=== PATIENT | male | born 1970 | race Two or more races ===

== ENCOUNTER → 2025-02-20 | Outpatient (CLI) | payer BC, SELFPAY | END | disposition home or self-care (01) | LOC: LABSPEC 12:28 | PROVIDERS: Referring Provider Dermatology; Visit Provider Dermatology | DX: L08.0 Pyoderma (principal) | CPT/HCPCS: 87070; 87077; 87186; 87205 ==

== ENCOUNTER 2025-03-24 10:45 | Emergency (ER) | payer BC, SELFPAY ==
[2025-03-24] VITALS (7 sets, daily range): BP systolic 132–157; BP diastolic 78–114; PULSE 73–96; RESP 11–18; TEMP 36.4–36.6; O2SAT 95–99; BMI 35.8
[2025-03-24 13:28] LABS: Anion Gap 12 (5-15); BUN 13 mg/dL (4-19); BUN/Creat Ratio 12.6 RATIO (10-20); Calcium,Total 8.7 mg/dL (7.6-11.0); Carbon Dioxide 22.0 mmol/L (21.0-32.0); Chloride 105 mmol/L (98-108); Estimated Creatinine Clearance 110.87 ml/min (50-250); Glucose 95 mg/dL (70-99); Potassium 4.3 mmol/L (3.3-5.1)
== END 2025-03-24 14:48 | disposition home or self-care (01) ==
PROVIDERS: Emergency Provider Emergency Medicine; Visit Provider Emergency Medicine
DX: R09.A2 Foreign body sensation, throat (principal); S00.86XA Insect bite (nonvenomous) of other part of head, initial encounter; W57.XXXA Bitten or stung by nonvenomous insect and other nonvenomous arthropods, initial encounter; I10 Essential (primary) hypertension; B95.8 Unspecified staphylococcus as the cause of diseases classified elsewhere; Z79.899 Other long term (current) drug therapy
CPT/HCPCS: 70491; 80048; 99283; Q9967; A4216

== ENCOUNTER → 2025-04-10 | Outpatient (CLI) | payer BC, SELFPAY | END | disposition home or self-care (01) | LOC: LABSPEC 15:14 | PROVIDERS: Referring Provider Nurse Practitioner Family; Visit Provider Nurse Practitioner Family | DX: L73.9 Follicular disorder, unspecified (principal) | CPT/HCPCS: 87070; 87205 ==

== ENCOUNTER 2025-08-23 07:10 | Emergency (ER) | payer BC, SELFPAY ==
[2025-08-23 07:11] VITALS: BP 152/98; PULSE 100; RESP 15; TEMP 36.3; O2SAT 100; BMI 38.2
--- NOTE | 2025-08-23 07:28 | EKG12_ITS ---
Test Reason : CP Blood Pressure : */* mmHG Vent. Rate : 103 BPM Atrial Rate : 103 BPM P-R Int : 136 ms QRS Dur : 78 ms QT Int : 344 ms P-R-T Axes : 19 0 18 degrees QTcB Int : 450 ms Sinus tachycardia Low voltage QRS Inferior infarct , age undetermined Abnormal ECG Confirmed by ADRI PEREIRA, MONI ([id number]), editor farm journal RAYO FOOTE ([id number]) on 08/25/2025 6:09:05 AM Referred By: BB Confirmed By: MONI RUSH MD
--- NOTE | 2025-08-23 07:33 | ED.VIS.CHEST ---
HPI History of Present Illness Chief Complaint: Chest Pain Informant: patient Narrative Narrative: Patient is a 54-year-old male with a history of LAD stent placement presenting with acute dyspnea and chest tightness. - Symptoms began upon waking around 0530 this morning. - Reports inability to catch my breath and really tight chest discomfort, preventing deep inhalation. - Associated symptoms include lightheadedness and nausea. - Denies focal chest pain, cough, or abdominal pain. - Noted tightness in legs and forearms, similar to sensations experienced during previous stent placement. - Denies lower extremity edema. - No prior history of DVT or PE. Denies history of asthma or COPD. - Engages in occasional cigar smoking, no cigarettes. - Yesterday, engaged in hunting activities involving significant physical exertion and sweating; minimal fluid intake reported. - Consumed a couple of glasses of wine last night. - Currently taking Valsartan and 81 mg aspirin; no other antiplatelet or anticoagulant use at this time. [facility] Medical History Coronary artery disease Myocardial infarct HTN (hypertension) Home Medications ?Medication ?Instructions ?Recorded ?Last Taken ?Type amlodipine 5 mg tablet 5 mg PO DAILY 03/24/25 08/23/25 History carvedilol 12.5 mg tablet 12.5 mg PO BID 03/24/25 08/23/25 History ergocalciferol (vitamin D2) 1,250 1,250 mcg PO QWEEK 03/24/25 08/23/25 History mcg (50,000 unit) capsule valsartan 320 mg tablet 320 mg PO DAILY 03/24/25 08/23/25 History testosterone cypionate 200 mg/mL 200 mg IM Q14D 08/23/25 Unknown History intramuscular oil Allergy/AdvReac Type Severity Reaction Status Date / Time No Known Allergies Allergy Verified 08/23/25 07:27 Surgical History Stented coronary artery Social History Smoking Status: Current some day smoker tobacco type: cigars ROS ROS ED Constitutional Constitutional ED: Denies chills or fever(s) Eyes Eyes: Denies change in vision or diplopia ENT ENT ED: Denies rhinorrhea or sore throat Cardiovascular Cardiovascular: Reports as per HPI and chest pain; Denies palpitations Respiratory/Chest Respiratory/Chest: Reports cough and dyspnea; Denies sputum Gastrointestinal Gastrointestinal: Reports nausea; Denies abdominal pain, diarrhea or vomiting Genitourinary Genitourinary ED: Denies dysuria or hematuria Musculoskeletal Musculoskeletal: Denies back pain or neck pain Integumentary Denies abscess or rash Neurologic Neurologic: Denies headache(s), paresthesias or weakness Psychiatric Psychiatric: Denies suicidal thoughts EXAM Physical Exam Const Vital Signs: 08/23/25 07:11 08/23/25 07:15 08/23/25 07:28 Temperature 97.4 F L Temperature Source Oral Pulse Rate 100 Respiratory Rate 15 Respiratory Effort Normal Respiratory Pattern Normal Blood Pressure 152/98 H Blood Pressure Mean 116 Pulse Ox 100 Oxygen Delivery Method Room Air Room Air Positive well nourished and well developed General Appearance ED: well developed and NAD HEENT Reports moist mucous membranes normocephalic and atraumatic Eyes PERRL and EOMs intact bilaterally Neck full ROM and supple Neck Narrative: Trachea midline. No JVD. Resp normal respiratory effort and clear to auscultation bilaterally Resp Narrative: Lungs are clear but possible decreased breath sounds right apex. Exam somewhat limited due to body habitus. Cardio regular rate, regular rhythm and no murmurs Rate: other Other Details: Heart rate around 100 GI non-tender and non-distended Auscultation: normoactive bowel sounds Palpation: soft Back/Spine no CVA tenderness General Back: other FROM Extremity normal to inspection General Extremety ED: Negative for edema, pulses abnormal or tenderness General Extremity: Negative for edema or pulses abnormal Neuro oriented x3, CN's II-XII intact bilaterally and no sensory deficits noted Sensorium / Orientation: awake and alert Motor Exam: strength 5/5 throughout Psych mental status grossly normal Skin no rashes or lesions noted and no wounds Heart Score History: Moderately Suspicious ECG: Normal Age: >45 - <65 years Risk Factors: >/= 3 Risk Factors or History of CAD Troponin: </= Normal Limit Score: 4 MDM MDM MDM Narrative Medical decision making narrative: Assessment: The patient is a 54-year-old male with PMH of prior coronary stent placement presenting for acute dyspnea, chest tightness, and diffuse extremity muscle tightness. Initial EKG is normal appearing with only mild tachycardia, troponin 8 ng/L and repeat 7 ng/L are within normal range and trending downward, D-dimer is normal ruling out pulmonary embolism, and normal proBNP rules out decompensated heart failure. After administration of 1 L IV fluids the dyspnea, chest tightness, and muscle symptoms resolved completely, supporting dehydration with associated muscle spasm?including possible diaphragmatic involvement?as the most likely etiology; acute coronary syndrome is unlikely given normal EKG and serial troponins. Plan: - Administered 1 L IV crystalloid for volume repletion. - Provided ondansetron for intermittent nausea. - Reassured patient; reviewed return precautions and outpatient follow-up instructions. - Discharged home in stable condition once asymptomatic and vitals remained normal. Diagnostics: - EKG interpreted: normal sinus rhythm, mild tachycardia, no ST-T ischemic changes. Independently interpreted by me, Bernardo Mota. - Labs: D-dimer normal; troponin 8 --> 7 ng/L; proBNP normal; BUN 20 mg/dL and creatinine 1.15 mg/dL consistent with mild pre-renal dehydration. Reevaluations: - Symptoms resolved after IV fluids; breathing comfortable, chest tightness and extremity discomfort resolved; vitals stable. Lab Data Attestation: I reviewed the patient's lab results. Labs: Laboratory Results - last 24 hr 08/23/25 08/23/25 08/23/25 07:13 07:56 09:25 WBC 6.9 RBC 4.91 Hgb 15.6 Hct 45.5 MCV 92.7 MCH 31.8 MCHC 34.3 RDW Std Deviation 42.6 RDW Coeff of Negrita 12.4 Plt Count 213 MPV 10.0 Immature Gran % (Auto) 0.400 Neut % (Auto) 47.5 Lymph % (Auto) 36.3 Holt % (Auto) 11.3 H Eos % (Auto) 3.6 Baso % (Auto) 0.9 Absolute Neuts (auto) 3.3 Absolute Lymphs (auto) 2.51 Nucleated RBC % 0 APTT 28.4 D-Dimer Quant (PE/DVT) 0.28 Sodium 138 Potassium 3.5 Chloride 103 Carbon Dioxide 19.5 L Anion Gap 15 BUN 20 H Creatinine 1.15 Estim Creat Clear Calc 99.76 Est GFR (MDRD) Non-Af 76 BUN/Creatinine Ratio 17.0 Glucose 120 H Calcium 8.9 Troponin T High Sens 8 Troponin T Hi Sens 2 Hr Cancelled 7 NT pro BNP II < 36 Radiography Diagnostic Testing: Clinical Impression(s) from Imaging Studies Chest X-Ray 08/23/25 07:40 IMPRESSION: No evidence of acute cardiopulmonary pathology. Reading Location: [facility] Rhythm Strip Rhythm Strip: Sinus Tach Rate: 103 Ectopy: None EKG Initial EKG: Attestation: I personally reviewed and interpreted this EKG as follows: Interpretation: No Acute Injury Pattern and Sinus Tachycardia Comments: Nml axis & intervals; nml EKG Prior EKG tracings: not available for review Prior: No Prior Discharge Plan Triage Chief Complaint: Chest Pain ED Provider: Bernardo Mota Dx/Rx/DC Orders Clinical Impression: Dehydration, Acute dyspnea, History of CAD (coronary artery disease) Instructions: ED Dehydration (Adult) Prescriptions: No Action testosterone cypionate 200 mg/mL oil 200 mg IM Q14D carvedilol 12.5 mg tablet 12.5 mg PO BID amlodipine 5 mg tablet 5 mg PO DAILY valsartan 320 mg tablet 320 mg PO DAILY ergocalciferol (vitamin D2) 1,250 mcg (50,000 unit) capsule 1,250 mcg PO QWEEK Primary Care Provider: DENNY GOMEZ Referrals: DENNY GOMEZ [Other] - 3-5 Days if not improving Print Language: Maltese Disposition Disposition: Home, Self Care
[2025-08-23 07:38] LABS: Hematocrit 45.5 % (40-54); Hemoglobin 15.6 g/dL (13.0-16.5); Immature Granulocytes Count 0.030 X10^3/uL (0.0-0.0); Mean Corp Hgb Conc 34.3 g/dL (32-36); Mean Corpuscular Volume 92.7 fL (80-94); Mean Platelet Vol. 10.0 fl (6.2-12.0); NRBC Flagged by Analyzer 0 % (0-5); Platelet Count 213 K/mm3 (150-450); RBC Distribution Width CV 12.4 % (11.6-14.6); RBC Distribution Width SD 42.6 fl (35.1-43.9); Red Blood Count 4.91 M/mm3 (4.6-6.2); White Blood Count 6.9 K/mm3 (4.4-11.0)
--- NOTE | 2025-08-23 07:40 | RAD_ITS ---
PROCEDURE: CHEST 1 VIEW (PORTABLE) 08/23/2025 REASON FOR EXAM: CHEST PAIN TECHNIQUE: Frontal view of the chest. COMPARISON: None FINDINGS: The lungs are clear. The heart borders mediastinum and pulmonary vascular pattern are normal. The upper abdominal bowel gas pattern is normal. There are no bony abnormalities of the chest. RAD/Chest 1 View (Portable) IMPRESSION: No evidence of acute cardiopulmonary pathology. Reading Location: [id number]
[2025-08-23] MEDS: 0.9% Normal Saline (500mL Bag) 500 ML 999 ML IV (07:44)
[2025-08-23 07:57] LABS: Troponin T High Sensitivity 8 ng/L (<=22)
[2025-08-23 08:00] LABS: Anion Gap 15 (5-15); BUN 20 mg/dL (4-19); BUN/Creat Ratio 17.0 RATIO (10-20); Calcium,Total 8.9 mg/dL (7.6-11.0); Carbon Dioxide 19.5 mmol/L (21.0-32.0); Chloride 103 mmol/L (98-108); Estimated Creatinine Clearance 99.76 ml/min (50-250); Glucose 120 mg/dL (70-99); Potassium 3.5 mmol/L (3.3-5.1); Pro- Brain NATRIURETIC PEPTIDE < 36 pg/mL (<=900)
--- OUTSIDE RECORDS SUMMARY | 2025-08-23 08:07 | XMS RPT_ITS | CCD ---
Author Organization [facility] Inform ion Partnership [facility] Care Team Providers Care Dimethylaniline Sulfator Operator Name Role Phone Unavailable Primary Care Provider UnavailZULY Willis MD Attending Unavailabl marisol GOMEZ MD, ZULY Primary Care Unavailmichael GOMEZ MD, [facility] Primary Care UnavailBart BARTLETT, DEYSI Attending Unavailable JASON PEREIRA, ZULY Primary Care UnavailSHARITA Jimenez CNP Attending Unavailable JASON PEREIRA, ZULY Primary Care UnavailZULY Willis MD Attending Unavailmichael GOMEZ MD, ZULY Primary Care Unavailmichael GOMEZ MD, ZULY Primary Care UnavailSHARITA Jimenez CNP Attending Unavailable ZULY GOMEZ MD Attending Unavailmichael GOMEZ MD, ZULY Primary Care Unavailabl marisol GOMEZ MD, ZULY Primary Care Unavailmichael GOMEZ MD, ZULY Primary Care Unavailmichael GOMEZ MD, ZULY Attending Unavailabl marisol GOMEZ MD, ZULY Attending Unavailabl marisol GOMEZ MD, [facility] Primary Care Unavailabl marisol GOMEZ MD, [facility] Primary Care Unavailabl marisol BARTLETT, DEYSI Attending Unavailable JASON PEREIRA, ZULY Attending Unavailmichael GOMEZ MD, [facility] Primary Care Unavailabl marisol GOMEZ MD, [facility] Primary Care Unavailabl marisol GOMEZ MD, ZULY Attending Unavailabl marisol GOMEZ MD, ZULY Attending Unavailabl marisol GOMEZ MD, [facility] Primary Care Unavailmichael GOMEZ MD, ZULY Attending Unavailmichael GOMEZ MD, [facility] Primary Care Unavailabl e Care Physician, No Primary Primary Care Provider Unavailable Crow PEREIRA, Dr. Broussard Attending Provider Crow PEREIRA, Dr. Broussard Referring Provider Dr. Benigno Berry DO Emergency Provider JASON ZULY Primary Care Provider Dr. Benigno Berry DO Attending Provider Hartong DEVELOPMENTAL WRITING INSTRUCTOR-C, Joy Attending Provider Hartong DEVELOPMENTAL WRITING INSTRUCTOR-C, Joy Referring Provider Care Physician, No Primary Primary Care Unava ilable Bobo Maria Attending Unavailable Bobo Maria Referring Unavailable Joy Reyes Attending Unavailable Joy Reyes Referring Unavailable ARIELLA, MICKY Primary Care Unavailable Benigno Berry Attending Unavailable [facility] [place] Primary Care Unavailable JASON PEREIRA, [facility] Primary Care Physician JASON PEREIRA, [facility] Care Unavailabl marisol GOMEZ MD, [facility] Primary Care Unavailabl marisol GOMEZ MD, [facility] Primary Care Unavailabl e SHARITA LO CNP Attending Unavailable JASON PEREIRA, [facility] Primary Care Unavailabl ALTAGRACIA Benson MD Referring Unavailab renae GOMEZ MD, [facility] Unavailabl marisol GOMEZ MD, [facility] Primary Care Unavailabl marisol GOMEZ MD, [facility] Primary Care Unavailabl e JASON PEREIRA, [facility] Primary Care Unavailabl marisol GOMEZ MD, [facility] Primary Care Unavailabl marisol GOMEZ MD, [facility] Primary Care Unavailabl marisol GOMEZ MD, ZULY Attending Unavailabl marisol GOMEZ MD, [facility] Primary Care Unavailabl marisol GOMEZ MD, [facility] Primary Care Unavailabl marisol GOMEZ MD, [facility] Primary Care Unavailabl marisol GOMEZ MD, ZULY Attending Unavailabl e JASON PEREIRA, [facility] Primary [facility] Unavailabl marisol GOMEZ MD, [facility] Primary Care Unavailabl DEYSI Dawkins Attending Unavailable JASON PEREIRA, [facility] Primary Care Unavailabl GODWIN Alcocer MD Attending Unavailable JASON PEREIRA, [facility] Unavailabl marisol GOMEZ MD, [facility] Primary [facility] Unavailabl marisol GOMEZ MD, [facility] Primary Care Unavailabl e SHARITA LO CNP Attending SHARITA Mcneill CNP Referring ZULY Owens MD Primary Care ZULY Taylor MD Attending David GOMEZ MD, ZULY Primary Care DEYSI Saleem Attending Unavailable JASON PEREIRA, ZULY Primary Care David damon Medications Current Medications Medication Drug Class(es) Dates Sig (Normalized) Sig (Original) amLODIPine 5 mg oral tablet (4 sources) Dihydropyridine Calcium Channel Koffi Start: 04-23-2025 amLODIPine 5 mg oral tablet 5 mg 1 tabs, ORAL, DAILY, 90 tabs, Date: 04/23/25 2:16:00 PM EDT, [id number], Tablet, 1 tabs ORAL DAILY, 180.34, 02/22/2024 12:18:00 EDT, Height/Length Dosing, cm, 119.4, 02/22/2024 12:18:00 EDT, Weight Dosing, kg Start Date: 04/23/25 Status: Ordered Medication Dispense Status: Completed Quantity: 90.0 Unit: tabs Total Allowed Fills: 4 Fills Dispensed: 0 Start: 03-24-2025 take 1 tablet by michelle th once daily Amlodipine 5 mg tablet Active 5 mg PO DAILY March 24, 2025 12:00am aspirin 81 mg delayed release oral tablet (6 sources) Platelet Aggregation Inhibitor, Nonsteroidal Anti-inflammatory Drug Start: 01-09-2015 aspirin 81 mg ora l delayed release tablet 81 mg 1 tabs, ORAL, DAILY WITH BREAKFAST, Date: 01/09/15 1:31:00 PM EDT, Tablet EC Start Date: 01/09/15 Status: Ordered Medication Dispense Status: Completed Total Allowed Fills: 1 Fills Dispensed: 0 Comment on above: Take 1 tablet by michelle th once daily. carvedilol 12.5 mg oral tablet (4 sources) alpha-Adrenergic Koffi, beta-Adrenergic Koffi Start: 04-23-2025 carvedilol 12.5 mg oral tablet 12.5 mg 1 tabs, ORAL, BID, 180 tabs, Date: 04/23/25 2:16:00 PM EDT, [id number], Tablet, 1 tabs ORAL BID, 180.34, 02/22/2024 12:18:00 EDT, Height/Length Dosing, cm, 119.4, 02/22/2024 12:18:00 EDT, Weight Dosing, kg Start Date: 04/23/25 Status: Ordered Medication Dispense Status: Completed Quantity: 180.0 Unit: tabs Total Allowed Fills: 4 Fills Dispensed: 0 Start: 03-24-2025 take 1 tablet by michelle th twice daily Carvedilol 12.5 mg tablet Active 12.5 mg PO TWICE A DAY March 24, 2025 12:00am cyclobenzaprine hydrochloride 10 mg oral tablet (3 sources) Muscle Relaxant Start: 01-02-2006 take 1 tablet by mouth three times daily as needed FLEXERIL 10 MG OR TABS 1 tab po TID prn 90 0 01/02/2006 Active diclofenac sodium 75 mg delayed release oral tablet (3 sources) Nonsteroidal Anti-inflammatory Drug Start: 03-02-2006 take 1 capsule by mouth twice daily VOLTAREN 75 MG OR TBEC Indications: Displacement of lumbar intervertebral disc without myelopathy 1 CAPSULE PO BID 60 0 03/02/2006 Active doxycycline hyclate 100 mg oral capsule (2 sources) Tetracycline-class Drug Start: 03-24-2025 take 1 capsule by mouth twice daily Doxycycline Hyclate 100 mg capsule Active 100 mg PO TWICE A DAY March 24, 2025 12:00am ergocalciferol 1.25 mg oral capsule (4 sources) Provitamin D2 Compound Start: 04-23-2025 ergocalciferol 1.25 mg (50,000 intl units) oral capsule = Vitamin D 50,000 intl_unit 1 caps, ORAL, MONDAY, 13 caps, Date: 04/23/25 2:16:00 PM EDT, [facility]/pharmacy #[id number], Capsule, 1 caps ORAL MONDAY, 180.34, 02/22/2024 12:18:00 EDT, Height/Length Dosing, cm, 119.4, 02/22/2024 12:18:00 EDT, Weight Dosing, kg Start Date: 04/23/25 Status: Ordered Medication Dispense Status: Completed Quantity: 13.0 Unit: caps Total Allowed Fills: 4 Fills Dispensed: 0 Start: 03-24-2025 Ergocalciferol (Vitamin D2) 1,250 mcg (50,000 unit) capsule Active 1250 ug PO EVERY WEEK March 24, 2025 12:00am fluticasone propionate 0.05 mg/actuat metered dose nasal spray (2 sources) Corticosteroid Start: 02-05-2024 Flonase 50 mcg/inh nasal spray 2 sprays, Nasal, DAILY, # 16 g, Refill(s) 0, Date: 02/05/24 1:42:00 PM EDT Start Date: 02/05/24 Status: Ordered Medication Dispense Status: Completed Quantity: 16.0 Unit: g Total Allowed Fills: 1 Fills Dispensed: 0 methocarbamol 750 mg oral tablet (3 sources) Muscle Relaxant Start: 09-22-2006 take 1-2 tablets by mouth every eight hours as needed ROBAXIN-750 750 MG OR TABS Indications: Displacement of lumbar intervertebral disc without myelopathy , Sprain of lumbar region 1-2 TABLET EVERY 8 HOURS NEEDED 50 0 09/22/2006 Active methylPREDNISolone 4 mg oral tablet (3 sources) Corticosteroid Start: 09-22-2006 MEDROL (JONNIE) 4 MG OR TABS Indications: Displacement of lumbar intervertebral disc without myelopathy , Sprain of lumbar region as directed 1 0 09/22/2006 Active valsartan 320 mg oral tablet (4 sources) Angiotensin 2 Receptor Koffi Start: 04-23-2025 valsartan 320 mg oral tablet 1 tabs, ORAL, DAILY, 90 tabs, Date: 04/23/25 2:16:00 PM EDT, [id number], 1 tabs ORAL DAILY, 180.34, 02/22/2024 12:18:00 EDT, Height/Length Dosing, cm, 119.4, 02/22/2024 12:18:00 EDT, Weight Dosing, kg Start Date: 04/23/25 Status: Ordered Medication Dispense Status: Completed Quantity: 90.0 Unit: tabs Total Allowed Fills: 4 Fills Dispensed: 0 Start: 03-24-2025 take 1 tablet by once daily Valsartan 320 mg tablet Active 320 mg PO DAILY March 24, 2025 12:00am Completed/Discontinued Medications Medication Drug Class(es) Dates Sig (Normalized) Sig (Original) acetaminophen 300 mg / codeine phosphate 30 mg oral tablet (1 source) Opioid Agonist Start: 01-12-2023 End: 01-15-2023 take 1-2 tablets by mouth twice daily acetaminophen-cod eine (TYLENOL-CODEINE #3) 300-30 mg per tablet Indications: Ingrowing nail , Pain in toe of right foot , Pain in toe of left foot , H/O ingrown nail Take 1-2 tablets by mouth twice daily for 3 days. 6 tablet 0 01/12/2023 01/15/2023 Comment on above: Take 1-2 tablets by mouth twice daily for 3 days. acetaminophen 325 mg / oxyCODONE hydrochloride 5 mg oral tablet (4 sources) Opioid Agonist Start: 11-07-2022 End: 11-14-2022 take 1 tablet by mouth twice daily oxyCODONE-acetami nophen (PERCOCET) 5-325 mg tablet Indications: Ingrowing nail Take 1 tablet by mouth twice daily for 7 days. 14 tablet 0 11/07/2022 11/14/2022 Start: 09-22-2006 take 1 tablet by michelle th every six hours as needed PERCOCET 5-325 MG OR TABS Indications: Displacement of lumbar intervertebral disc without myelopathy , Sprain of lumbar region 1 TABLET EVERY 6 HOURS NEEDED 28 0 09/22/2006 Active Comment on above: Take 1 tablet by michelle th twice daily for 7 days. 1 ml evolocumab 140 mg/ml prefilled syringe (4 sources) PCSK9 Inhibitor Start: 07-08-2025 Repatha Prefilled Syringe 140 mg/mL subcutaneous solution 140 mg 1 mL, Subcutaneous, [id number], inject 1 mL subcutaneously every 14 days. rotate injection sites, 6 mL, Date: 07/08/25 3:42:00 PM EDT, [facility]/pharmacy #[id number], Solution, 1 mL Subcutaneous [id number],Instr:inject 1 mL subcutaneously every 14 days. rotate injection sites, 180.34, 02/22/2024 12:18:00 EDT, Height/Length Dosing, cm, 119.4, 02/22/2024 12:18:00 EDT, Weight Dosing, kg Start Date: 07/08/25 Status: Ordered Medication Dispense Status: Completed Quantity: 6.0 Unit: mL Total Allowed Fills: 4 Fills Dispensed: 0 Start: 07-08-2025 Repatha Prefil led Syringe 140 mg/mL subcutaneous solution 140 mg, Subcutaneous, [id number], rotate injection sites, 2 EA, Date: 07/08/25 3:29:00 PM EDT, Solution Start Date: 07/08/25 Status: Ordered Medication Dispense Status: Completed Quantity: 2.0 Unit: EA Total Allowed Fills: 1 Fills Dispensed: 0 Start: 03-24-2025 Evolocumab (Ev olocumab 140 Mg/Ml Subcutaneous Syringe) 140 mg/mL syringe Active 140 mg SC March 24, 2025 12:00am multivitamin tablet (4 sources) take 1 tablet by mouth once daily multivitamin tablet Take 1 tablet by mouth once daily. 0 Active Comment on above: Take 1 tablet by michelle th once daily. olmesartan medoxomil 20 mg oral tablet (4 sources) Angiotensin 2 Receptor Koffi Start: 11-04-19 take 1 tablet by mouth once daily olmesartan (BENICAR) 20 mg tablet Take 1 tablet by mouth once daily. 30 tablet 11 11/04/2014 Active Comment on above: Take 1 tablet by michelle th once daily. simvastatin 40 mg oral tablet (4 sources) HMG-CoA Reductase Inhibitor Start: 01-28-20 take 1 tablet by mouth once daily at bedtime simvastatin (ZOCOR) 40 mg tablet Indications: Hyperlipemia Take 1 tablet by mouth daily at bedtime. 0 01/27/2015 Active Comment on above: Take 1 tablet by michelle th daily at bedtime. Testosterone Cypionate 200 mg/mL intramuscular solution (1 source) Start: 04-30-20 End: 10-15-19 Testosterone Cypionate 200 mg/mL intramuscular solution 200 mg 1 mL, IM, [id number], 6 mL, Date: 04/30/25 8:53:00 AM EDT, [facility]/pharmacy #[id number], Solution, 1 mL IM [id number],x12 weeks, Hypogonadism in male, 180.34, 02/22/2024 12:18:00 EDT, Height/Length Dosing, cm, 119.4, 02/22/2024 12:18:00 EDT, Weight Dosing, kg Start Date: 04/30/25 Stop Date: 10/15/25 Status: Ordered Quantity: 6.0 Unit: mL Repeat number: 2 Indications: Testicular hypofunction; Problems Active Problems Problem Classification Problem Date Documented Date Episodic/Chronic Abdominal pain (4 sources) Abdominal pain; Translations: [Right upper quadrant pain] 12-11-2024 Episodic Allergic reactions (4 sources) Allergic condition; Translations: [Eczema] 12-11-2024 Episodic Coronary atherosclerosis and other heart disease (2 sources) Coronary arteriosclerosis 02-01-2016 Chronic Disorders of lipid metabolism (8 sources) Hyperlipidemia; Translations: [Hyperlipidemia, unspecified] Onset: 4 05-29-2014 Chronic E Codes: Natural/environment (2 sources) Insect bite - wound; Translations: [Bitten or stung by nonvenomous insect and other nonvenomous arthropods, initial encounter] 03-24-2025 Episodic Essential hypertension (8 sources) Hypertensive disorder; Translations: [Essential (primary) hypertension] 09-05-2012 Chronic Nutritional deficiencies (2 sources) Vitamin D deficiency 07-19-2017 Chronic Other and unspecified benign neoplasm (2 sources) Pituitary microadenoma 07-05-2023 Episodic Other connective tissue disease (1 source) Pain of toe of right foot; Translations: [Pain in right toe(s)] 01-12-2023 Episodic Other connective tissue disease (1 source) Pain of toe of left foot; Translations: [Pain in left toe(s)] 01-12-2023 Episodic Other connective tissue disease (2 sources) Pain in right arm 04-06-2021 Episodic Other ear and sense organ disorders (4 sources) Impacted cerumen 04-27-2023 Episodic Other endocrine disorders (1 source) Hyperparathyroidism 07-05-2023 Chronic Other infections; including parasitic (2 sources) H/O: infectious disease; Translations: [Personal history of other infectious and parasitic diseases] 03-24-2025 Episodic Other nutritional; endocrine; and metabolic disorders (4 sources) Obese class I; Translations: [Obesity, unspecified] Onset: 6 12-09-2015 Chronic Other nutritional; endocrine; and metabolic disorders (1 source) Hypercalcemia 07-05-2023 Chronic Other nutritional; endocrine; and metabolic disorders (2 sources) Obesity 07-05-2023 Chronic Other screening for suspected conditions (not mental disorders or infectious disease) (6 sources) Decreased testosterone level ; Translations: [Other specified abnormal findings of blood chemistry] Onset: 3 11-15-2012 Episodic Other skin disorders (3 sources) Ingrowing nail; Translations: [Ingrowing nail] Episodic Other skin disorders (1 source) H/O: Disorder; Translations: [Personal history of diseases of the skin and subcutaneous tissue] 01-12-2023 Episodic Other skin disorders (1 source) Follicular disorder, unspecified; Translations: [Follicular disorder, unspecified] Onset: 5 Episodic Other upper respiratory disease (2 sources) Rhinitis 12-25-2023 Chronic Residual codes; unclassified (2 sources) Finding of neck region; Translations: [Other general symptoms and signs] 03-24-2025 Episodic Skin and subcutaneous tissue infections (1 source) Pyoderma; Translations: [Pyoderma] Onset: 5 Episodic Spondylosis; intervertebral disc disorders; other back problems (6 sources) Displacement of lumbar intervertebral disc without myelopathy; Translations: [Other intervertebral disc displacement, lumbar region] Onset: 6 11-29-2005 Chronic Unclassified (1 source) Foreign body sensation, throat; Translations: [Foreign body sensation, throat] Onset: 5 Unclassified (2 sources) Otalgia of right ear 05-29-2025 Unclassified (2 sources) Statin not tolerated (context-dependent category) 11-11-2022 Past or Other Problems Problem Classification Problem Date Documented Da te Episodic/Chronic Other and unspecified benign neoplasm (4 sources) Lipoma of buttock; Translations: [Benign lipomatous neoplasm of skin and subcutaneous tissue of trunk] Onset: 07-08-2014 07-08-2014 Episodic Other upper respiratory disease (4 sources) Deviated nasal septum; Translations: [Deviated nasal septum] Onset: 12-15-2010 12-15-2010 Episodic Other upper respiratory disease (4 sources) Hypertrophy of nasal turbinates; Translations: [Hypertrophy of nasal turbinates] Onset: 12-15-2010 12-15-2010 Episodic Sprains and strains (11 sources) Lumbar sprain; Translations: [Sprain of ligaments of lumbar spine, initial encounter] Onset: 03-02-2006 11-04-2021 Episodic Viral infection (5 sources) Verruca plantaris; Translations: [Plantar wart] Onset: 07-27-2016 07-27-2016 Episodic Results Test Name Value Interpretation Reference Range Facility [facility] ENDOCRN Physician Progre ss Noteon 07-02-2025 [facility] ENDOCRN Physician Progress Note XANDER THURMAN :1970 Registration Date:07/02/2025 Chief Complaint follow up for parathyroid/calcium History of Present Illness Apparently in [address] Pace - was told has pituitary microadenoma He had a MRI repeated 10/11 - Near complete resolution of previously seen 5 mm hypoenhancing lesion in the pituitary gland, now barely perceptible He has statin intolerance - sees Dr Kent - now takes repatha - had been off this and now resumed He underwent parathyroid exploration and removal of right upper parathyroid adenoma by Dr. Jenkins 02/20/24 His insurance declined to cover GLP1 meds for wgt loss He had made changes in his diet and has stopped ETOH - He had lost wgt but then gained some back - states went off course He would like to pursue compounded semaglutide - He has not seen Anamika Montero CNP - states with his sons wedding was busy and forgot He also did not see Dr Hubbard as advised - to get screened for [place] - plans to see now In past he was on testosterone shots - He had stopped when he had CAD and had stents placed 7 yrs ago Of note in March and April he had several episodes of skin rashes and was treated with steroids on at least 3 occasions - around that time he also had a repeat lab for testosterone done at 3pm which was low - Was started on Testosterone by PCP - He only took one dose - states may have felt better for 2 days but no difference - He did not continue that and would like to revisit this Physical Exam Vitals & Measurements Systolic Blood Pressure: 139 mmHg High (07/02/25 09:37:00) Diastolic Blood Pressure: 91 mmHg High (07/02/25 09:37:00) Peripheral Pulse Rate: 78 bpm (07/02/25 09:37:00) Mean Arterial Pressure: 107 mmHg (07/02/25 09:37:00) BP Site2: Left arm (07/02/25 09:37:00) Height/Length Measured: 180 cm (07/02/25 09:37:00) Weight Measured: 117 kg (07/02/25 09:37:00) Body Mass Index Measured: 36.11 kg/m2 (07/02/25 09:37:00) Weight Measured - lbs2: 258 lb (07/02/25 09:37:00) Height/Length Measured - in2: 70.87 in (07/02/25 09:37:00) Body Mass Index Measured English2: 36.11 kg/m2 (07/02/25:37:00) BSA: 2.42 m2 (07/02/25:37:00) Ht/Wt Measurement Refused by Patient?2: No (07/02/25 09:37:00) Depression Screening Scores Initial Depression Screen Score: 0 (07/02/25:37:00) Fall Risk Assessment Is the patient ambulatory (mobile): Yes (07/02/25:37:00) Have you had a fall within the past: No (07/02/25::) Have you had 2 or more falls in the past: No (07/02/25::) Comfortable in no acute distress Normal gait Medication Reconciliation What How Much When Instructions Contact Physician amLODIPine (amLODIPine 5 mg oral tablet) 1 Tabs Oral DAILY Ordering Physician: ZULY GOMEZ MD Contact prescribing physician if questions or concerns Contact Physician aspirin (aspirin 81 mg oral delayed release tablet) 1 Tabs Oral DAILY WITH BREAKFAST Ordering Physician: VAN FARLEY MD Contact prescribing physician if questions or concerns Contact Physician carvedilol (carvedilol 12.5 mg oral tablet) 1 Tabs Oral TWICE A DAY Ordering Physician: ZULY GOMEZ MD Contact prescribing physician if questions or concerns Contact Physician ergocalciferol = Vitamin D (ergocalciferol 1.25 mg (50,000 intl units) oral capsule = Vitamin D) 1 Capsules Oral MONDAY Ordering Physician: ZULY GOMEZ MD Contact prescribing physician if questions or concerns Contact Physician fluticasone nasal (Flonase 50 mcg/ inh nasal spray) 2 Sprays Nasal DAILY Contact prescribing physician if questions or concerns Contact Physician valsartan (valsartan 320 mg oral tablet) 1 Tabs Oral DAILY Ordering Physician: ZULY GOMEZ MD Contact prescribing physician if questions or concerns Assessment/Plan This Visit Diagnosis 1. 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 12/31/2025 +/- 28 days, Order for future visit-Diagnosis required, Dx: Low testosterone / Obesity / Pituitary microadenoma COMPMETA(CMP), ROUTINE, *Est. 12/31/2025 +/- 28 days, Order for future visit-Diagnosis required, Dx: Low testosterone / Obesity / Pituitary microadenoma FSH, ROUTINE, *Est. 12/31/2025 +/- 28 days, Order for future visit-Diagnosis required, Dx: Low testosterone / Obesity / Pituitary microadenoma IRON GROUP, ROUTINE, *Est. 12/31/2025 +/- 28 days, Order for future visit-Diagnosis required, Dx: Low testosterone / Obesity / Pituitary microade (more content not included)... Normal [facility] Medicine Physician P stacey Bui 05-29-2025 [facility] Medicine Physician Progress Note CUCA XANDER PLASCENCIA :1970 Registration Date:05/29/2025 Chief Complaint right ear pain x1 week History of Present Illness Disclaimer: The content of this note was generated by an artificial intelligence (AI) language model version 25.Q3.1.0 The patient is a 54-year-old male with a history of recurrent right earwax buildup, presenting with right ear pain. Right Ear Pain and Earwax Buildup The patient reports right ear pain for about one week, with clicking and popping sensations. Symptoms began a few days after a recent root canal. He has a history of recurrent right earwax buildup, typically requiring cleaning or flushing about once a year, and has previously attempted at-home earwax removal. He expresses concern about a possible ear infection as he is scheduled to travel the next morning. He denies fever or chills in the past couple of days. Sinus Symptoms Approximately7 days ago, the patient experienced severe symptoms on the opposite side of his head, describing it as the worst-smelling and tasting infection he has ever had, with a greenish, unpleasant taste similar to a sinus infection but more intense. He reports some improvement after blowing out the sinus material. Symptoms lasted about 3 days. Review of Systems Ears: Positive for ear pain, clicking and popping, smelling and tasting infection, greenish nasty taste, and ear irritation. Constitutional: Negative for fever or chills. Physical Exam Vitals & Measurements Systolic Blood Pressure: 132 mmHg High (05/29/25::) Diastolic Blood Pressure: 86 mmHg High (05/29/25) SpO2: 95 % (05/29/25) Peripheral Pulse Rate: 101 bpm High (05/29/25) Mean Arterial Pressure: 101 mmHg (05/29/25) BP Site2: Left arm (05/29/25) Height/Length Measured: 180 cm (05/29/25:) Weight Measured: 118 kg (05/29/25) Body Mass Index Measured: 36.42 kg/m2 (05/29/25:) Weight Measured - lbs2: 260 lb (05/29/25:) Height/Length Measured - in2: 71 in (05/29/25) Body Mass Index Measured English2: 36.26 kg/m2 (05/29/25) BSA: 2.43 m2 (05/29/25:) Ht/Wt Measurement Refused by Patient?2: No (05/29/25) Depression Screening Scores Initial Depression Screen Score: 0 (05/29/25) Fall Risk Assessment Is the patient ambulatory (mobile): Yes (05/29/25::) Have you had a fall within the past: No (05/29/25) Have you had 2 or more falls in the past: No (05/29/25) Vital signs: reviewed, stable General: Awake alert oriented x 3, no acute distress. HEENT: normocephalic, atraumatic. Conjunctiva clear without exudate or hemorrhage, EOM intact, PEERLA. Left Ear canal clear without discharge, TM normal in appearance good cone of light. Right ear canal impacted with cerumen. Removed with instrumentation, patient tolerated well. TM normal in appearance good cone of light. Hearing intact with good acuity to whispered voice. Nose/throat/mouth mucosa pink and moist. Integumentary: pink, warm, dry. Psych: Cooperative, pleasant, appropriate mood & affect Medication Reconciliation What How Much When Why Instructions Unchanged amLODIPine (amLODIPine 5 mg oral tablet) 1 Tabs Oral DAILY Unchanged aspirin (aspirin 81 mg oral delayed release tablet) 1 Tabs Oral DAILY WITH BREAKFAST Unchanged carvedilol (carvedilol 12.5 mg oral tablet) 1 Tabs Oral TWICE A DAY Unchanged ergocalciferol = Vitamin D (ergocalciferol 1.25 mg (50,000 intl units) oral capsule = Vitamin D) 1 Capsules Oral MONDAY Unchanged fluticasone nasal (Flonase 50 mcg/ inh nasal spray) 2 Sprays Nasal DAILY Unchanged testosterone (Testosterone Cypionate 200 mg/ mL intramuscular solution) 1 Milliliter IM EVERY FOURTEEN DAYS Hypogonadism in male Duration: 12 Weeks Unchanged valsartan (valsartan 320 mg oral tablet) 1 Tabs Oral DAILY Assessment/Plan Patient is a 54-year-old male with a history of impacted cerumen presenting for evaluation of right ear pain. This Visit Diagnosis 1. Right ear pain H92.01 X 1 week No evidence of infection on exam Cerumen removed with instrumentation, patient tolerated well Follow-up with oral surgeon tomorrow for the root canal follow-up Return to office if no improvement of symptoms in 2 weeks Ordered: AMB Office/Outpt Est Pt Mod MDM / 30 min 05791, 05/29/2025 13:50:00 EDT, Right ear pain / Right ear impacted cerumen 2. Right ear impacted cerumen H61.21 See #1 Ordered: AMB Office/Outpt Est Pt Mod MDM / 30 min 33313, 05/29/2025 13:50:00 EDT, Right ear pain / Right ear impacted cerumen AMB Remove impctd cerumen w/[place] [id number], 05/29/2025 13:50:00 EDT, Right ear impacted cerumen, 1 Problem List/Past Medical History Ongoing Abdominal pain Abnormal thyroid blood test Allergy Arm pain, right CAD (coronary artery disease) Eczema High cholesterol HTN (hypertension) (more content not included)... Normal [facility] Patient Letteron 04-28-2025 Patient Letter (Inserted Image. Ruthie ble to display) April 28, 2025 XANDER CUCA [id number] [phone] To Whom It May Concern: The above-named patient has been under our care since April 26, 2025 and may return to work on April 29, 2025 with the following restrictions: none If you have further questions regarding this patient?s health status, please call our office. Thank you, Zuly Gomez MD. [facility] [address] [place] [address], [address] [place] [id number] , Normal [facility] Medicine Physician Kalia ibarra Noteon 04-23-2025 [facility] Medicine Physician Progress Note XANDER THURMAN :1970 Registration Date:04/23/2025 Chief Complaint Follow up HTN and CAD History of Present Illness Disclaimer: The content of this note was generated by an artificial intelligence (AI) language model version 25.Q3.0.0 The patient is a 54-year-old male with a history of coronary artery disease, hyperlipidemia, and hypertension, presenting for a 4-month follow-up. Recurrent Hand Swelling and Skin Lesions The patient reports recurrent swelling and blistering of the hands following insect bites. After completing a five-day course of antibiotics, he was bitten again and developed swelling at the site. He has completed three rounds of doxycycline, with additional medication available for flare-ups. Despite treatment, the condition persists. A knockdown worker evaluated him and suggested a possible autoimmune etiology, described as 'pyodermic angioglossum.' The patient notes that symptoms may be related to a recent back surgery or an allergic reaction to the insect bites. He has had multiple lesions and blisters, and a culture was performed. He is considering having an EpiPen available for future reactions. Gastrointestinal Symptoms and Diverticulitis The patient has a history of diverticulitis, previously identified on a CT scan. He is scheduled for an MRI as the next diagnostic step and has requested a referral to a equipment engineering technician. He is aware that a colonoscopy may be indicated to further evaluate his condition. Coronary Artery Disease and Hypertension The patient has a history of coronary artery disease and hypertension. He reports that his blood pressure is currently well controlled, with a recent reading of 120/80 mmHg. He has lost 30 pounds but notes some recent weight regain. He sees his associate chemist annually and has stopped taking a medication over the past month. Laboratory Monitoring and Metabolic Health The patient has a history of hyperlipidemia, statin intolerance, and vitamin D deficiency. His last LDL was 49 mg/dL. He requests that his triglycerides and calcium be checked with upcoming blood work. No new symptoms or interventions related to vitamin D deficiency were discussed. Review of Systems Musculoskeletal: Positive for swelling in hands. Cardiovascular: Negative for heart issues. Positive for good blood pressure and cholesterol. Gastrointestinal: Positive for diverticulitis. Physical Exam Vitals & Measurements Systolic Blood Pressure: 122 mmHg High (04/23/25 14:07:00) Diastolic Blood Pressure: 80 mmHg (04/23/25 14:07:00) Respiratory Rate: 14 br/min (04/23/25 14:07:00) SpO2: 97 % (04/23/25 14:07:00) Peripheral Pulse Rate: 96 bpm (04/23/25 14:07:00) Mean Arterial Pressure: 94 mmHg (04/23/25 14:07:00) BP Site2: Left arm (04/23/25 14:07:00) Height/Length Measured: 180 cm (04/23/25 14:07:00) Weight Measured: 116 kg (04/23/25 14:07:00) Body Mass Index Measured: 35.8 kg/m2 (04/23/25 14:07:00) Weight Measured - lbs2: 256 lb (04/23/25 14:07:00) Height/Length Measured - in2: 71 in (04/23/25 14:07:00) Body Mass Index Measured English2: 35.7 kg/m2 (04/23/25 14:07:00) BSA: 2.41 m2 (04/23/25 14:07:00) Ht/Wt Measurement Refused by Patient?2: No (04/23/25 14:07:00) Depression Screening Scores Initial Depression Screen Score: 0 (04/23/25 14:07:00) Fall Risk Assessment Is the patient ambulatory (mobile): Yes (04/23/25 14:07:00) Have you had a fall within the past: No (04/23/25 14:07:00) Have you had 2 or more falls in the past: No (04/23/25 14:07:00) Integumentary: Localized swelling at the site of a recent insect bite Medication Reconciliation What How Much When Instructions New amLODIPine (amLODIPine 5 mg oral tablet) 1 Tabs Oral DAILY Refills: 3 Pickup at [facility]/pharmacy #[id number] New carvedilol (carvedilol 12.5 mg oral tablet) 1 Tabs Oral TWICE A DAY Refills: 3 Pickup at [facility]/pharmacy #[id number] New ergocalciferol = Vitamin D (ergocalciferol 1.25 mg (50,000 intl units) oral capsule = Vitamin D) 1 Capsules Oral MONDAY Refills: 3 Pickup at [facility]/pharmacy #[id number] New valsartan (valsartan 320 mg oral tablet) 1 Tabs Oral DAILY Refills: 3 Pickup at [facility]/pharmacy #[id number] Unchanged aspirin (aspirin 81 mg oral delayed release tablet) 1 Tabs Oral DAILY WITH BREAKFAST Unchanged fluticasone nasal (Flonase 50 mcg/ inh nasal spray) 2 Sprays Nasal DAILY Pharmacy Information [facility]/pharmacy #[id number]: [address], [place] [id number] [phone] What How Much When Comments Stop Taking azithromycin (Azithromycin 5 Day Dose Pack 250 mg oral tablet) See instructions as directed on package labeling Stop Taking methylPREDNISolone (Medrol Dosepak 4 mg oral tablet) 1 Packets Oral DAILY Duration: 6 Days as directed on package labeling Assessment/Plan Patient is a 54-year-old male with coronary artery disease, hypertension, hyperlipidemia, statin intolerance, and history of autoimmune skin condition presenting for follow-up of chronic (more content not included)... Normal [facility] COMPMETAon 04-23-2025 Albumin [Mass/Vol] 4.2 g/dL Normal 3.4-5.0 [facility] Comment on above: Order Comment: Order ed on Fin# [id number] Performed By: #### 1 062478, 576270, 1483331, 656276, 565595, 967329, 0073304, 2359818 #### [facility] [address] [place] [address] Job Trainer: Wily Geronimo MD Albumin/Globulin [Mass ratio] 1.1 {ratio} Normal [facility] Comment on above: Order Comment: Order ed on Fin# [id number] Performed By: #### 1 971877, 287562, 1307502, 773120, 243080, 336990, 9955178, 0282097 #### [facility] [address] [place], [place] [address] Job Trainer: Wily Geronimo MD Alk Phos 63 unit/L Normal 45-117 [facility] Comment on above: Order Comment: Order ed on Fin# [id number] Performed By: #### 1 118239, 551907, 4006517, 054833, 776828, 909696, 8949385, 2923844 #### [facility] [address] [place], [place] [address] Job Trainer: Wily Geronimo MD Bilirubin [Mass/Vol] 0.60 mg/dL Normal 0.30-1.20 [facility] Comment on above: Order Comment: Order ed on Fin# [id number] Result Comment: Use of this assay is not recommended for patients undergoing treatment with eltrombopag due to the potential for falsely elevated results. Performed By: #### 1 532529, 715986, 8107698, 737390, 832609, 513549, 1739982, 1349348 #### [facility] [address] [place] [address] Job Trainer: Wily Geronimo MD Calcium [Mass/Vol] 9.5 mg/dL Normal 8.7-10.4 [facility] Comment on above: Order Comment: Order ed on Fin# [id number] Performed By: #### 1 177830, 872391, 6572085, 340693, 535619, 334646, 8634488, 0365451 #### [facility] [address] [place] [address] Job Trainer: Wily Geronimo MD Chloride [Moles/Vol] 107 mmol/L Normal 98-107 [facility] Comment on above: Order Comment: Order ed on Fin# [id number] Performed By: #### 1 497842, 414596, 1308343, 356338, 582655, 801377, 1015450, 9396175 #### [facility] [address] [place] [address] Job Trainer: Wily Geronimo MD CO2 [Moles/Vol] 23.0 mmol/L Normal 20.0-31.0 [facility] Comment on above: Order Comment: Order ed on Fin# [id number] Performed By: #### 1 930333, 178845, 6090191, 415208, 644359, 675290, 4776170, 6458765 #### [facility] [address] [place] [address] Job Trainer: Wily Geronimo MD Creatinine [Mass/Vol] 1.0 mg/dL Normal 0.6-1.1 [facility] Comment on above: Order Comment: Order ed on Fin# [id number] Performed By: #### 1 390655, 469536, 7119836, 846685, 153045, 146229, 4015026, 3971061 #### [facility] [address] [place] [address] Job Trainer: Wily Geronimo MD GFR AA >60 Normal [facility] Comment on above: Order Comment: Order ed on Fin# [id number] Result Comment: Afri can Moroccan GFR Calc Medical judgement is necessary to interpret GFR. The calculated GFR may not accurately reflect renal status in patients >70 years, women, acutely ill hospitalized patients and patients with acute renal failure or known renal disease. The MDRD GFR formula is valid only for adults greater than 18 years of age. Note: Creatinine clearance (not GFR) should be used for drug dosing. Calculated result performed using the MDRD GFR equation Performed By: #### 1 543292, 067998, 9777524, 386039, 839429, 659241, 8471134, 8735083 #### [facility] [address] [place] [address] Job Trainer: Wily Geronimo MD Globulin (S) [Mass/Vol] 3.8 g/dL Normal [facility] Comment on above: Order Comment: Order ed on Fin# [id number] Performed By: #### 1 319798, 104102, 6202578, 064468, 601958, 212780, 3507543, 4435625 #### [facility] [address] [place] [address] Job Trainer: Wily Geronimo MD Glomerular Filtration Rate >60 Normal [facility] Comment on above: Order Comment: Order ed on Fin# [id number] Result Comment: Non- GFR Calc Medical judgement is necessary to interpret GFR. The calculated GFR may not accurately reflect renal status in patients >70 years, women, acutely ill hospitalized patients and patients with acute renal failure or known renal disease. The MDRD GFR formula is valid only for adults greater than 18 years of age. Note: Creatinine clearance (not GFR) should be used for drug dosing. Calculated result performed using the MDRD GFR equation Performed By: #### 1 710917, 961849, 6540201, 633878, 459001, 014024, 3358811, 3698404 #### [facility] [address] [place] [address] Job Trainer: Wily Geronimo MD Glucose [Mass/Vol] 105 mg/dL Normal 74-106 [facility] Comment on above: Order Comment: Order ed on Fin# [id number] Performed By: #### 1 378119, 088547, 1179807, 911802, 919709, 400764, 5794735, 7313804 #### [facility] [address] [place], [place] [address] Job Trainer: Wily Geronimo MD GOT 28 unit/L Normal 15-37 [facility] Comment on above: Order Comment: Order ed on Fin# [id number] Performed By: #### 1 391426, 507992, 7525276, 509583, 980263, 655679, 7836095, 9595623 #### [facility] [address] [place] [address] Job Trainer: Wily Geronimo MD GPT 37 unit/L Normal 10-49 [facility] Comment on above: Order Comment: Order ed on Fin# [id number] Performed By: #### 1 705806, 135006, 7723544, 806771, 118153, 232090, 2923982, 7843876 #### [facility] [address] [place] [address] Job Trainer: Wily Geronimo MD Osmolality [Osmolality] 282 mosm/kg Normal 275-295 [facility] Comment on above: Order Comment: Order ed on Fin# [id number] Performed By: #### 1 584930, 434978, 3977414, 036884, 895267, 734361, 6695130, 3091911 #### [facility] [address] [place] [address] Job Trainer: Wily Geronimo MD Potassium [Moles/Vol] 3.7 mmol/L Normal 3.5-5.1 [facility] Comment on above: Order Comment: Order ed on Fin# [id number] Result Comment: Spec imen slightly hemolyzed. Results may be affected. Performed By: #### 1 123444, 483958, 3708426, 303590, 519858, 744323, 0033931, 6843591 #### [facility] [address] [place] [address] Job Trainer: Wily Geronimo MD Protein [Mass/Vol] 8.0 g/dL Normal 5.7-8.2 [facility] Comment on above: Order Comment: Order ed on Fin# [id number] Result Comment: Tota l Protein results may be increased in patients receiving dextran as a blood volume business intelligence architect Performed By: #### 1 695407, 180720, 0698128, 972412, 935704, 972667, 3697888, 5642656 #### [facility] [address] [place] [address] Job Trainer: Wily Geronimo MD Sodium [Moles/Vol] 140 mmol/L Normal 135-145 [facility] Comment on above: Order Comment: Order ed on Fin# [id number] Performed By: #### 1 976242, 418095, 4311214, 294841, 905115, 425483, 1584406, 2616969 #### [facility] [address] [place] [address] Job Trainer: Wily Geronimo MD Urea nitrogen [Mass/Vol] 18 mg/dL Normal 9-23 [facility] Comment on above: Order Comment: Order ed on Fin# [id number] Result Comment: - Ve nipuncture should occur prior to N-Acetyl Cysteine (NAC) or Metamizole (Sulpyrine) administration due to the potential for falsely depressed results. - Blood samples from some patients with monoclonal gammopathies may produce falsely elevated results Performed By: #### 1 310862, 816741, 8695700, 477056, 351000, 862177, 4463925, 8222185 #### [facility] [address] [place] [address] Job Trainer: Wily Geronimo MD Urea nitrogen/Creatinine [Mass ratio] 18.0 mg/mg Normal [facility] Comment on above: Order Comment: Order ed on Fin# [id number] Performed By: #### 1 883219, 584021, 5411447, 122797, 546510, 390874, 0555338, 8085541 #### [facility] [address] [place] [address] Job Trainer: Wily Geronimo MD HGB A1Con 04-23-2025 HbA1c (Bld) [Mass fraction] 5.4 % Normal [facility] Comment on above: Order Comment: Order ed on Fin# [id number] Result Comment: Refe rence Range: Diabetic Greater than or equal to 6.5 % Prediabetic 5.7?6.4 % Normal Less than 5.7 % Performed By: #### 1 04789 ####[facility] [address] [place] [address] Medical Director: Wily Geronimo MD I PTHon 04-23-2025 I-PTH 39.0 pg/mL Normal 18.4-80.1 [facility] Comment on above: Order Comment: Order ed on Fin# [id number] Result Comment: - In terpretation of intact PTH values should take into account serum calcium results and the interrelationship between these two elements in various disorders involving PTH and calcium - Measurement of intact PTH is useful in differentiating between hypercalcemia due to hyperparathyroidism and hypercalcemia of malignancy - The assay is not intended as, and should not be relied upon as, a diagnostic indicator of malignancy - In patients with abnormal renal function, interpret the PTH result with caution, and do not make patient management decisions on the PTH result alone Performed By: #### 5 229872 #### [facility] [address] [place] [address] Job Trainer: Wily Geronimo MD LIPID PNLon 04-23-2025 Calculated LDL Cholesterol 121 mg/dL Normal 60-130 [facility] Comment on above: Order Comment: Order ed on Fin# [id number] Result Comment: <100 mg/dl Optimal 100-129 mg/dl Near Optimal 130-159 mg/dl Borderline High 160-189 mg/dl High >=190 mg/dl Very High Calculated result using the Friedewald Equation Performed By: #### 1 567813, 735798, 3483897, 185047, 107521, 220479, 9989533, 6507488 #### [facility] [address] [place] [address] Job Trainer: Wily Geronimo MD Cholesterol [Mass/Vol] 239 mg/dL High 100-200 [facility] Comment on above: Order Comment: Order ed on Fin# [id number] Result Comment: Mari puncture should occur prior to N-Acetyl Cysteine (NAC) or Metamizole (Sulpyrine) administration due to the potential for falsely depressed results. Performed By: #### 1 569221, 346602, 8812779, 085020, 209153, 252028, 8764979, 6849909 #### [facility] [address] [place] [address] Job Trainer: Wily Geronimo MD Cholesterol in HDL [Mass/Vol] 44 mg/dL Normal 40-60 [facility] Comment on above: Order Comment: Order ed on Fin# [id number] Result Comment: Dire ct HDL Venipuncture should occur prior to metamizole (sulpyrine) administration due to the potential for falsely depressed results Performed By: #### 1 031707, 446602, 8056966, 350249, 289569, 339461, 4199835, 2652594 #### [facility] [address] [place] [address] Job Trainer: Wily Geronimo MD Total Chol/HDL Chol Ratio 5.4 Normal [facility] Comment on above: Order Comment: Order ed on Fin# [id number] Performed By: #### 1 501787, 178427, 6854355, 051400, 182445, 057465, 5693753, 1174478 #### [facility] [address] [place] [address] Job Trainer: Wily Geronimo MD Triglyceride [Mass/Vol] 368 mg/dL High 30-150 [facility] Comment on above: Order Comment: Order ed on Fin# [id number] Result Comment: - Ve nipuncture should occur prior to N-Acetyl Cysteine (NAC) or Metamizole (Sulpyrine) administration due to the potential for falsely depressed results - Use of this assay is not recommended for patients being treated with etamsylate because it causes falsely decreased results Performed By: #### 1 373941, 540767, 5457989, 703375, 381827, 329739, 3534608, 3779677 #### [facility] [address] [place] [address] Job Trainer: Wily Geronimo MD MG LEVELon 04-23-2025 Magnesium [Mass/Vol] 2.2 mg/dL Normal 1.6-2.6 [facility] Comment on above: Order Comment: Order ed on Fin# [id number] Performed By: #### 1 368437, 420294, 5039630, 415528, 070982, 214582, 7002207, 6769744 #### [facility] [address] [place] [address] Job Trainer: Wily Geronimo MD PSA SCRon 04-23-2025 Prostatic Specific Ag Screen .4 ng/mL Normal .0-4.0 [facility] Comment on above: Order Comment: Order ed on Fin# [id number] Performed By: #### 1 751293, 696209, 6134967, 680048, 717956, 456679, 3479371, 3988786 #### [facility] [address] [place] [address] Job Trainer: Wily Geronimo MD SED RATEon 04-23-2025 Sed Rate Westergren 9 mm/hr Normal 0-20 [facility] Comment on above: Order Comment: Order ed on Fin# [id number] Performed By: #### 1 934881, 516133, 7256623, 594589, 980836, 572858, 6480434, 7026072 ####[facility] [address] [place] [address] Medical Director: Wily Geronimo MD TESTOS TOTon 04-23-2025 TESTOS TOT 122 ng/dL Low 240-1000 [facility] Comment on above: Order Comment: Order ed on Fin# [id number] Result Comment: -Max ples with biotin concentrations greater than 30 ng/ml will cause erroneus results -Samples with conjugated bilirubin concentrations > 15 mg/dL will cause erroneous results -Samples with unconjugated bilirubin concentrations > 20 mg/dL will cause erroneous results -Falsely elevated results may be seen in patients taking Nandrolone decanoate, 11?-hydroxytestosterone, and 11-ketotestosterone Performed By: #### 1 868370, 346523, 2706966, 488128, 634549, 894169, 9599682, 7036912 #### [facility] [address] [place] [address] Job Trainer: Wily Geronimo MD TSHon 04-23-2025 TSH Qn 1.34 m[IU]/L Normal 0.55-4.78 [facility] Comment on above: Order Comment: Order ed on [facility]# [id number] Result Comment: - Do not use samples that contain fluorescein. Fluorescein levels > 0.24 ?g/mL may decrease results in this assay - Patients undergoing retinal fluorescein angiography can retain amounts of fluorescein in the body for up to 48?72 hours post-treatment. Such samples can produce falsely depressed values when tested with this assay, and should not be tested Reference Intervals (if applicable): First trimester: 0.6-3.4 uIU/mL Second trimester: 0.37-3.6 uIU/mL Third trimester: 0.38-4.04 uIU/mL Reference: [email or web address] (06/2023) Performed By: #### 1 550299, 525284, 6065623, 981880, 499844, 009232, 3597700, 0679695 #### [facility] [address] [place] [address] Job Trainer: Wily Geronimo MD U MALB RANDOMon 04-23-2025 Creatinine, Urine mg/dl 113.6 mg/dL Normal [facility] Comment on above: Order Comment: Order ed on [facility]# [id number] Performed By: #### 1 [id number] ####[facility] [address] [place] [address] Medical Director: Wily Geronimo MD Microalbumin, Urine mg/L <3.0 Normal [facility] Comment on above: Order Comment: Order ed on Fin# [id number] Performed By: #### 1 5707096 ####[facility] [address] [place] [phone] Director: Wily Geronimo MD Microalbumin/Creatini ne Ratio <3 Normal 0-30 [facility] Comment on above: Order Comment: Order ed on Fin# [id number] Performed By: #### 1 [id number] ####[facility] [id number] [place] [address] Medical Director: Wily Geronimo MD UAon 04-23-2025 U MICRO Not Indicated Normal [facility] Comment on above: Performed By: #### 5 [id number] #### [facility] [address] [place] [address] Job Trainer: Wily Geronimo MD Appearance, U Clear Normal Clear [facility] Comment on above: Performed By: #### 5 [id number] #### [facility] [address] [place] [address] Job Trainer: Wily Geronimo MD Bilirubin, U Negative Normal Negative [facility] Comment on above: Result Comment: Bili camarena, U: Initial positive urine bilirubin results are not confirmed. Interfering substances may include elevated urobilinogen. Trace = 0.5-1.0 mg/dL Small = 2.0-4.0 mg/dL Moderate = 6.0-8.0 mg/dL Large = 10 mg/dl and greater Performed By: #### 5 [id number] #### [facility] [address] [place] [address] Job Trainer: Wily Geronimo MD Blood, U Negative Normal Negative [facility] Comment on above: Result Comment: Bloo d, U: Trace = 0.03-0.05 mg/dL Small = 0.06-0.1 mg/dL Moderate = 0.2-0.5 mg/dL Large = 1.0 mg/dL and greater Performed By: #### 5 [id number] #### [facility] [address] [place], [place] [id number] Job Trainer: Wily Geronimo MD Color, U Light-Yellow Normal Yellow [facility] Comment on above: Performed By: #### 5 [id number] #### [facility] [address] [place] [address] Job Trainer: Wily Geronimo MD Glucose Qual, U Negative Normal Negative [facility] Comment on above: Performed By: #### 5 [id number] #### [facility] [address] [place] [address] Job Trainer: Wily Geronimo MD Ketones, U 10 mg/dl Abnormal Negative [facility] Comment on above: Performed By: #### 5 [id number] #### [facility] [address] [place] [address] Job Trainer: Wily Geronimo MD Leukocyte Esterase, U Negative Normal Negative [facility] Comment on above: Result Comment: Leuk ocyte Esterase, U: Trace = 25 Wyatt/uL Small = 75 Wyatt/uL Moderate = 250 Wyatt/uL Large = 500 Wyatt/uL and greater Performed By: #### 5 [id number] #### [facility] [address] [place], [place] [id number] Job Trainer: Wily Geronimo MD Nitrite, U Negative Normal Negative [facility] Comment on above: Performed By: #### 5 [id number] #### [facility] [address] [place], [place] [id number] Job Trainer: Wily Geronimo MD pH, U 5.5 Normal 4.5-8.0 [facility] Comment on above: Performed By: #### 5 [id number] #### [facility] [address] [place] [address] Job Trainer: Wily Geronimo MD Protein, U Negative Normal Negative [facility] Comment on above: Performed By: #### 5 [id number] #### [facility] [address] [place], [place] [id number] Job Trainer: Wily Geronimo MD Specific [place], U 1.023 Normal 1.001-1.035 [facility] Comment on above: Performed By: #### 5 [id number] #### [facility] [address] [place] [address] Job Trainer: Wily Geronimo MD Urobilinogen Qual, U < 2 mg/dl Normal < 2 mg/dl [facility] Comment on above: Result Comment: Urob ilinogen, U: EU/dl and mg/dl are equivalent units. Performed By: #### 5 [id number] #### [facility] [address] [place] [address] Job Trainer: Wily Geronimo MD VIT D 25 LEVELon 04-23-2025 Vit D 25 39 ng/mL Normal [facility] Comment on above: Order Comment: Order ed on Fin# [id number] Result Comment: Less than 20 ng/mL Deficient 20 ? 30 ng/mL Insufficient 30 ? 100 ng/mL Sufficiency Greater than 100 ng/mL Potential Toxicity Performed By: #### 1 [id number], [id number], [id number] #### [facility] [address] [place] [address] Job Trainer: Wily Geronimo MD Patient Letteron 04-16-2025 Patient Letter (Inserted Image. Ruthie ble to display) April 16, 2025 XANDER THURMAN [address] [place] [id number] To Whom It May Concern: The above-named patient has been under our care since 04/08/2025 and may return to work/school on 04/09/2025 with the following restrictions: none/_ If you have further questions regarding this patient?s health status, please call our office. Zuly Gomez MD , Normal [facility] Wound Cultureon 04-12-2025 WC LEFT POSTERIOR SHOUL LOBO AND LEFT ANTERIOR PROXIMAL THIGH #1 Possible skin contamination, further Identification and sensitivity will be performed only by physician's request. Wound Culture Coag Negative Staph Amount Growth Very Rare Normal [facility] Comment on above: Performed By: #### M 100.3000, M100.2000 #### [facility] [address] [place], [place], [address] Gram Stainon 04-11-2025 GS LEFT POSTERIOR SHOUL LOBO AND LEFT ANTERIOR PROXIMAL THIGH Gram Stain No organisms seen No cells seen Normal [facility] Comment on above: Performed By: #### M 100.3000, M100.1999 #### [facility] [address] [place], [address] Gram stainOrdered By: Joy Arellano on 04-10-2025 Microscopic observation Gram stain Nom (Unsp spec) [facility] CT ABD PELVIS W IV CONTRASTo n 04-06-2025 CT ABD PELVIS W IV CONTRAST CT ABDOMEN PELVIS WITH IV CONTRAST CLINICAL STATEMENT: RUQ pain, liver lesion;OTHER REASON. TECHNOLOGIST NOTES: WHAT SYMPTOMS ARE YOU EXPERIENCING?; left quadrant pain, RUQ pain, liver lesion, 100 ml isovue 300 TECHNIQUE: Multiple-row detector helical CT examination of the thorax with IV contrast. Axial, sagittal, and coronal reconstructed images. This exam was performed according to the departmental dose-optimization program which includes automated exposure control, adjustment of the mA and/or kV according to patient size and/or use of iterative reconstruction technique. COMPARISON: December 30, 2020, October 23, 2020 RADIATION DOSE: The total DLP for this examination is estimated at 8-0.63 mGy-cm. FINDINGS: Lung bases: Unremarkable. Hepatobiliary: There is a hypodense 2.7 x 2.4 cm incompletely characterized right hepatic low-density lesion (3:49), increased in size compared with October 23, 2020. There is nonspecific focal hypodensity within hepatic segment IV, adjacent to the ligamentum teres, a characteristic location for focal fat. Findings are not significantly changed when compared with 2020. Subcentimeter left hepatic low density lesion (3:25), not significantly changed. The gallbladder is unremarkable. There is no intrahepatic or extrahepatic biliary ductal dilatation. Spleen: The spleen is unremarkable. Pancreas: The pancreas is unremarkable. Adrenal Glands: The adrenal glands are unremarkable. Genitourinary: There is no evidence of urinary tract calculus or hydronephrosis. Bladder is unremarkable. Reproductive organs are unremarkable. Peritoneum / Retroperitoneum: The peritoneum and retroperitoneum are unremarkable. There is no ascites. Gastrointestinal Tract: There is no bowel wall thickening or obstruction. There are scattered colonic diverticula, most of the descending and sigmoid colon. There is minimal sigmoid colonic wall thickening, with minimal surrounding inflammatory fat stranding, possibly reflecting mild acute diverticulitis.. Appendix is identified and is unremarkable. Lymph Nodes: Lymph nodes are unremarkable. Vasculature: Vasculature. Aorta and iliac vessels are normal in caliber. Bones: No aggressive osseous lesion. There are mild degenerative changes visualized spine. Other Soft Tissues:. Partially imaged left lateral chest wall intramuscular lipoma, unchanged. There is a small fat-containing umbilical hernia. The other soft tissues including abdominopelvic wall are unremarkable. IMPRESSION: 1. Colonic diverticulosis. Minimal sigmoid colonic wall thickening with minimal surrounding inflammatory fat stranding, may reflect mild acute diverticulitis. Correlate clinically. 2. Incompletely characterized 2.7 cm right hepatic low-density lesion, increased in size compared with October 23, 2020. Further evaluation with MR of the abdomen, with and without intravenous contrast material, Electronically signed by: Marii Berg MD 04/06/2025 01:03 AM EDT RP Normal [facility] Comment on above: Order Comment: Order ed on Fin# [id number] Result Comment: Tech nologist: SK Dictated By: MARII BERG MD Signed By: MARII BERG MD Signed Out: 04/06/25 01:03:31 Anion gap in Serum or Plasma Ordered By: Benigno Berry on 03-24-2025 Anion gap [Moles/Vol] 12 mmol/L 5-15 [facility] BUN/creatinine ratioOrdered By: Benigno Berry on 03-24-2025 Urea nitrogen/Creatinine [Mass ratio] 12.6 mg/mg 10- [facility] Basic Metabolic Profile (BMP )on 03-24-2025 BUN/CRE 12.6 RATIO Normal - [facility] Comment on above: Performed By: #### L 500.2500 #### [facility] [address] [place], [address] Calcium [Mass/Vol] 8.7 mg/dL Normal 7.6-11.0 [facility] Comment on above: Performed By: #### L 500.2500 #### [facility] [address] [place], [address] Chloride [Moles/Vol] 105 mmol/L Normal 98-108 [facility] Comment on above: Performed By: #### L 500.2500 #### [facility] [address] [place], [address] CO2 [Moles/Vol] 22.0 mmol/L Normal 21.0-32.0 [facility] Comment on above: Performed By: #### L 500.2500 #### [facility] [address] [place], [address] Creatinine [Mass/Vol] 1.00 mg/dL Normal 0.70-1.20 [facility] Comment on above: Performed By: #### L 500.2500 #### [facility] [address] [place], [address] ECRCL 110.87 ml/min Normal 50-250 [facility] Comment on above: Performed By: #### L 500.2500 #### [facility] [address] [place], [address] GAP 12 Normal 5-15 [facility] Comment on above: Performed By: #### L 500.2500 #### [facility] [address] [place], [address] GFR/1.73 sq M.predicted among non-blacks MDRD (S/P/Bld) [Vol rate/Area] 90 mL/min/{1.73_m2} Normal >60 [facility] Comment on above: Result Comment: mL/m in/1.73m2 CKD-EPI Creatinine Equation (2020) Performed By: #### L 500.2500 #### [facility] [address] [place], [address] Glucose [Mass/Vol] 95 mg/dL Normal 70-99 [facility] Comment on above: Performed By: #### L 500.2500 #### [facility] [address] [place], [address] Potassium [Moles/Vol] 4.3 mmol/L Normal 3.3-5.1 [facility] Comment on above: Performed By: #### L 500.2500 #### [facility] [address] [place], [address] Sodium [Moles/Vol] 139 mmol/L Normal 133-145 [facility] Comment on above: Performed By: #### L 500.2500 #### [facility] [address] [place], [address] Urea nitrogen [Mass/Vol] 13 mg/dL Normal 4-19 [facility] Comment on above: Performed By: #### L 500.2500 #### [facility] [address] [place], [address] Carbon dioxide, total [Moles /volume] in Central venous bloodOrdered By: Benigno Berry on 03-24-2025 CO2 [Moles/Vol] 22.0 mmol/L 21.0-32.0 [facility] Chloride assayOrdered By: Aunp Berry on 03-24-2025 Chloride [Moles/Vol] 105 mmol/L 98-108 [facility] Emergency Department Summary on 03-24-2025 Emergency Department Summary [facility] Medical Records Department [address] [place] [address] Emergency Department Summary 03/24/25 MR#: [id number] Acct: [id number] Name: XANDER THURMAN Rep #: [id number] : 1970 54 From: Benigno Berry DO PCP: ZULY GOMEZ Status:REG ER Location: ED HPI History of Present Illness Chief Complaint: Allergic Reaction Narrative Narrative: Patient is a 54-year-old male with past medical history hypertension who presents to the emergency department with concern for throat swelling. Patient states that he had been stung by horse flies recently states that the first time this happened he called his doctor who gave him oral steroids and azithromycin he states that that went away states that a few days later he got stung in the left elbow was given another dose of steroids. Patient states that just recently got stung on the left cheek and felt like he had swelling of his throat concerning him to have him brought here for further evaluation management. Patient denies any history of this happening. Patient states that he did take a Benadryl prior to arrival. He states that he is feeling better and has no other complaints at this point in time he states that the knot in his throat feels like it is going down. He did note that he is on doxycycline currently for a staph infection on his left leg that is healing well he states [facility] Medical History HTN (hypertension) Home Medications ???Medication ???Instructions ???Recorded ???Last Taken ???Type amlodipine 5 mg tablet 5 mg PO DAILY 03/24/25 Unknown His tory carvedilol 12.5 mg tablet 12.5 mg PO BID 03/24/25 Unknown Hi story doxycycline hyclate 100 mg capsule 100 mg PO BID 03/24/25 Unknown H istory ergocalciferol (vitamin D2) 1,250 1,250 mcg PO QWEEK 03/24/25 Unkno wn History mcg (50,000 unit) capsule evolocumab 140 mg/mL subcutaneous 140 mg subcut 03/24/25 Unknown Hi story syringe (Repatha Syringe) valsartan 320 mg tablet 320 mg PO DAILY 03/24/25 Unknown H istory Allergy/AdvReac Type Severity Reaction Status Date / Time No Known Allergies Allergy Verified 03/24/25 10:50 Social History Smoking Status: Never smoker ROS ROS ED ROS Narrative Constitutional: Denies any fevers, chills, headaches Eyes, ears, nose, throat: Complains of lump in the back of his throat as noted above denies difficulty swallowing denies change in vision double vision blurry vision Cardiovascular: Denies chest pain Respiratory: Denies coughing wheezing shortness of breath Abdomen: Denies abdominal pain nausea vomiting diarrhea : Denies urinary symptoms Neurological: Denies numbness, wheeze, tingling Musculoskeletal: Denies back pain Skin: Denies any rashes or lesions EXAM Physical Exam Narrative Exam Narrative: General: Patient was lying in bed rest comfortably did not appear to be in acute distress Head: Atraumatic, normocephalic Eyes, ears, nose, throat: No intraoral lesions noted. PERRL bilaterally, EOMI by, no conjunctival injection noted, no sublingual swelling noted Neck: Soft, supple, trachea midline, no concern for Arnulfo's angina Cardiovascular: Regular rate and rhythm Respiratory: Clear to auscultation bilaterally Abdomen: Soft, nondistended, no tenderness palpation Extremities: +5/5 strength noted in the bilateral upper and lower extremities, radial pulses +2/4 in the bilateral extremities Neurological: Patient following commands knew that he was at [facility] years 2024 Skin: Warm, dry, intact no rashes no lesions no hives noted Const Vital Signs: 03/24/25 10:46 03/24/25 11:46 03/24/25 12:08 Temperature 97.6 F L Temperature Source Oral Pulse Rate 96 87 89 Respiratory Rate 16 13 18 Blood Pressure 157/114 H 142/91 H 138/90 H Blood Pressure Mean 128 108 106 Pulse Ox 98 97 95 Oxygen Delivery Method Room Air Room Air 03/24/25 13:00 03/24/25 13:30 Temperature Temperature Source Pulse Rate 87 86 Respiratory Rate 11 L 17 Blood Pressure 148/90 H 148/90 H Blood Pressure Mean 109 105 Pulse Ox 99 95 Oxygen Delivery Method MDM MDM MDM Narrative Medical decision making narrative: Patient is a 54-year-old male who presented to the emergency department with a chief complaint of concern for swelling of his throat. On the differential diagnose includes but not limited to devante rgic reaction, anaphylaxis although have low suspicion for this as he was stung yesterday and not today, anxiety. Once workup is obtained reviewed he will be reevaluated. Patient BMP reviewed shows sodium 139, potassium was 4.3, creatinine normal 1. Patient glucose normal at 95. Patient's CT soft tissue neck (more content not included)... Normal [facility] Glomerular filtration rate ( GFR) estimation/1.73 sq m using serum, plasma, or whole bOrdered By: Benigno Berry on 03-24-2025 GFR/1.73 sq M.predicted among non-blacks MDRD (S/P/Bld) [Vol rate/Area] 90 mL/min/{1.73_m2} >60 [facility] Comment on above: mL/min/1.73m2 CKD-EP I Creatinine Equation (2020) Potassium measurement (mass/ volume)Ordered By: Benigno Berry on 03-24-2025 Potassium (Unsp spec) [Mass/Vol] 4.3 mmol/L 3.3-5.1 [facility] Serum creatinine measurement (mass/volume)Ordered By: Benigno Berry on 03-24-2025 Creatinine [Mass/Vol] 1.00 mg/dL 0.70-1.20 [facility] Serum glucose measurement (m ass/volume)Ordered By: Benigno Berry on 03-24-2025 Glucose [Mass/Vol] 95 mg/dL 70-99 [facility] Serum or plasma calcium teofilo urement (mass/volume)Ordered By: Benigno Berry on 03-24-2025 Calcium [Mass/Vol] 8.7 mg/dL 7.6-11.0 [facility] Serum or plasma urea nitroge n measurement (mass/volume)Ordered By: Benigno Berry on 03-24-2025 Urea nitrogen [Mass/Vol] 13 mg/dL 4-19 [facility] Sodium levelOrdered By: Lubna Berry on 03-24-2025 Sodium [Moles/Vol] 139 mmol/L 133-145 [facility] Soft Tissue Neck WITH Contra ston 03-24-2025 Soft Tissue Neck WITH Contrast [facility] Imaging Services [address] [place] [id number] Soft Tissue Neck WITH Contrast MR#: [id number] Acct: [id number] Name: XANDER THURMAN Rep #: [id number] : 1970 M 54 From: Jace morales MD PCP: ZULY GOMEZ Status: REG ER Study: Soft Tissue Neck WITH Contrast Date of Exam: 0 03/24/25 Exam# [id number] Ordering Dr: Benigno Berry DO PROCEDURE: SOFT TISSUE NECK WITH CONTRAST 03/24/2025 REASON FOR EXAM: SWELLING ANTERIOR NECK TECHNIQUE: SOFT TISSUE NECK WITH CONTRAST CONTRAST: Isovue 370 VOLUME: 75 mL One or more dose reduction techniques were used (e.g., Automated exposure control, adjustment of the mA and/or kV according to patient size, use of iterative reconstruction technique). RADIATION DOSE SUMMARY: CTDlvol: 19.68 mGy DLP: 693.43 mGycm COMPARISON: None FINDINGS: Airway: Midline and patent. Salivary glands: Unremarkable. Lymph nodes: No cervical lymphadenopathy. Thyroid: Unremarkable. Vasculature: Carotid arteries and internal jugular veins are unremarkable. Orbits: Unremarkable at visualized levels. Paranasal sinuses and mastoids: Grossly clear at visualized levels. Lung apices: Clear. Upper mediastinum: Visualized mediastinum is unremarkable. Bones: Multilevel degenerative changes of the spine. Other: CT/Soft Tissue Neck WITH Contrast IMPRESSION: No acute abnormality is seen. Reading Location: [place] [address] CC: Dr. Benigno Berry DO; ZULY GOMEZ Escort Service Attendant: Signed Normal [facility] AMB GI Physician Progress No rin 03-05-2025 AMB GI Physician Progress Note XANDER THURMAN :1970 Registration Date:03/05/2025 Chief Complaint New pt upper right quad pain History of Present Illness 54-year-old male who is new to my practice. 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 He has been experiencing right upper quadrant pain. Ultrasound imaging shows enlarged liver lesion. He also has a history of colon polyps and family history of colon cancer. He previously followed with Dr. Godwin Avila. At least for 3 months he has had daily right upper quadrant pain, right under the right rib. It feels like a stitch or muscle cramp. Occasionally with twisting like something is rubbing over something else in the right upper quadrant. There are no associated GI symptoms. He does not experience nausea, vomiting, heartburn. He has lost 10 pounds with diet and increased activity. Eating does not affect the pain. He feels it has improved somewhat since being on Z-Jonnie and Medrol Dosepak after having a deer fly bite. In October of this year he had an ultrasound that showed a liver lesion in the right lobe that had been seen on MRI in 2020. However the liver lesion seems larger compared to previous imaging . There was suggestion of follow-up MRI back in Lab work from September through the [facility] system showed normal LFTs. I reviewed external records including ultrasound imaging from October, MR imaging from 2020, lab work from September of this year and primary doctor office notes. There is a prior history of personal colon polyps. He reports his mid 40s having colonoscopy with Dr. Avila with a few polyps removed. He had repeat examination a few years ago that was a normal exam. He believes he is due for follow-up in 2 years. Denies change in bowel pattern, constipation, diarrhea or blood in the stool. Family history of paternal grandfather, paternal great uncles, paternal aunt with colon cancer. His father had stomach cancer. Physical Exam Vitals & Measurements Systolic Blood Pressure: 130 mmHg High (03/05/25 09:26:00) Diastolic Blood Pressure: 93 mmHg High (03/05/25::00) Peripheral Pulse Rate: 79 bpm (03/05/25::00) Mean Arterial Pressure: 105 mmHg (03/05/25::00) Height/Length Measured: 180 cm (03/05/25::00) Weight Measured: 115 kg (03/05/25::00) Body Mass Index Measured: 35.49 kg/m2 (03/05/25::) Weight Measured - lbs2: 254 lb (03/05/25::00) Height/Length Measured - in2: 71 in (03/05/25::00) Body Mass Index Measured English2: 35.42 kg/m2 (03/05/25::) BSA: 2.4 m2 (03/05/25::) Ht/Wt Measurement Refused by Patient?2: No (03/05/25::) Depression Screening Scores Initial Depression Screen Score: 0 (03/05/25::) Fall Risk Assessment Is the patient ambulatory (mobile): Yes (03/05/25::) Have you had a fall within the past: No (03/05/25:) Have you had 2 or more falls in the past: No (03/05/25::) VS reviewed as documented above General: No apparent distress, alert and conversant Skin: No rash or jaundice HEENT: No oral lesions, tongue midline LUNGS: CTA B CV: RRR ABD: Soft, tender to deep palpation in right upper quadrant on lower rib area, negative Skinner's, nondistended, normoactive bowel sounds Neuro: AAO x 3, no focal weakness or numbness Medication Reconciliation What How Much When Instructions Unchanged amLODIPine (amLODIPine 5 mg oral tablet) 1 Tabs Oral DAILY Unchanged aspirin (aspirin 81 mg oral delayed release tablet) 1 Tabs Oral DAILY WITH BREAKFAST Unchanged carvedilol (carvedilol 12.5 mg oral tablet) 1 Tabs Oral TWICE A DAY Unchanged ergocalciferol = Vitamin D (ergocalciferol 1.25 mg (50,000 intl units) oral capsule = Vitamine D) 1 Capsules Oral MONDAY Unchanged evolocumab (Repatha Prefilled Syringe 140 mg/ mL subcutaneous solution) 140 Milligram Subcutaneous EVERY FOURTEEN DAYS rotate injection sites Unchanged fluticasone nasal (Flonase 50 mcg/ inh nasal spray) 2 Sprays Nasal DAILY Unchanged sildenafil = Revatio (sildenafil 50 mg oral tablet) 1 Tabs Oral DAILY as needed for as needed for erectile dysfunction Unchanged valsartan (valsartan 320 mg oral tablet) 1 Tabs Oral DAILY Assessment/Plan This Visit Diagnosis 1. Right upper quadrant pain R10.11 Has had persistent right upper quadrant pain for a number of months with features suggestive of musculoskeletal etiology. Ultrasound showed unremarkable gallbladder, however he does have a liver lesion that has grown slightly in size from prior imaging. Recommend CT scan with oral and IV contrast to further evaluate liver lesion and also look for any alternative etiology. Ordered: AMB Office/Outpt New Pt Mod MDM / 45 min [id number], 03/05/2025 09:43:00 EDT, Right upper quadrant pain / Liver lesion / Family history of colon cancer BUN, ROUTINE, 03/05/2025, Order for future visit-Diagnosis required, Dx: Right upper quadrant pain / Liver lesion / Family history (more content not included)... Normal [facility] BUNon 03-05-2025 Urea nitrogen [Mass/Vol] 15 mg/dL Normal 9-23 [facility] Comment on above: Order Comment: Order ed on Fin# [id number] Result Comment: - Ve nipuncture should occur prior to N-Acetyl Cysteine (NAC) or Metamizole (Sulpyrine) administration due to the potential for falsely depressed results. - Blood samples from some patients with monoclonal gammopathies may produce falsely elevated results Performed By: #### 1 [id number], 101156, [id number], [id number], 491492, 248141, [id number], [id number] #### [facility] [address] [place] [address] Job Trainer: Wily Geronimo MD CREATomitchell 03-05-2025 Creatinine [Mass/Vol] 1.0 mg/dL Normal 0.6-1.1 [facility] Comment on above: Order Comment: Order ed on Fin# [id number] Performed By: #### 1 [id number], 076522, [id number], 929173, 745405, 532361, [id number], [id number] #### [facility] [address] [place] [address] Job Trainer: Wily Geronimo MD GFR AA >60 Normal [facility] Comment on above: Order Comment: Order ed on Fin# [id number] Result Comment: Afri can Moroccan GFR Calc Medical judgement is necessary to interpret GFR. The calculated GFR may not accurately reflect renal status in patients >70 years, women, acutely ill hospitalized patients and patients with acute renal failure or known renal disease. The MDRD GFR formula is valid only for adults greater than 18 years of age. Note: Creatinine clearance (not GFR) should be used for drug dosing. Calculated result performed using the MDRD GFR equation Performed By: #### 1 [id number], 547334, 5395309, 005327, 565475, 449422, 7337539, [id number] #### [facility] [address] [place] [address] Job Trainer: Wily Geronimo MD Glomerular Filtration Rate >60 Normal [facility] Comment on above: Order Comment: Order ed on Fin# [id number] Result Comment: Non- GFR Calc Medical judgement is necessary to interpret GFR. The calculated GFR may not accurately reflect renal status in patients >70 years, women, acutely ill hospitalized patients and patients with acute renal failure or known renal disease. The MDRD GFR formula is valid only for adults greater than 18 years of age. Note: Creatinine clearance (not GFR) should be used for drug dosing. Calculated result performed using the MDRD GFR equation Performed By: #### 1 [id number], 640238, 4004061, 965075, 761590, 778040, [id number], [id number] #### [facility] [address] [place] [address] Job Trainer: Wily Geronimo MD Wound Cultureon 02-28-2025 WC UPPER RIGHT CUTANEOU S LIP #1, 2 Clinical correlation necessary, Possible skin contamination. Wound Culture #4 Susceptibility not normally performed on this organism. Wound Culture Wound Culture Wound Culture Wound Culture Staphylococcus pseudintermediu Amount Growth 2+ Staphylococcus epidermidis Staphylococcus epidermidis ECOL Amount Growth Very Rare Escherichia coli Amount Growth Very Rare Cutibacterium acnes Enterococcus faecalis Staphylococcus pseudintermediu: REACTION Doxycycline Islt АННА <=0.5 S Cutibacterium acnes Clindamycin.induced Susc Islt Erythromycin Islt АННА <=0.25 S Gentamicin Islt АННА <=0.5 Linezolid Islt АННА 1 S Oxacillin Susc Islt <=0.25 S Tetracycline Islt АННА <=1 S TMP SMX Islt АННА <=10 S Vancomycin Islt АННА <=0.5 S Staphylococcus epidermidis: REACTION cefOXitin Susc Islt POS Doxycycline Islt АННА 1 S Clindamycin Islt АННА >=4 R Clindamycin.induced Susc Islt NEG Erythromycin Islt АННА >=8 Gentamicin Islt АННА <=0.5 S Linezolid Islt АННА 2 S Oxacillin Susc Islt >=4 R Tetracycline Islt АННА 2 S TMP SMX Islt АННА 160 R Vancomycin Islt АННА 1 S Escherichia coli: REACTION Ampicillin Islt АННА <=2 S Ampicillin+Sulbac Islt АННА <=2 S Cefepime Islt АННА <=0.12 S cefTRIAXone Islt АННА <=0.25 S Ciprofloxacin Islt АННА <=0.06 B-Lactamase Extended Susc Islt NEG Gentamicin Islt АННА <=1 S levoFLOXacin Islt АННА <=0.12 S Meropenem Islt АННА <=0.25 S Pip+Tazo Islt АННА <=4 S TMP SMX Islt АННА <=20 S Enterococcus faecalis: REACTION Ampicillin Islt АННА <=2 S Gentamicin Synergy Susc Islt SYN-S S Linezolid Islt АННА 2 S Streptomycin High Pot Susc Islt SYN-S S Vancomycin Islt АННА 2 Normal [facility] Comment on above: Performed By: #### M 100.2000, M100.3000 #### [facility] [address] [place], [place], [address] Gram Stainon 02-21-2025 GS UPPER RIGHT CUTANEOU S LIP Gram Stain 2+ Gram positive cocci Normal [facility] Comment on above: Performed By: #### M 100.2000, M100.3000 #### [facility] [address] [place], [address] Gram stainOrdered By: Bobo Maria on 02-20-2025 Microscopic observation Gram stain Nom (Unsp spec) [facility] Routine wound cultureOrdered By: Bobo Maria on 02-20-2025 Microbial culture, routine Staphylococcus pseudintermediu Abnormal [facility] Microbial culture, routine Staphylococcus epidermidis Abnormal [facility] AMB ENDOCRN Physician Progre ss Noteon 12-31-2024 AMB ENDOCRN Physician Progress Note CUCAXANDER :1970 [facility]:[id number] Registration Date:12/31/2024 Chief Complaint: follow up for parathyroid/calcium History of Present Illness: Initial Diagnosis 2021 Polyuria Neg Polydipsia Neg Renal Insufficiency Denies Nephrolithiasis neg Nausea/Vomiting Neg Anorexia neg Constipation neg Pancreatitis history Neg Peptic Ulcer disease history Neg Muscle weakness Neg Bone pain Neg Fracture history Neg [place] use Neg Thiazide diuretic use Yes Apparently in [address] Pace - was told has pituitary microadenoma He had a MRI repeated 10/11 - Near complete resolution of previously seen 5 mm hypoenhancing lesion in the pituitary gland, now barely perceptible In past he also was on testosterone shots - He stopped when he had CAD and had stents placed 5-6 yrs ago He has statin intolerance - sees Dr Kent - now takes repatha He underwent parathyroid exploration and removal of right upper parathyroid adenoma by Dr. Jenkins 02/20/24 His insurance declined to cover GLP1 meds for wgt loss He has made changes in his diet and has stopped ETOH - He has lost weight and is pleased with that He would like to pursue compounded semaglutide - have referred him to wgt loss clinic - Anamika Montero [employer] He also is provided info for Dr Hubbard - to get screened for [place] He generally feels well and offers no acute complaints today His testosterone level was low but he would like to continue to work on wgt loss efforts and see if he can increase that Physical Exam: Vitals & Measurements Systolic Blood Pressure: 138 mmHg High (12/31/24 10:14:00) Diastolic Blood Pressure: 90 mmHg High (12/31/24 10:14:00) Peripheral Pulse Rate: 80 bpm (12/31/24 10:14:00) Mean Arterial Pressure: 106 mmHg (12/31/24 10:14:00) BP Site2: Left arm (12/31/24 10:14:00) Height/Length Measured: 180 cm (12/31/24 10:14:00) Weight Measured: 120 kg (12/31/24 10:14:00) Body Mass Index Measured: 37.04 kg/m2 (12/31/24 10:14:00) Weight Measured - lbs2: 264 lb (12/31/24 10:14:00) Height/Length Measured - in2: 70.87 in (12/31/24 10:14:00) Body Mass Index Measured English2: 36.95 kg/m2 (12/31/24 10:14:00) BSA: 2.44 m2 (12/31/24 10:14:00) Ht/Wt Measurement Refused by Patient?2: No (12/31/24 10:14:00) Depression Screening Scores: Initial Depression Screen Score: 0 (12/31/24 10:14:00) Fall Risk Assessment: Is the patient ambulatory (mobile): Yes (12/31/24 10:14:00) Have you had a fall within the past: No (12/31/24 10:14:00) Have you had 2 or more falls in the past: No (12/31/24 10:14:00) Comfortable in no acute distress Eyes normal conjunctiva visual babcock normal Neck no nodule or lymph node palpable Heart regular Normal gait Diagnostic Results: Labs done by PCP reviewed in [facility] Glucose and hemoglobin A1c mildly elevated Lipids are elevated Total testosterone was low ( not LCMS assay) Medication Reconciliation: What How Much When Instructions Unchanged amLODIPine (amLODIPine 5 mg oral tablet) 1 Tabs Oral DAILY Contact prescribing physician if questions or concerns Unchanged aspirin (aspirin 81 mg oral delayed release tablet) 1 Tabs Oral DAILY WITH BREAKFAST Contact prescribing physician if questions or concerns Unchanged carvedilol (carvedilol 12.5 mg oral tablet) 1 Tabs Oral TWICE A DAY Contact prescribing physician if questions or concerns Unchanged ergocalciferol = Vitamin D (ergocalciferol 1.25 mg (50,000 intl units) oral capsule = Vitamine D) 1 Capsules Oral MONDAY Contact prescribing physician if questions or concerns Unchanged evolocumab (Repatha Prefilled Syringe 140 mg/ mL subcutaneous solution) 140 Milligram Subcutaneous EVERY FOURTEEN DAYS rotate injection sites Contact prescribing physician if questions or concerns Unchanged fluticasone nasal (Flonase 50 mcg/ inh nasal spray) 2 Sprays Nasal DAILY Contact prescribing physician if questions or concerns Unchanged sildenafil = Revatio (sildenafil 50 mg oral tablet) 1 Tabs Oral DAILY as needed for as needed for erectile dysfunction Contact prescribing physician if questions or concerns Unchanged valsartan (valsartan 320 mg oral tablet) 1 Tabs Oral DAILY Contact prescribing physician if questions or concerns Assessment/Plan: This Visit Diagnosis 1. 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 07/02/2025 +/- 28 days, Order for future visit-Diagnosis required, Dx: Low testosterone / Hyperglycemia / Obesity IRON GROUP, ROUTINE, *Est. 07/02/2025 +/- 28 days, Order for future visit-Diagnosis required, Dx: Low testosterone / Hyperglycemia / Obesity LH, ROUTINE, *Est. 07/02/2025 +/- 28 days, Order for future visit-Diagnosis required, Dx: Lo (more content not included)... Normal [facility] Medicine Physician Kalia Bui 12-11-2024 [facility] Medicine Physician Progress Note CUCA XANDER LEIVAMOND :1970 Registration Date:12/11/2024 Chief Complaint: Follow up HTN and CHOL History of Present Illness: Disclaimer: The content of this note was generated by an artificial intelligence (AI) language model version 25.01.0.0 The patient is a 54-year-old male with a history of hypertension, CAD, pituitary microadenoma, and vitamin D deficiency, presenting for a 4-month follow-up visit. Hypertension The patient reports that his blood pressure has been elevated recently. He acknowledges that he consumed bourbon and wine last night, which he believes contributed to the increase. Additionally, he experiences white coat syndrome, which causes his blood pressure to rise during medical visits. Despite these fluctuations, his cholesterol levels have improved since the last blood work in September. He continues to monitor his diet and exercise regularly. Abdominal Pain The patient continues to experience persistent abdominal pain. He previously underwent an ultrasound, which did not reveal any abnormalities. Despite this, the pain has not subsided, leading him to believe it is not related to his liver. He recalls having an MRI in the past that showed some kind of growth in his urine. The patient is scheduled for a CAT scan to further investigate the cause of his abdominal pain. He is currently unsure of his GI specialist but will follow up with the recommended specialist. Vitamin D Deficiency The patient has been managing his vitamin D deficiency with supplementation. His parathyroid levels were checked previously and appeared normal. He will continue with his current vitamin D regimen and will have his levels rechecked during his next blood work. PTSD The patient is exploring alternative therapies for his PTSD, including Ibogaine therapy, which he learned about through a podcast. He is considering traveling to [place] for this treatment, which is known to have a significant cost. He has reached out to the organization '[employer]' for more information and support. Review of Systems: Cardiovascular: Positive for blood pressure up. Gastrointestinal: Positive for belly pain. Physical Exam: Vitals & Measurements Systolic Blood Pressure: 140 mmHg High (12/11/24:) Diastolic Blood Pressure: 100 mmHg High (12/11/24::) Respiratory Rate: 14 br/min (12/11/24) SpO2: 99 % (12/11/24) Peripheral Pulse Rate: 73 bpm (12/11/24) Mean Arterial Pressure: 113 mmHg (12/11/24) BP Site2: Left arm (12/11/24) Height/Length Measured: 180.34 cm (12/11/24:) Weight Measured: 124 kg (12/11/24:) Body Mass Index Measured: 38.13 kg/m2 (12/11/24) Weight Measured - lbs2: 274 lb (12/11/24) Height/Length Measured - in2: 71 in (12/11/24:) Body Mass Index Measured English2: 38.21 kg/m2 (12/11/24:) BSA: 2.49 m2 (12/11/24:) Ht/Wt Measurement Refused by Patient?2: No (12/11/24:) Depression Screening Scores: Initial Depression Screen Score: 0 (12/11/24::) Fall Risk Assessment: Is the patient ambulatory (mobile): Yes (12/11/24::) Have you had a fall within the past: No (12/11/24::) Have you had 2 or more falls in the past: No (12/11/24::00) Medication Reconciliation: What How Much When Instructions Unchanged amLODIPine (amLODIPine 5 mg oral tablet) 1 Tabs Oral DAILY Unchanged aspirin (aspirin 81 mg oral delayed release tablet) 1 Tabs Oral DAILY WITH BREAKFAST Unchanged carvedilol (carvedilol 12.5 mg oral tablet) 1 Tabs Oral TWICE A DAY Unchanged ergocalciferol = Vitamin D (ergocalciferol 1.25 mg (50,000 intl units) oral capsule = Vitamine D) 1 Capsules Oral MONDAY Unchanged evolocumab (Repatha Prefilled Syringe 140 mg/ mL subcutaneous solution) 140 Milligram Subcutaneous EVERY FOURTEEN DAYS rotate injection sites Unchanged fluticasone nasal (Flonase 50 mcg/ inh nasal spray) 2 Sprays Nasal DAILY Unchanged pantoprazole (Protonix 40 mg oral delayed release tablet) 1 Tabs Oral DAILY Unchanged sildenafil = Revatio (sildenafil 50 mg oral tablet) 1 Tabs Oral DAILY as needed for as needed for erectile dysfunction Unchanged valsartan (valsartan 320 mg oral tablet) 1 Tabs Oral DAILY Assessment/Plan: Patient is a 54-year-old male with a history of mild HTN, vitamin D deficiency, and right upper quadrant pain presenting today for follow-up and management of these conditions. This Visit Diagnosis 1. Pituitary microadenoma D35.2 Ordered: AMB Office/Outpt Est Pt Mod MDM / 30 min [id number], 12/11/2024 11:26:00 EDT, Pituitary microadenoma / Vitamin D deficiency / Statin intolerance / Mild HTN / CAD (coronary artery disease) AMB Visit complexity: ongoing, serious, complex cond [id number], 12/11/2024 11:26:00 EDT, Pituitary microadenoma / Vitamin D deficiency / Statin intolerance / Mild HTN / CAD (coronary artery disease) CT ABD PEL (more content not included)... Normal [facility] Phone Msgon 11-13-2024 Phone Msg - From: Jacki Robin To: JASON PEREIRA, ZULY YARBROUGH; Sent: 11/13/2024 12:00:22 EST Subject: Med Management Caller Name: XANDER THURMAN; Caller Number: , B [phone] On hold pending signature Order:amLODIPine (amLODIPine 5 mg oral tablet) 1 tabs ORAL DAILY Qty: 90 tabs Refills: 1 Substitutions Allowed Route To Pharmacy - [facility]/pharmacy #[id number] FAX REQUEST From: ZULY GOMEZ MD Sent: 11/13/2024 12:55:12 EST Subject: RE:Med Management Caller Name: XANDER THURMAN; Caller Number: H , B [phone] Approved Order:amLODIPine (amLODIPine 5 mg oral tablet) 1 tabs ORAL DAILY Qty: 90 tabs Refills: 1 Substitutions Allowed Route To Pharmacy - [facility]/pharmacy #[id number] Signed by ZULY GOMEZ MD 11/13/2024 12:55:00 EST Normal [facility] Patient Letteron 11-07-2024 Patient Letter (Inserted Image. Ruthie ble to display) November 07, 2024 XANDER THURMAN [address] [id number] To Whom It May Concern: The above-named patient has been under our care since 10/31/24 and may return to work on 11/02/24 with the following restrictions: none. If you have further questions regarding this patient?s health status, please call our office. Sincerely, Zuly Gomez M.D. , [facility] Phone Msgon 11-07-2024 Phone Msg - From: Dilcia Nunes To: ZULY GOMEZ MD; Sent: 11/04/2024 10:57:36 EST Caller Name: CUCA XANDER THAIS; Caller Number: H , B [phone] Patient needs work excuse for 10/31/24 and returned on 11/02/24. 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 From: SHARITA LO CNP To: Jacki Robin; Sent: 11/06/2024 10:21:22 EST Subject: RE: Caller Name: XANDER THURMAN; Caller Number: H , B [phone] That's fine. From: Jacki Robin To: SHARITA LO CNP; Cc: Dilcia Nunes; Sent: 11/06/2024 15:39:14 EST Subject: FW: Caller Name: XANDER THURMAN; Caller Number: H , B [phone] pt had to r/s due to tf not being back, so he did not have the appt today. Am I still okay to write? From: SHARITA LO CNP To: Princess Su MA; Sent: 11/06/2024 16:10:27 EST Subject: RE: Caller Name: XANDER THURMAN; Caller Number: H , B [phone] yes, that's fine letter up front for picker and sorter load and unload Normal [facility] Phone Msgon 11-05-2024 Phone Msg Entered by Princess Su MA on November 05, 2024 17:17:26 EST Patient aware to start the Protonix and keep follow up From: XANDER THURMAN To: Princess Su MA Sent: 10/24/2024 04:15 p.m. EST Subject: RE: FW: Thank you for your message. It has been successfully sent to the appropriate care team. ok so now what? Addendum by Princess Su MA on October 24, 2024 13:18:01 EST From: Princess Su MA To: CUCA XANDER THAIS Sent: 10/24/2024 13:18:01 EST Subject: FW: From: SHARITA LO CNP To: Princess Su MA; Sent: 10/24/2024 10:23:34 EST Caller Name: XANDER THURMAN; Caller Number: H , B [phone] Please let Xander know that his biliary U/S was normal. Results: Date Result Type Result Name 10/24/2024 10:10 Radiology BILIARY ECHO Normal [facility] Phone Msgon 11-04-2024 Phone Msg - From: Dilcia Nunes To: ZULY GOMEZ MD; Sent: 11/04/2024 10:57:36 EST Caller Name: XANDER THURMAN; Caller Number: H , B [phone] Patient needs work excuse for 10/31/24 and returned on 11/02/24. 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 Normal [facility] AMYon 10-24-2024 Amylase [Catalytic activity/Vol] 98 U/L Normal 30-118 [facility] Comment on above: Order Comment: Order ed on Fin# [id number] Performed By: #### 1 [id number], [id number] ####[facility] [id number] [place] [address] Medical Director: Wily Geronimo MD LIPon 10-24-2024 Lipase [Catalytic activity/Vol] 47 U/L Normal 12-53 [facility] Comment on above: Order Comment: Order ed on Fin# [id number] Performed By: #### 1 [id number], [id number] ####[facility] [id number] [place] [id number] Medical Director: Wily Geronimo MD Phone Msgon 10-24-2024 Phone Msg - From: SHARITA LO CNP To: Princess Su MA; Sent: 10/24/2024 10:23:34 EST Caller Name: XANDER THURMAN; Caller Number: H , B [phone] Please let Xander know that his biliary U/S was normal. Results: Date Result Type Result Name 10/24/2024 10:10 Radiology BILIARY ECHO From: Princess Su MA To: XANDER THURMAN THAIS Sent: 10/24/2024 13:18:01 EST Subject: FW: Sent message and recommendations to patients portal. Normal [facility] Phone Msg - From: SHARITA LO CNP To: Princess Su MA; XANDER THURMAN Sent: 10/24/2024 11:57:53 EST labs were normal Results: Date Result Name Value Ref Range 10/24/2024 8:43 Amylase 98 unit/L (30 - 118) 10/24/2024 8:43 Lipase 47 unit/L (12 - 53) Normal [facility] US BILIARY ECHOon 10-24-2024 US BILIARY ECHO Ultrasound of the [facility] upper quadrant CLINICAL HISTORY:RIGHT UPPER QUADRANT PAIN, COMPARISON: CT 10/23/2020 and MRI 12/30/2020 FINDINGS: This report is based on interpretation of permanently stored ultrasound images. The gallbladder is moderately distended and sonographically normal with no calculus, wall thickening or pericholecystic edema. Negative sonographic Skinner sign.. There is no intra or extrahepatic bile duct dilatation. The common duct is 4 mm at the ny hepatis. The visualized liver is 19 cm in vertical dimension. There is coarsening and diffusely increased echogenicity with decreased depth penetration. There are areas of focal fatty sparing adjacent to the gallbladder. In the right lobe there is a solid hypoechoic lesion without significant blood flow. This is 2.7 x 2.4 x 2.1 cm which is larger than measurement of 1.5 cm on the comparison MRI. No other liver lesion is seen. The pancreas as visualized shows no focal lesion or mass. Some portions are obscured by bowel gas. No ascites is seen in the RIGHT upper quadrant. Limited survey images of the right kidney show normal cortical thickness and echogenicity with no pelvocaliectasis. IMPRESSION: No acute abnormality. Steatosis or other diffuse hepatocellular disease. There is a solid right lobe liver lesion that is also seen on the previous MRI which characterize this as a benign lesion/hemangioma. Its size however is significantly larger than the measurement of 1.5 cm on the MRI. Some of this can be artifactual differences in size/measurement between different modalities. Evaluate further as clinically warranted. Electronically signed by: Eileen Austin MD 10/24/2024 10:07 AM EST [employer] Normal [facility] Comment on above: Order Comment: Order ed on Fin# [id number] Result Comment: Tech nologist: Dictated By: EILEEN AUSTIN MD Signed By: EILEEN AUSTIN MD Signed Out: 10/24/24 10:07:58 [facility] Medicine Physician Kalia Bui 10-22-2024 [facility] Medicine Physician Progress Note ZOEXANDER Marti :1970 Registration Date:10/22/2024 Chief Complaint Patient presents with RQP x 4 weeks. History of Present Illness Xander is here today with complaints of RUQ pain Onset 4 weeks Reports a dull ache that is constant Not associated with any other GI symptoms Physical Exam Vitals & Measurements Height/Length Measured: 180 cm (10/22/24 14:03:00) Weight Measured: 126 kg (10/22/24 14:03:00) Body Mass Index Measured: 38.89 kg/m2 (10/22/24 14:03:00) Weight Measured - lbs2: 277.2 lb (10/22/24 14:03:00) Height/Length Measured - in2: 71 in (10/22/24 14:03:00) Body Mass Index Measured English2: 38.66 kg/m2 (10/22/24 14:03:00) BSA: 2.51 m2 (10/22/24 14:03:00) Ht/Wt Measurement Refused by Patient?2: No (10/22/24 14:03:00) Depression Screening Scores Initial Depression Screen Score: 0 (10/22/24 14:03:00) Fall Risk Assessment Is the patient ambulatory (mobile): Yes (10/22/24 14:03:00) Have you had a fall within the past: No (10/22/24 14:03:00) Have you had 2 or more falls in the past: No (10/22/24 14:03:00) GENERAL: Vital signs reviewed. Well-nourished, well developed, no apparent distress. Heart: Regular rate and rhythm. Lungs: Clear to auscultation. Respirations are even and non-labored. ABD: Soft, round. BS active all 4 quadrants. No pain or tenderness with palpation to any quadrant, no rebound tenderness, no guarding or rigidity. Medication Reconciliation What How Much When Instructions New pantoprazole (Protonix 40 mg oral delayed release tablet) 1 Tabs Oral DAILY Pickup at [facility]/pharmacy #[id number] Unchanged amLODIPine (amLODIPine 5 mg oral tablet) 1 Tabs Oral DAILY Contact prescribing physician if questions or concerns Unchanged aspirin (aspirin 81 mg oral delayed release tablet) 1 Tabs Oral DAILY WITH BREAKFAST Contact prescribing physician if questions or concerns Unchanged carvedilol (carvedilol 12.5 mg oral tablet) 1 Tabs Oral TWICE A DAY Contact prescribing physician if questions or concerns Unchanged ergocalciferol = Vitamin D (ergocalciferol 1.25 mg (50,000 intl units) oral capsule = Vitamine D) 1 Capsules Oral MONDAY Contact prescribing physician if questions or concerns Unchanged evolocumab (Repatha Prefilled Syringe 140 mg/ mL subcutaneous solution) 140 Milligram Subcutaneous EVERY FOURTEEN DAYS rotate injection sites Contact prescribing physician if questions or concerns Unchanged fluticasone nasal (Flonase 50 mcg/ inh nasal spray) 2 Sprays Nasal DAILY Contact prescribing physician if questions or concerns Unchanged sildenafil = Revatio (sildenafil 50 mg oral tablet) 1 Tabs Oral DAILY as needed for as needed for erectile dysfunction Contact prescribing physician if questions or concerns Unchanged valsartan (valsartan 320 mg oral tablet) 1 Tabs Oral DAILY Contact prescribing physician if questions or concerns Pharmacy Information [id number]: [address], [place] [id number] [phone] Assessment/Plan This Visit Diagnosis 1. Right upper quadrant pain R10.11 Suspicious for gallbladder involvement Will also rule out the possibility of pancreas involvement Labs ordered, will call with results Biliary ultrasound ordered, patient will call to schedule Slight possibility if there is a gastritis, will trial pantoprazole for the next month Ordered: AMB Follow - Up Appt Amb, 10/22/2024 14:35:00 EST, 4 weeks AMB Office/Outpt Est Pt Mod MDM / 30 min [id number], 10/22/2024 14:35:00 EST, Right upper quadrant pain KALYN, ROUTINE, 10/22/2024, Order for future visit-Diagnosis required, Dx: Right upper quadrant pain LIP, ROUTINE, 10/22/2024, Order for future visit-Diagnosis required, Dx: Right upper quadrant pain US BILIARY ECHO, 10/22/2024, HUMBERTO, RIGHT UPPER QUADRANT PAIN, Cart, Isolation Precautions: NONE, Right upper quadrant pain Orders: pantoprazole(Protonix 40 mg oral delayed release tablet), 40 mg= 1 tabs, ORAL, DAILY Problem List/Past Medical History Ongoing Abnormal thyroid blood test Arm pain, right CAD (coronary artery disease) Eczema H/O hyperparathyroidism High cholesterol HTN (hypertension) Hypercalcemia Hyperlipidemia Hyperparathyroidism Impacted cerumen of both ears Mild HTN Obesity Pituitary microadenoma Rhinitis Right upper quadrant pain Statin intolerance Vitamin D deficiency Historical OM (otitis media) Pain, abdominal Procedure/Surgical History Right Upper Parathyroid Adenoma Removal: 02/20/24 LAMINECTOMY L5-S1: 01/02/06 Left inguinal hernia repair: 1981 Colonoscopy Excision benign lesion buttock Septoplasty LYPOMA ON LEG Medications amLODIPine(amLODIPine 5 mg oral tablet), 5 mg= 1 tabs, ORAL, DAILY, 3 refills aspirin(aspirin 81 mg oral delayed release tablet), 81 mg= 1 tabs, ORAL, DAILY WITH BREAKFAST carvedilol(carvedilol 12.5 mg oral tablet), 12.5 mg= 1 tabs, ORAL, BID, 3 refills ergocalciferol = Vitamin D(ergocalciferol 1. (more content not included)... Normal [facility] Comprehensive Intake - Texto n 10-22-2024 Comprehensive Intake - Text Comprehensive Intake Entered On: 10/22/2024 14:04 EST Performed On: 10/22/2024 14:03 EST by Zee Hackett MA Summary Chief Complaint : Patient presents with RQP x 4 weeks. Advance Directive : No Bladder Control Issues? : No Urine Leakage? : No Presence or absence of urinary incontinence assessed : Yes CPT-II Medication list doc'd in medical record : Yes Influenza immunization administered or previously received : Yes Pneumococcal vaccine administered or previously received : No Zee Hackett MA - 10/22/2024 14:03 EST Measurements Ht/Wt Measurement Refused by Patient? : No Weight Measured : 126 kg(Converted to: 277 lb 13 oz, 277.782 lb) Height/Length Measured : 180 cm(Converted to: 5 ft 11 in, 70.87 in) Body Mass Index Measured : 38.89 kg/m2 Body Mass Index documented : Yes Weight Measured - lbs : 277.2 lb(Converted to: 277 lb 3 oz, 126 kg) Height/Length Measured - in : 71 in(Converted to: 5 ft 11 in, 180 cm) Body Mass Index Measured Cuban : 38.66 kg/m2 BSA Cuban : 2.51 m2 Zee Hackett MA 10/22/2024 14:03 EST Vitals Require BP : No Pain Present : No actual or suspected pain Pain : 0 Pain severity quantified : No pain present Primary Pain Comments : pain is intermittent; dull ache. Zee Hackett MA 10/22/2024 14:03 EST Infection Screening Travel outside [place] within past 21 days : No Positive COVID test in the last 10 days? : No Exposure to and/or close contact with a person who has a laboratory-confirmed COVID test within the last 48 hours. : No Coronavirus New Symptoms w/o Cause : No Zee Hackett MA 10/22/2024 14:03 EST Depression Screening Is patient currently : None of the Below Feeling Down, Depressed, Hopeless : Not at all Little Interest - Pleasure in Activities : Not at all Initial Depression Screen Score : 0 Depression Screening Score 0 : No Zee Hackett MA 10/22/2024 14:03 EST Falls Risk Assessment Is the patient ambulatory (mobile) : Yes Have you had 2 or more falls in the past year : No Have you had a fall within the past year that has caused an injury : No Patient screen for fall risk : no falls in last year OR 1 fall with no injury in last year Zee Hackett MA - 10/22/2024 14:03 EST Normal [facility] AUTO DIFFon 10-14-2024 Baso Count 0.06 x1000 Normal 0.00-0.20 [facility] Comment on above: Performed By: #### 1 057635, 711638, 9946771, 832829, 796837, 871108, 7831608, 7898614 #### [facility] [address] [place] [address] Job Trainer: Wily Geronimo MD Basos % 0.8 % Normal [facility] Comment on above: Performed By: #### 1 086990, 872065, 9531579, 128282, 429288, 340653, 7257741, 5251344 #### [facility] [address] [place] [address] Job Trainer: Wily Geronimo MD Eos Count 0.33 x1000 Normal 0.00-0.50 [facility] Comment on above: Performed By: #### 1 335682, 286261, 6634783, 445443, 806228, 984948, 2537200, 8973167 #### [facility] [address] [place], [place] [address] Job Trainer: Wily Geronimo MD Eosinophils/100 WBC (Bld) 4.0 % Normal [facility] Comment on above: Performed By: #### 1 882425, 633927, 0528344, 050201, 150321, 374527, 1556037, 3645970 #### [facility] [address] [place] [address]231 Job Trainer: Wily Geronimo MD Lymph Count 2.94 x1000 Normal 1.20-4.80 [facility] Comment on above: Performed By: #### 1 319588, 277839, 9759681, 488082, 291565, 738445, 9219681, 5444102 #### [facility] [address] [place] [address]1968 Job Trainer: Wily Geronimo MD Lymphocytes/100 WBC (Bld) 36.3 % Normal [facility] Comment on above: Performed By: #### 1 328036, 318056, 0180046, 505374, 063332, 588298, 7867816, 0465971 #### [facility] [address] [place] [address] Job Trainer: Wily Geronimo MD Pine Count 0.81 x1000 Normal 0.10-1.00 [facility] Comment on above: Performed By: #### 1 040009, 309446, 7425073, 312764, 344386, 354764, 4461504, 3321129 #### [facility] [address] [place] [address] 19716 Job Trainer: Wily Geronimo MD Monocytes/100 WBC (Bld) 10.0 % Normal [facility] Comment on above: Performed By: #### 1 876506, 814910, 8991369, 264687, 148281, 437438, 5776350, 8865301 #### [facility] [address] [place] [address] Job Trainer: Wily Geronimo MD Neutrophil Count (ANC) 3.96 x1000 Normal 1.40-8.80 [facility] Comment on above: Performed By: #### 1 580657, 856329, 2017827, 294593, 830419, 084511, 0120271, 3159301 #### [facility] [address] [place] [address] Job Trainer: iWly Geronimo MD Neutrophils/100 WBC (Bld) 48.9 % Normal [facility] Comment on above: Performed By: #### 1 631294, 029429, 6966666, 598346, 778020, 358209, 3487070, 6444957 #### [facility] [address] [place] [address] 07999 Job Trainer: Wily Geornimo MD COMPMETAon 10-14-2024 Albumin [Mass/Vol] 4.0 g/dL Normal 3.4-5.0 [facility] Comment on above: Order Comment: Order ed on Fin# [id number] Performed By: #### 1 848014, 008060, 8293947, 133486, 565059, 096522, 4038312, 0361133 #### [facility] [address] [place] [address] Job Trainer: Wily Geronimo MD Albumin/Globulin [Mass ratio] 1.1 {ratio} Normal [facility] Comment on above: Order Comment: Order ed on Fin# [id number] Performed By: #### 1 524104, 501328, 8051277, 391269, 797117, 044609, 9817516, 3052821 #### [facility] [address] [place] [address] Job Trainer: Wily Geronimo MD Alk Phos 49 unit/L Normal 45-117 [facility] Comment on above: Order Comment: Order ed on Fin# [id number] Performed By: #### 1 869664, 606770, 5562909, 376013, 928361, 512142, 9780759, 9851774 #### [facility] [address] [place] [address] Job Trainer: Wily Geronimo MD Bilirubin [Mass/Vol] 0.90 mg/dL Normal 0.30-1.20 [facility] Comment on above: Order Comment: Order ed on Fin# [id number] Result Comment: Use of this assay is not recommended for patients undergoing treatment with eltrombopag due to the potential for falsely elevated results. Performed By: #### 1 562552, 911211, 8904925, 232165, 546647, 940455, 5346327, 9847490 #### [facility] [address] [place] [address] Job Trainer: Wily Geronimo MD Calcium [Mass/Vol] 9.5 mg/dL Normal 8.7-10.4 [facility] Comment on above: Order Comment: Order ed on Fin# [id number] Performed By: #### 1 539774, 302815, 2581225, 292386, 198616, 757178, 0180136, 5091923 #### [facility] [address] [place] [address] Job Trainer: Wily Geronimo MD Chloride [Moles/Vol] 107 mmol/L Normal 98-107 [facility] Comment on above: Order Comment: Order ed on Fin# [id number] Performed By: #### 1 509294, 022764, 1709708, 826894, 097270, 333479, 7864492, 0970651 #### [facility] [address] [place] [address] Job Trainer: Wily Geronimo MD CO2 [Moles/Vol] 28.0 mmol/L Normal 20.0-31.0 [facility] Comment on above: Order Comment: Order ed on Fin# [id number] Performed By: #### 1 748679, 696515, 4500554, 999134, 539012, 392892, 4085241, 7394613 #### [facility] [address] [place] [address] Job Trainer: Wily Geronimo MD Creatinine [Mass/Vol] 1.2 mg/dL High 0.6-1.1 [facility] Comment on above: Order Comment: Order ed on Fin# [id number] Performed By: #### 1 122127, 446300, 7861826, 713466, 853629, 615768, 9202020, 4519405 #### [facility] [address] [place] [address] Job Trainer: Wily Geronimo MD GFR AA >60 Normal [facility] Comment on above: Order Comment: Order ed on Fin# [id number] Result Comment: Afri can Moroccan GFR Calc Medical judgement is necessary to interpret GFR. The calculated GFR may not accurately reflect renal status in patients >70 years, women, acutely ill hospitalized patients and patients with acute renal failure or known renal disease. The MDRD GFR formula is valid only for adults greater than 18 years of age. Note: Creatinine clearance (not GFR) should be used for drug dosing. Performed By: #### 1 289353, 255949, 3014185, 186028, 801146, 985843, 2217826, 9271603 #### [facility] [address] [place] [address] Job Trainer: Wily Geronimo MD Globulin (S) [Mass/Vol] 3.7 g/dL Normal [facility] Comment on above: Order Comment: Order ed on Fin# [id number] Performed By: #### 1 293279, 794760, 2284855, 379741, 758052, 937047, 3759447, 7176503 #### [facility] [address] [place] [address] Job Trainer: Wily Geronimo MD Glomerular Filtration Rate >60 Normal [facility] Comment on above: Order Comment: Order ed on Fin# [id number] Result Comment: Non- GFR Calc Medical judgement is necessary to interpret GFR. The calculated GFR may not accurately reflect renal status in patients >70 years, women, acutely ill hospitalized patients and patients with acute renal failure or known renal disease. The MDRD GFR formula is valid only for adults greater than 18 years of age. Note: Creatinine clearance (not GFR) should be used for drug dosing. Performed By: #### 1 670455, 452357, 8761619, 016950, 200576, 772125, 2804663, 6968196 #### [facility] [address] [place] [address]6713 Job Trainer: Wily Geronimo MD Glucose [Mass/Vol] 112 mg/dL High 74-106 [facility] Comment on above: Order Comment: Order ed on Fin# [id number] Performed By: #### 1 059785, 677003, 0128353, 218322, 597107, 855516, 4246304, 8865102 #### [facility] [address] [place] [address] Job Trainer: Wily Geronimo MD GOT 27 unit/L Normal 15-37 [facility] Comment on above: Order Comment: Order ed on Fin# [id number] Performed By: #### 1 265977, 311694, 0714416, 171034, 148916, 100357, 7847385, 1293944 #### [facility] [address] [place] [address] 897[address] Job Trainer: Wily Geronimo MD GPT 46 unit/L Normal 10-49 [facility] Comment on above: Order Comment: Order ed on Fin# [id number] Performed By: #### 1 707658, 270022, 1091099, 882179, 550569, 576023, 5644283, 7361656 #### [facility] [address] [place] [address]269 Job Trainer: Wily Geronimo MD Osmolality [Osmolality] 286 mosm/kg Normal 275-295 [facility] Comment on above: Order Comment: Order ed on Fin# [id number] Performed By: #### 1 544207, 206592, 5863533, 975616, 588140, 004377, 8548098, 2938899 #### [facility] [address] [place] [address] 07596 Job Trainer: Wily Geronimo MD Potassium [Moles/Vol] 4.5 mmol/L Normal 3.5-5.1 [facility] Comment on above: Order Comment: Order ed on Fin# [id number] Performed By: #### 1 275351, 273792, 0309653, 018606, 776712, 057798, 6153077, 4878342 #### [facility] [address] [place] [address] 41692 Job Trainer: Wily Geronimo MD Protein [Mass/Vol] 7.7 g/dL Normal 5.7-8.2 [facility] Comment on above: Order Comment: Order ed on Fin# [id number] Result Comment: Tota l Protein results may be increased in patients receiving dextran as a blood volume business intelligence architect Performed By: #### 1 841309, 976837, 9176440, 675455, 542946, 923093, 3826651, 6373633 #### [facility] [address] [place] [address]405430 Job Trainer: Wily Geronimo MD Sodium [Moles/Vol] 142 mmol/L Normal 135-145 [facility] Comment on above: Order Comment: Order ed on Fin# [id number] Performed By: #### 1 617125, 731949, 5928402, 807525, 671370, 242758, 0400180, 9698828 #### [facility] [address] [place] [address] Job Trainer: Wily Geronimo MD Urea nitrogen [Mass/Vol] 17 mg/dL Normal 9-23 [facility] Comment on above: Order Comment: Order ed on Fin# [id number] Result Comment: - Ve nipuncture should occur prior to N-Acetyl Cysteine (NAC) or Metamizole (Sulpyrine) administration due to the potential for falsely depressed results. - Blood samples from some patients with monoclonal gammopathies may produce falsely elevated results Performed By: #### 1 545198, 572029, 8950603, 479863, 878400, 916950, 3330826, 9680585 #### [facility] [address] [place] [address] Job Trainer: Wily Geronimo MD Urea nitrogen/Creatinine [Mass ratio] 14.2 mg/mg Normal [facility] Comment on above: Order Comment: Order ed on Fin# [id number] Performed By: #### 1 596662, 484860, 1563209, 249963, 538452, 489882, 5575114, 6549671 #### [facility] [address] [place] [address] 17883 Job Trainer: Wily Geronimo MD HEMOon 10-14-2024 DIFF? No Normal [facility] Comment on above: Performed By: #### 1 364071, 563314, 7226453, 169845, 047879, 948720, 4905250, 3497410 #### [facility] [address] [place] [address] 18293 Job Trainer: Wily Geronimo MD Erythrocyte distribution width (RBC) [Ratio] 12.5 % Normal 11.5-14.5 [facility] Comment on above: Performed By: #### 1 614856, 620864, 2622483, 260172, 980107, 316703, 4362150, 2312989 #### [facility] [address] [place] [address] 72422 Job Trainer: Wily Geronimo MD Hematocrit (Bld) [Volume fraction] 46.6 % Normal 41.0-52.0 [facility] Comment on above: Performed By: #### 1 180113, 601605, 2984668, 900567, 303405, 367306, 8581827, 2278041 #### [facility] [address] [place] [address] 69135 Job Trainer: Wily Geronimo MD Hemoglobin (Bld) [Mass/Vol] 15.7 g/dL Normal 13.5-17.5 [facility] Comment on above: Performed By: #### 1 859152, 262537, 5457846, 543154, 406420, 668941, 9909369, 6210956 #### [facility] [address] [place] [address] 85239 Job Trainer: Wily Geronimo MD Instr WBC 8.1 Normal [facility] Comment on above: Performed By: #### 1 442930, 352841, 5810124, 678180, 628319, 478479, 1795322, 1805370 #### [facility] [address] [place], [place] [address] Job Trainer: Wily Geronimo MD MCH (RBC) [Entitic mass] 31.3 pg Normal 27.0-34.0 [facility] Comment on above: Performed By: #### 1 746638, 779126, 3801446, 027831, 131874, 777690, 5376988, 0998838 #### [facility] [address] [place] [address] 00840 Job Trainer: Wily Geronimo MD MCHC (RBC) [Mass/Vol] 33.7 g/dL Normal 32.0-37.0 [facility] Comment on above: Performed By: #### 1 750313, 482047, 7861688, 779199, 209030, 146602, 9499603, 4366273 #### [facility] [address] [place] [address] Job Trainer: Wily Geronimo MD MCV (RBC) [Entitic vol] 92.7 fL Normal 80.0-100.0 [facility] Comment on above: Performed By: #### 1 959576, 137389, 5950652, 930721, 639145, 413018, 3619257, 8379004 #### [facility] [address] [place] [address] Job Trainer: Wily Geronimo MD Nucleated RBC 0 /100WBC Normal [facility] Comment on above: Performed By: #### 1 318779, 034388, 4307723, 480274, 676200, 378455, 3620482, 8085408 #### [facility] [address] [place] [address] Job Trainer: Wily Geronimo MD Platelet 243 x10 Normal 150-450 [facility] Comment on above: Performed By: #### 1 543320, 870496, 2428280, 661860, 763878, 822780, 7999063, 2485258 #### [facility] [address] [place] [address] 9362030 Job Trainer: Wily Geronimo MD Platelet mean volume (Bld) [Entitic vol] 8.3 fL Normal 7.4-10.4 [facility] Comment on above: Performed By: #### 1 190770, 074741, 5388104, 568322, 908227, 643074, 8897579, 9385570 #### [facility] [address] [place] [address] 32950 Job Trainer: Wily Geronimo MD RBC 5.03 x10 Normal 4.70-6.10 [facility] Comment on above: Result Comment: Note : RBC morphology is normal unless otherwise stated. Evaluation performed only if differential is requested. Performed By: #### 1 675273, 407496, 0527056, 436605, 975586, 337268, 0273966, 1312652 #### [facility] [address] [place] [address] Job Trainer: Wily Geronimo MD WBC 8.1 x10 Normal 4.5-11.0 [facility] Comment on above: Performed By: #### 1 060679, 849577, 8480650, 012615, 221697, 961788, 2916309, 4761915 #### [facility] [address] [place] [address] Job Trainer: Wily Geronimo MD HGB A1Con 10-14-2024 HbA1c (Bld) [Mass fraction] 6.0 % Normal [facility] Comment on above: Order Comment: Order ed on Fin# [id number] Result Comment: Refe rence Range: Diabetic Greater than or equal to 6.5 % Prediabetic 5.7?6.4 % Normal Less than 5.7 % Performed By: #### 1 439309, 089651, 4968638, 743087, 155342, 691372, 4933318, 4171080 #### [facility] [address] [place] [address] Job Trainer: Wily Geronimo MD I PTHon 10-14-2024 I-PTH 71.0 pg/mL Normal 18.4-80.1 [facility] Comment on above: Order Comment: Order ed on Fin# [id number] Result Comment: - In terpretation of intact PTH values should take into account serum calcium results and the interrelationship between these two elements in various disorders involving PTH and calcium - Measurement of intact PTH is useful in differentiating between hypercalcemia due to hyperparathyroidism and hypercalcemia of malignancy - The assay is not intended as, and should not be relied upon as, a diagnostic indicator of malignancy - In patients with abnormal renal function, interpret the PTH result with caution, and do not make patient management decisions on the PTH result alone Performed By: #### 5 [id number] #### [facility] [address] [place] [address] Job Trainer: Wily Geronimo MD LIPID PNLon 10-14-2024 Calculated LDL Cholesterol 49 mg/dL Low 60-130 [facility] Comment on above: Order Comment: Order ed on Fin# [id number] Result Comment: <100 mg/dl Optimal 100-129 mg/dl Near Optimal 130-159 mg/dl Borderline High 160-189 mg/dl High >=190 mg/dl Very High Performed By: #### 1 061629, 631298, 5057647, 325912, 197394, 106561, 5935179, 3204851 #### [facility] [address] [place] [address] Job Trainer: Wily Geronimo MD Cholesterol [Mass/Vol] 127 mg/dL Normal 100-200 [facility] Comment on above: Order Comment: Order ed on Fin# [id number] Result Comment: Mari puncture should occur prior to N-Acetyl Cysteine (NAC) or Metamizole (Sulpyrine) administration due to the potential for falsely depressed results. Performed By: #### 1 570943, 250611, 8922787, 382948, 188393, 723713, 4158194, 9571005 #### [facility] [address] [place] [address] 75849 Job Trainer: Wily Geronimo MD Cholesterol in HDL [Mass/Vol] 32 mg/dL Low 40-60 [facility] Comment on above: Order Comment: Order ed on Fin# [id number] Result Comment: Dire ct HDL Venipuncture should occur prior to metamizole (sulpyrine) administration due to the potential for falsely depressed results Performed By: #### 1 338488, 177205, 5277367, 824238, 800115, 813811, 8497217, 0301153 #### [facility] [address] [place] [address] Job Trainer: Wily Geronimo MD Total Chol/HDL Chol Ratio 4.0 Normal [facility] Comment on above: Order Comment: Order ed on Fin# [id number] Performed By: #### 1 098655, 144031, 3053369, 590493, 862482, 103374, 5504900, 8558671 #### [facility] [address] [place] [address] Job Trainer: Wily Geronimo MD Triglyceride [Mass/Vol] 231 mg/dL High 30-150 [facility] Comment on above: Order Comment: Order ed on Fin# [id number] Result Comment: - Ve nipuncture should occur prior to N-Acetyl Cysteine (NAC) or Metamizole (Sulpyrine) administration due to the potential for falsely depressed results - Use of this assay is not recommended for patients being treated with etamsylate because it causes falsely decreased results Performed By: #### 1 982340, 890453, 5256924, 707876, 517282, 300408, 1281100, 6537963 #### [facility] [address] [place] [address] Job Trainer: Wily Geronimo MD MG LEVELon 10-14-2024 Magnesium [Mass/Vol] 2.0 mg/dL Normal 1.6-2.6 [facility] Comment on above: Order Comment: Order ed on Fin# [id number] Performed By: #### 1 25008, 3302730, 8716794, CD:[id number] ####[facility] [address] [place] [address] Medical Director: Wily Geronimo MD PSA SCRon 10-14-2024 Prostatic Specific Ag Screen .8 ng/mL Normal .0-4.0 [facility] Comment on above: Order Comment: Order ed on Fin# [id number] Performed By: #### 1 425300, 673230, 9081283, 417394, 651303, 742075, 0657567, 8773701 #### [facility] [address] [place] [address] Job Trainer: Wily Geronimo MD RENAL PNLon 10-14-2024 GFR Estimated 63 Normal [facility] Comment on above: Order Comment: Order ed on Fin# [id number] Result Comment: The GFR is calculated and is Age, Sex, and Race adjusted. Performed By: #### 1 56546, 1452513, 4495703, CD:[id number] ####[facility] [address] [place] [address] Medical Director: Wily Geronimo MD Albumin [Mass/Vol] 4.0 g/dL Normal 3.4-5.0 [facility] Comment on above: Order Comment: Order ed on Fin# [id number] Performed By: #### 1 49614, 5196225, 7078045, CD:[id number] ####[facility] [address] [place] [address] Medical Director: Wily Geronimo MD Calcium [Mass/Vol] 9.5 mg/dL Normal 8.7-10.4 [facility] Comment on above: Order Comment: Order ed on Fin# [id number] Performed By: #### 1 71559, 1231253, 2399506, CD:[id number] ####[facility] [address] [place] [address] Medical Director: Wily Geronimo MD Chloride [Moles/Vol] 107 mmol/L Normal 98-107 [facility] Comment on above: Order Comment: Order ed on Fin# [id number] Performed By: #### 1 32395, 4890562, 7339994, CD:[id number] ####[facility] [address] [place], [place] [address]) [phone] Director: Wily Geronimo MD CO2 [Moles/Vol] 28.0 mmol/L Normal 20.0-31.0 [facility] Comment on above: Order Comment: Order ed on Fin# [id number] Performed By: #### 1 20762, 4615613, 4243620, CD:[id number] ####[facility] [address] [place] [address] Medical Director: Wily Geronimo MD Corrected Calcium NCAL Normal 8.5-10.5 [facility] Comment on above: Order Comment: Order ed on Fin# [id number] Result Comment: Not applicable due to albumin being > or = 4g/dl. Performed By: #### 1 03471, 9735864, 9309571, CD:[id number] ####[facility] [address] [place] [address] Medical Director: Wily Geronimo MD Creatinine [Mass/Vol] 1.2 mg/dL High 0.6-1.1 [facility] Comment on above: Order Comment: Order ed on Fin# [id number] Performed By: #### 1 39069, 2467827, 8822059, CD:[id number] ####[facility] [address] [place] [address] Medical Director: Wily Geronimo MD GFR AA >60 Normal [facility] Comment on above: Order Comment: Order ed on [facility]# [id number] Result Comment: Afri can Moroccan GFR Calc Medical judgement is necessary to interpret GFR. The calculated GFR may not accurately reflect renal status in patients >70 years, women, acutely ill hospitalized patients and patients with acute renal failure or known renal disease. The MDRD GFR formula is valid only for adults greater than 18 years of age. Note: Creatinine clearance (not GFR) should be used for drug dosing. Performed By: #### 1 03182, 3106312, 7891164, CD:[id number] ####[facility] [address] [place] [address] Medical Director: Wily Geronimo MD Glomerular Filtration Rate >60 Normal [facility] Comment on above: Order Comment: Order ed on [facility]# [id number] Result Comment: Non- GFR Calc Medical judgement is necessary to interpret GFR. The calculated GFR may not accurately reflect renal status in patients >70 years, women, acutely ill hospitalized patients and patients with acute renal failure or known renal disease. The MDRD GFR formula is valid only for adults greater than 18 years of age. Note: Creatinine clearance (not GFR) should be used for drug dosing. Performed By: #### 1 45092, 4779054, 1690082, CD:[id number] ####[facility] [address] [place] [address] Medical Director: Wily Geronimo MD Glucose [Mass/Vol] 112 mg/dL High 74-106 [facility] Comment on above: Order Comment: Order ed on [facility]# [id number] Performed By: #### 1 06117, 1711378, 8192752, CD:[id number] ####[facility] [address] [place] [address] Medical Director: Wily Geronimo MD Osmolality [Osmolality] 284 mosm/kg Normal 275-295 [facility] Comment on above: Order Comment: Order ed on [facility]# [id number] Performed By: #### 1 73234, 8976146, 8478925, CD:[id number] ####[facility] [address] [place] [address] Medical Director: Wily Geronimo MD Phosphate [Mass/Vol] 3.9 mg/dL Normal 2.0-5.1 [facility] Comment on above: Order Comment: Order ed on Fin# [id number] Result Comment: Bloo d samples from some patients with monoclonal gammopathies may produce falsely elevated results Performed By: #### 1 37737, 1376430, 2283385, CD:[id number] ####[facility] [address] [place], [place] 0043730 Medical Director: Wily Geronimo MD Potassium [Moles/Vol] 4.7 mmol/L Normal 3.5-5.1 [facility] Comment on above: Order Comment: Order ed on Fin# [id number] Performed By: #### 1 24778, 9299907, 2550463, CD:[id number] ####[facility] [address] [place] [address] Medical Director: Wily Geronimo MD Sodium [Moles/Vol] 141 mmol/L Normal 135-145 [facility] Comment on above: Order Comment: Order ed on Fin# [id number] Performed By: #### 1 48041, 8634260, 9073234, CD:[id number] ####[facility] [address] [place] [address] Medical Director: Wily Geronimo MD Urea nitrogen [Mass/Vol] 18 mg/dL Normal 9-23 [facility] Comment on above: Order Comment: Order ed on Fin# [id number] Result Comment: - Ve nipuncture should occur prior to N-Acetyl Cysteine (NAC) or Metamizole (Sulpyrine) administration due to the potential for falsely depressed results. - Blood samples from some patients with monoclonal gammopathies may produce falsely elevated results Performed By: #### 1 17703, 9787828, 4402792, CD:[id number] ####[facility] [address] [place], [place] 8[address]1330 Medical Director: Wily Geronimo MD Urea nitrogen/Creatinine [Mass ratio] 15.0 mg/mg Normal [facility] Comment on above: Order Comment: Order ed on Fin# [id number] Performed By: #### 1 20967, 8182138, 2587228, CD:[id number] ####[facility] [address] [place] [address] Medical Director: Wily Geronimo MD TESTOS TOTon 10-14-2024 TESTOS TOT 161 ng/dL Low 240-1000 [facility] Comment on above: Order Comment: Order ed on Fin# [id number] Result Comment: -Max ples with biotin concentrations greater than 30 ng/ml will cause erroneus results -Samples with conjugated bilirubin concentrations > 15 mg/dL will cause erroneous results -Samples with unconjugated bilirubin concentrations > 20 mg/dL will cause erroneous results -Falsely elevated results may be seen in patients taking Nandrolone decanoate, 11?-hydroxytestosterone, and 11-ketotestosterone Performed By: #### 1 221144, 251048, 9625561, 017781, 076227, 974458, 7990817, 3249372 #### [facility] [address] [place] [address] Job Trainer: Wily Geronimo MD TSH with FT4 Reflexon 2024 TSH Qn 2.12 m[IU]/L Normal 0.55-4.78 [facility] Comment on above: Order Comment: Order ed on Fin# [id number] Result Comment: - Do not use samples that contain fluorescein. Fluorescein levels > 0.24 ?g/mL may decrease results in this assay - Patients undergoing retinal fluorescein angiography can retain amounts of fluorescein in the body for up to 48?72 hours post-treatment. Such samples can produce falsely depressed values when tested with this assay, and should not be tested Reference Intervals (if applicable): First trimester: 0.6-3.4 uIU/mL Second trimester: 0.37-3.6 uIU/mL Third trimester: 0.38-4.04 uIU/mL Reference: [email or web address] (06/2023) Performed By: #### 1 26323, 7447426, 3323290, CD:[id number] ####[facility] [address] [place] [address] Medical Director: Wily Geronimo MD UAon 10-14-2024 U MICRO Not Indicated Normal [facility] Comment on above: Performed By: #### 1 67543 ####[facility] [address] [place] [address] Medical Director: Wily Geronimo MD Appearance, U Clear Normal Clear [facility] Comment on above: Performed By: #### 1 39081 ####[facility] [address] [place], [place] [address] Medical Director: Wily Geronimo MD Bilirubin, U Negative Normal Negative [facility] Comment on above: Result Comment: Bili camarena, U: Initial positive urine bilirubin results are not confirmed. Interfering substances may include elevated urobilinogen. Trace = 0.5-1.0 mg/dL Small = 2.0-4.0 mg/dL Moderate = 6.0-8.0 mg/dL Large = 10 mg/dl and greater Performed By: #### 1 11893 ####[facility] [address] [place] [address] Medical Director: Wily Geronimo MD Blood, U Negative Normal Negative [facility] Comment on above: Result Comment: Bloo d, U: Trace = 0.03-0.05 mg/dL Small = 0.06-0.1 mg/dL Moderate = 0.2-0.5 mg/dL Large = 1.0 mg/dL and greater Performed By: #### 1 82339 ####[facility] [address] [place] [address] Medical Director: Wily Geronimo MD Color, U Yellow Normal Yellow [facility] Comment on above: Performed By: #### 1 34719 ####[facility] [address] [place] [address] Medical Director: Wily Geronimo MD Glucose Qual, U Negative Normal Negative [facility] Comment on above: Performed By: #### 1 78944 ####[facility] [address] [place] [address] Medical Director: Wily Geronimo MD Ketones, U Negative Normal Negative [facility] Comment on above: Performed By: #### 1 56576 ####[facility] [address] [place] [address] Medical Director: Wily Geronimo MD Leukocyte Esterase, U Negative Normal Negative [facility] Comment on above: Result Comment: Leuk ocyte Esterase, U: Trace = 25 Wyatt/uL Small = 75 Wyatt/uL Moderate = 250 Wyatt/uL Large = 500 Wyatt/uL and greater Performed By: #### 1 93796 ####[facility] [address] [place] [address] Medical Director: Wily Geronimo MD Nitrite, U Negative Normal Negative [facility] Comment on above: Performed By: #### 1 97802 ####[facility] [address] [place] [address] Medical Director: Wily Geronimo MD pH, U 5.0 Normal 4.5-8.0 [facility] Comment on above: Performed By: #### 1 81070 ####[facility] [address] [place] [address] Medical Director: Wily Geronimo MD Protein, U Negative Normal Negative [facility] Comment on above: Performed By: #### 1 01037 ####[facility] [address] [place] [address] Medical Director: Wily Geronimo MD Specific [place], U 1.029 Normal 1.001-1.035 [facility] Comment on above: Performed By: #### 1 18534 ####[facility] [address] [place] [address] Medical Director: Wily Geronimo MD Urobilinogen Qual, U < 2 mg/dl Normal < 2 mg/dl [facility] Comment on above: Result Comment: Urob ilinogen, U: EU/dl and mg/dl are equivalent units. Performed By: #### 1 15376 ####[facility] [address] [place] [address] Medical Director: Wily Geronimo MD VIT D 25 LEVELon 10-14-2024 Vit D 25 43 ng/mL Normal [facility] Comment on above: Order Comment: Order ed on Fin# [id number] Result Comment: Less than 20 ng/mL Deficient 20 ? 30 ng/mL Insufficient 30 ? 100 ng/mL Sufficiency Greater than 100 ng/mL Potential Toxicity Performed By: #### 1 898546, 495010, 6703612, 599789, 882537, 972823, 7689505, 5203657 #### [facility] [address] [place] [address] Job Trainer: Wily Geronimo MD Vit D 25 44 ng/mL Normal [facility] Comment on above: Order Comment: Order ed on Fin# [id number] Result Comment: Less than 20 ng/mL Deficient 20 ? 30 ng/mL Insufficient 30 ? 100 ng/mL Sufficiency Greater than 100 ng/mL Potential Toxicity Performed By: #### 1 03885, 0713133, 5336399, CD:[id number] ####[facility] [address] [place], [place] [address] Medical Director: Wily Geronimo MD Patient Letteron 09-23-2024 Patient Letter (Inserted Image. Ruthie ble to display) September 23, 2024 XANDER THURMAN [address] [place] [id number] To Whom It May Concern: The above-named patient has been under our care since September 09, 2024 and may return to work on September 14, 2024 with the following restrictions: none If you have further questions regarding this patient?s health status, please call our office. Thank you, Zuly Gomez MD. [address], [address] [place] [address] , Normal [facility] Phone Msgon 09-23-2024 Phone Msg - From: Jacki Robin To: ZULY GOMEZ MD; Sent: 09/20/2024 14:25:16 EST Caller Name: XANDER THURMAN; Caller Number: H , B [phone] Patient called needing a work note for 09/09-09/13. Am I okay to write? From: ZULY GOMEZ MD To: Jacki Robin; Sent: 09/20/2024 14:25:58 EST Subject: RE: Caller Name: CUCA XANDER PLASCENCIA; Caller Number: H , B [phone] ok LMOM [facility] BASIC METABOLIC PANELon 07-2 Anion gap [Moles/Vol] 13 mmol/L Normal 10 - 20 [facility] Comment on above: Performed By: #### B MP #### [address] [address] Calcium [Mass/Vol] 9.4 mg/dL Normal 8.6 - 10.3 [facility] Comment on above: Performed By: #### B MP #### [address] [address] Chloride [Moles/Vol] 105 mmol/L Normal 98 - 107 [facility] Comment on above: Performed By: #### B MP #### [address] [address] Creatinine [Mass/Vol] 1.06 mg/dL Normal 0.50 - 1.30 [facility] Comment on above: Performed By: #### B MP #### [address] [address] GFR- AM. >60 Normal >60 [facility] Comment on above: Result Comment: CALC ULATIONS OF ESTIMATED GFR ARE PERFORMED USING THE MDRD STUDY EQUATION FOR THE IDMS-TRACEABLE CREATININE METHODS. CLIN CHEM 2007;53:766-72 Performed By: #### B MP #### [address] [address] GFR-NON AM. >60 Normal >60 [facility] Comment on above: Performed By: #### B MP #### [address] [address] Glucose [Mass/Vol] 109 mg/dL High 74 - 99 [facility] Comment on above: Performed By: #### B MP #### [address] [address] HCO3 (Bld) [Moles/Vol] 23 mmol/L Normal 21 - 32 [facility] Comment on above: Performed By: #### B MP #### [address] [address] Potassium [Moles/Vol] 3.9 mmol/L Normal 3.5 - 5.3 [facility] Comment on above: Performed By: #### B MP #### [address] [address] Sodium [Moles/Vol] 137 mmol/L Normal 136 - 145 [facility] Comment on above: Performed By: #### B MP #### [address] [address] Urea nitrogen [Mass/Vol] 15 mg/dL Normal 6 - 23 [facility] Comment on above: Performed By: #### B MP #### [address] [address] CBCon 04-09-2021 Erythrocyte distribution width (RBC) [Ratio] 13.0 % Normal 11.5 - 14.5 [facility] Comment on above: Performed By: #### C BC #### [address] [address] Hematocrit (Bld) [Volume fraction] 53.7 % High 41.0 - 52.0 [facility] Comment on above: Performed By: #### C BC #### [address] [address] Hemoglobin (Bld) [Mass/Vol] 18.2 g/dL High 13.5 - 17.5 [facility] Comment on above: Performed By: #### C BC #### [address] [address] MCHC (RBC) [Mass/Vol] 33.9 g/dL Normal 32.0 - 36.0 [facility] Comment on above: Performed By: #### C BC #### [address] [address] MCV (RBC) [Entitic vol] 95 fL Normal 80 - 100 [facility] Comment on above: Performed By: #### C BC #### [address] [address] NUCLEATED RBC 0.0 /100 WBC Normal 0.0 - 0.0 [facility] Comment on above: Performed By: #### C BC #### [address] [address] Platelets (Bld) [#/Vol] 181 10*3/uL Normal 150 - 450 [facility] Comment on above: Performed By: #### C BC #### [address] [address] RBC 5.67 x10E12/L Normal 4.50 - 5.90 [facility] Comment on above: Performed By: #### C BC #### [address] [address] WBC (Bld) [#/Vol] 6.2 10*3/uL Normal 4.4 - 11.3 [facility] Comment on above: Performed By: #### C #### [facility] [address] [place] [address] Consult-Cardiologyon 021 Consult-Cardiology Service: Service: Cardiology Consult: Consult requested by (Attending Name): Vida Winkler Reason: chest pressure, dizziness, near syncope, hx CAD History of Present Illness: HPI: XANDER THURMAN is a 50 year old Male with history of CAD and single stent placement, presumably within the LAD, at the age of 43 when he presented with unstable angina 3 weeks after his pain onset, and was found to have a completely occluded LAD that was revascularized. The remaining of his vessels were within the normal limits. He also has been on treatment for hypertension, has required 3 medications including losartan, hydrochlorothiazide and amlodipine and according to him his blood pressure has not been adequately controlled and the systolics has been frequently around the 150s. He is on injectable medications for his cholesterol. He has no history of diabetes and he is smokes cigars sporadically. He has family history of CAD with his father having massive SD at the age of 49. He woke up yesterday early in the morning and felt pressure in both eyes and when he checks his blood pressure, found it to be 180/90. Once he rechecked it several times over the course of few hours, find it to be consistently elevated. Later in the morning, he had edema feeling and felt slightly but he denies lightheadedness and denies fainting or syncope. He denies any palpitations. Early afternoon, he developed moderate substernal chest pressure and tightness that radiated to the back and was associated with some shortness of breath but no nausea, vomiting or diaphoresis. Symptoms have been intermittent since then, variable in intensity but never completely resolved. He identifies it as identical to the symptoms he had prior to his stent placement years ago. He continued to have this chest tightness and heaviness throughout the night though and milder form and stated that he currently feels prescription in his chest though mild. He denies orthopnea, PND, or lower extremity swelling. He also expressed significant anxiety and concern about his stent status, mostly due to the fact that he was told that he had stenting the maker or close to it and and that he could have from it. 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 EKG upon presentation showed normal sinus rhythm with sinus tachycardia at 103 bpm and diminished R wave progression in leads V1 through V3 consistent with old anterior SD but no definitive ST changes to indicate ischemia. His troponin was marginally elevated at 0.05. D-dimer was negative. Review of systems was completed, and unless documented above, all other systems were reviewed and they are negative for complaints. Past medical history: Significant for CAD with prior PCI 7 years ago, hypertension that has been difficult to control, and hyperlipidemia. He has no history of diabetes. 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 No history of drug abuse. Family history: His father had a massive SD at the age of 48. Review Family/Social History and ROS: Social History: Smoking Status: never smoker (1) Allergies: No Known Allergies: Objective: Objective Information: T PRBPSpO2 [id number]/9996% Date/Time04/09 4: 4: 4: 4: 4:34 Range(36C - 36.9C ) (86 - 103 ) (16 - 24 ) (145 - 180 )/ (82 - 99 ) (94% - 99% ) Highest temp of 36.9 C was recorded at 04/08 16:00 Weights 04/09 4:34: Weight in kg (Weight (kg)) 120.8 04/09 4:34: Weight in lbs ((lbs)) 266.3 04/08 15:52: BMI (kg/m2) (BMI (kg/m2)) 36.821 Physical Exam by System: Constitutional: The patient appeared pleasant, laying flat in bed in no apparent distress. No cyanosis, no edema and no clubbing. Eyes: Appear normal, and vision appears intact ENMT: Hearing was intact. Head/Neck: Overall normal, neck was supple, and thyroid was not enlarged. Respiratory/Thorax: Chest was clear to auscultation with bilateral good air entry Cardiovascular: Normal S1 and normal S2 with no added sounds or gallops. No murmurs and JVP was normal. Cardiac apex was normal. There are no signs of heart failure. Pulse was regular. Gastrointestinal: Abdomen was soft and nontender with no organomegalies and no palpable masses Musculoskeletal: No edema and no acute joint signs Neurological: Appears intact with no focal neurological deficit Psychological: Patient is well oriented to time, place and person. Skin: No bruising and no skin rash are noted Medications: Medications: Continuous Medications ------- No continuous medications are active Scheduled Medications ------- 1. amLODIPine (NORVASC): 10 mg Oral Daily 2. Aspirin Enteric Coated: 81 mg Oral Daily 3. Carvedilol: 6.25 mg Oral 2 Times a Day 4. hydroCHLOROthiazide: 25 mg Oral (more content not included)... Normal [facility] [id number] 021 Discharge Profile2 Discharge Orders: Anticipated Discharge Date: Anticipated Discharge [id number] DNAR: DNAR Status: none Hospital Course (Home Care/Gold Form): Hospital Course: Hospital Course: include significant abnormal lab values Over the course of hospitalization, patient's troponin remained stable. He did continue to have intermittent chest pain. Patient was taken for left heart cath on 04/09/[address] Saavedra, per report no blockage was found. Echo was done which showed normal EF without reported wall motion of normality. Patient cleared by cardiology for discharge and follow-up as outpatient. Provider FINAL REVIEW of Orders: Final Review: Final Review of Medication Reconciliation and Orders Completedby Physician Reviewing ProviderFei MD Odell at 09-Apr-2021 13:06:54 Appointments: Follow-Up Appointment 01: Physician/Dept/ServiceYou r primary care physician Reason for ReferralHospital follow-up Call to Schedule in1 week Follow-Up Appointment 02: Physician/Dept/Daniiu r associate chemist Reason for ReferralChest pain Call to Schedule in1 week Electronic Signatures: Mason Bain) (Signed 09-Apr-2021 13:06) Authored: Discharge Orders, Hospital Course (Home Care/Gold Form), Provider FINAL REVIEW of Orders, Appointments, Gold Form - Recruiter Coordinator Summary Last Updated: 09-Apr-2021 13:06 by Mason Bain) Normal [facility] [place]ogram[place] 04-[place]-2021 Echocardiography [facility] [place] [address] [facility] [address] TRANSTHORACIC ECHOCARDIOGRAM REPORT Patient Name: XANDER THURMAN Reading Physician: [id number] Andreina Mcgarry MD Study Date: 04/09/2021 Referring Physician: [id number] WINKLER MRN/PID: [id number] PCP: Accession/Order#: [id number] Department Location: [facility] Date of : 1970 Fellow: Gender: M Nurse: Admit Date: Operator Bearer Systems: Demi Ruiz Admission Status: Inpatient - Additional Staff: Routine Height: 177.80 cm CC Report to: Weight: 120.66 kg Study Type: Echocardiogram BSA: 2.36 m2 Blood Pressure: 175 /99 mmHg Diagnosis/ICD: [id number] Indication: Procedure/CPT: Echo Complete w Full [id number] Study Detail: The following Echo studies were performed: 2D, M-Mode, Doppler and color flow. PHYSICIAN INTERPRETATION: Left Ventricle: The left ventricular systolic function is normal, with an estimated ejection fraction of 60-65%. There are no regional wall motion abnormalities. The left ventricular cavity size is normal. There is mild to moderate left ventricular hypertrophy. Spectral Doppler shows an impaired relaxation pattern of left ventricular diastolic filling. Left Atrium: The left atrium is normal in size. Right Ventricle: The right ventricle is normal in size. There is normal right ventricular global systolic function. Right Atrium: The right atrium is normal in size. Aortic Valve: The aortic valve appears structurally normal. There is no evidence of aortic valve regurgitation. The peak instantaneous gradient of the aortic valve is 3.4 mmHg. Mitral Valve: The mitral valve is normal in structure. There is trace mitral valve regurgitation. Tricuspid Valve: The tricuspid valve is structurally normal. There is trace tricuspid regurgitation. Pulmonic Valve: The pulmonic valve is not well visualized. There is trace pulmonic valve regurgitation. Pericardium: There is no pericardial effusion noted. Aorta: The aortic root is normal. CONCLUSIONS: 1. The left ventricular systolic function is normal with a 60-65% estimated ejection fraction. 2. Spectral Doppler shows an impaired relaxation pattern of left ventricular diastolic filling. QUANTITATIVE DATA SUMMARY: 2D MEASUREMENTS: Normal Ranges: LAs: 3.77 cm (2.7-4.0cm) IVSd: 1.28 cm (0.6-1.1cm) LVPWd: 1.53 cm (0.6-1.1cm) LVIDd: 4.15 cm (3.9-5.9cm) LVIDs: 2.98 cm LV Mass Index: 94.1 g/m2 LV % FS 28.2 % LA VOLUME: Normal Ranges: LA Vol A4C: 44.4 ml (22+/-6mL/m2) LA Vol A2C: 44.6 ml LA Vol BP: 44.9 ml LA Vol Index A4C: 18.8 ml/m2 LA Vol Index A2C: 18.9 ml/m2 LA Vol Index BP: 19.1 ml/m2 LA Area A4C: 17.1 cm2 LA Area A2C: 17.3 cm2 LA [place] A4C: 5.6 cm LA [place] A2C: 5.7 cm LA Volume Index: 19.0 ml/m2 LA Vol A4C: 41.2 ml LA Vol A2C: 42.0 ml M-MODE MEASUREMENTS: Normal Ranges: AoV Exc: 2.30 cm (1.5-2.5cm) LAs: 3.87 cm (2.7-4.0cm) AORTA MEASUREMENTS: Normal Ranges: AoV Exc: 2.30 cm (1.5-2.5cm) LV SYSTOLIC FUNCTION BY 2D PLANIMETRY (MOD): Normal Ranges: EF-A4C View: 62.3 % (>55%) EF-A2C View: 60.7 % EF-Biplane: 61.8 % LV DIASTOLIC FUNCTION: Normal Ranges: MV Peak E: 0.69 m/s (0.7-1.2 m/s) MV Peak A: 0.73 m/s (0.42-0.7 m/s) E/A Ratio: 0.95 (1.0-2.2) MITRAL VALVE: Normal Ranges: MV DT: 151 msec (150-240msec) AORTIC VALVE: Normal Ranges: AoV Vmax: 0.92 m/s (<1.7m/s) AoV Peak P.4 mmHg (<20mmHg) LVOT Max Anuj: 1.03 m/s (<1.1m/s) LVOT Diameter: 2.18 cm (1.8-2.4cm) AoV Area,Vmax: 4.22 cm2 (2.5-4.5cm2) RIGHT VENTRICLE: RV 1 3.62 cm RV 2 2.98 cm RV 3 6.93 cm TAPSE: 22.6 mm [id number] Andreina Mcgarry MD Electronically signed on 04/09/2021 at 12:55:21 PM Final Normal [facility] HEMOGLOBIN A1Con 04-09-2021 Glucose [Mass/Vol] 111 mg/dL Normal [facility] Comment on above: Performed By: #### H BA1E #### [facility] [address] [place] [address] HbA1c (Bld) [Mass fraction] 5.5 % Normal [facility] Comment on above: Result Comment: Diag nosis of Diabetes-Adults Non-Diabetic: < or = 5.6% Increased risk for developing diabetes: 5.7-6.4% Diagnostic of diabetes: > or = 6.5% . Monitoring of Diabetes Age (y) Therapeutic Goal (%) Adults: >18 <7.0 Pediatrics: 13-18 <7.5 7-12 <8.0 0- 6 7.5-8.5 [place] [employer]. Diabetes Care 33(S1), Sep 2009. Performed By: #### H BA1E #### [facility] [address] [place] [address] LIPID PANEL (CORONARY RISK 2 )on 04-09-2021 Cholesterol [Mass/Vol] 137 mg/dL Normal 0 - 199 [facility] Comment on above: Result Comment: . AGE DESIRABLE BORDERLINE HIGH HIGH 0-19 Y 0 - 169 170 - 199 >/= 200 20-24 Y 0 - 189 190 - 224 >/= 225 >24 Y 0 - 199 200 - 239 >/= 240 All ranges are based on fasting samples. Specific therapeutic targets will vary based on patient-specific cardiac risk. . Pediatric guidelines reference:Pediatrics 2011, 128(S5). Adult guidelines reference: NCEP ATPIII Guidelines, QUOC 2001, 258:2486-97 . Venipuncture immediately after or during the administration of Metamizole may lead to falsely low results. Testing should be performed immediately prior to Metamizole dosing. Performed By: #### H BA1E #### [facility] [address] [place] [address] Cholesterol in HDL [Mass/Vol] 38.0 mg/dL Abnormal [facility] Comment on above: Result Comment: . AGE VERY LOW LOW NORMAL HIGH 0-19 Y < 35 < 40 40-45 ---- 20-24 Y ---- < 40 >45 ---- >24 Y ---- < 40 40-60 >60 . Performed By: #### H BA1E #### [facility] [address] [place] [address] Cholesterol in LDL [Mass/Vol] 52 mg/dL Normal 0 - 99 [facility] Comment on above: Result Comment: . NEAR BORD AGE DESIRABLE OPTIMAL HIGH HIGH VERY HIGH 0-19 Y 0 - 109 --- 110-129 >/= 130 ---- 20-24 Y 0 - 119 --- 120-159 >/= 160 ---- >24 Y 0 - 99 100-129 130-159 160-189 >/=190 . Performed By: #### H BA1E #### [facility] [address] [place] [address] Cholesterol in VLDL [Mass/Vol] 47 mg/dL High 0 - 40 [facility] Comment on above: Performed By: #### H BA1E #### [facility] [address] [place] [address] Cholesterol.total/Cho lesterol in HDL [Mass ratio] 3.6 {ratio} Normal [facility] Comment on above: Result Comment: REF VALUES DESIRABLE < 3.4 HIGH RISK > 5.0 Performed By: #### H BA1E #### [facility] [address] [place] [address] NON-HDL CHOLESTEROL 99 mg/dL Normal [facility] Comment on above: Result Comment: AGE DESIRABLE BORDERLINE HIGH HIGH VERY HIGH 0-19 Y 0 - 119 120 - 144 >/= 145 >/= 160 20-24 Y 0 - 149 150 - 189 >/= 190 ---- >24 Y 30 MG/DL ABOVE LDL CHOLESTEROL GOAL . Performed By: #### H BA1E #### [facility] [address] [place] [address] Triglyceride [Mass/Vol] 237 mg/dL High 0 - 149 [facility] Comment on above: Result Comment: . AGE DESIRABLE BORDERLINE HIGH HIGH VERY HIGH 0 D-90 D 19 - 174 ---- ---- ---- 91 D- 9 Y 0 - 74 75 - 99 >/= 100 ---- 10-19 Y 0 - 89 90 - 129 >/= 130 ---- 20-24 Y 0 - 114 115 - 149 >/= 150 ---- >24 Y 0 - 149 150 - 199 200- 499 >/= 500 . Venipuncture immediately after or during the administration of Metamizole may lead to falsely low results. Testing should be performed immediately prior to Metamizole dosing. Performed By: #### H BA1E #### [facility] [address] [place] [address] Left Heart Catheterizationon 04-09-2021 Left Heart Catheterization [facility] [place] [address] [place] [address] Cardiovascular Catheterization Report Patient Name: XANDER THURMAN Performing [address] Andreina Mcgarry Physician: Study Date: 04/09/2021 Verifying Physician: [id number] Andreina Mcgarry MD MRN/PID: [id number] Trust Manager Assistant: Accession/Order#: [id number] Referring Physician: [id number] Mason Bain Date of : 1970 Referring Physician: Gender: M Referring Physician: Study: Left Heart Catheterization Indications: XANDER THURMAN is a 51 year old male who presents with hypertension. Acute coronary syndrome <=24 hrs, with a chest pain assessment of typical angina. Study performed as an urgent cath procedure. Medical History: Stress test performed: No. CTA performed: No. Agatston accessed: No. LVEF Assessed: Yes. Procedure Description Comments: Procedures _ Left heart catheterization _ Selective coronary angiography _ Selective left ventricular angiography Indications _ ACS with Unstable Angina _ S/P Stenting of the px LAD 7 years ago. Procedural description and results Vascular access was obtained via the right radial artery, and 5 Welsh catheters was used to complete the procedure. The following findings were obtained; The left main coronary artery: appeared angiographically normal. The left anterior descending coronary artery: Has scattered mild irregularities throughout its length but there were no critical obstructions. The proximal segment is stented and the stent is patent with no restenosis. There are two sizable diagonals with mild disease. The left circumflex coronary artery: Is a large dominant vessel and has scattered mild irregularities, consistent with mild atherosclerosis but no significant obstructions. There are 2 sizable obtuse marginals with mild disease. The PDA is sizable with mild disease. The right coronary artery: Is a non-dominant vessel, and appeared angiographically normal. Left ventricular angiogram: Revealed normal size left ventricle, with normal LVEF that is estimated to be 60% with no wall motion abnormalities. No gradient was noted across the aortic valve, upon catheter pullback. LVEDP was estimated to be 2 mmHg. Conclusion _ Mild coronary atherosclerosis but no significant coronary obstruction. LAD stent is patent with no restenosis. _ Normal LVEF, estimated to be 60% Recommendations: Medical therapy. Coronary Angiography: The coronary circulation is left dominant. Coronary Interventions: Pre-intervention FILOMENA flow was 3. Post-intervention FILOMENA flow was 3. Hemo Personnel: + +-- + Name Duty + +-- + Andreina Carreon MD PROC 1 + +-- + Mary Anne Moffett PROC SCRUB 1 + +-- + Dirk Varghese RN PROC CIRC 1 + +-- + Rosalinda Farooq RN PROC RECORD 1 + +-- + Sedation Time: + + --------+ Sedation Start/End Times Time + + --------+ Drugs Fentanyl 50 mcg IV per Physician + + --------+ Start 04/09/2021 08:18:02 + + --------+ End 04/09/2021 08:32:05 + + --------+ Equipment Used: + +--- ----+ Date/Time Description + +--- ----+ 04/09/2021 7:46:51 AM {Accessories} - Manifold Custom Kit - Qty: 1 Each Part #: [id number] + +--- ----+ 04/09/2021 7:46:51 AM {Accessories} - MBrace Wrist Support, with Hook - Qty: 1 Each Part #: [id number] + +--- ----+ 04/09/2021 7:46:51 AM {Accessories} - 21Ga x 4.0cm Andrew Advance Thin Wall Needle - Qty: 1 Each Part #: [id number] + +--- ----+ 04/09/2021 7:46:51 AM {Closure} - TR Band Closure device - Qty: 1 Each Part #: [id number] + +--- ----+ 04/09/2021 7:46:51 AM {Diagnostic Wires} Andrew Romero InQwire .[id number] - Qty: 1 Each Part #: [id number] + +--- ----+ 04/09/2021 7:46:51 AM {Contrast} - Isovue-370 100ml - Qty: 1 Each Part #: [id number] + +--- ----+ 04/09/2021 7:46:58 AM {5 Fr C Catheters} - 5Fr x 100cm Infiniti TL JL 4 - Qty: 1 Each Part #: [id number] + +--- (more content not included)... Normal [facility] [place] Reconciliationon 04-09 Order Reconciliation Page 1 Discharge Reconciliation Document Reconciliation Type: Discharge requested on behalf of Mason Bain (Physician) done by Mason Bain) Discharge - Reconciliation: 09-Apr-2021 13:08 by: Mason Bain) Discharge - Reset to Incomplete: 09-Apr-2021 13:41 by: Mason Bain) Discharge - Reconciliation: 09-Apr-2021 13:41 by: Mason Bain) Home Medications EnteredHOME MEDICATIONS AT DISCHARGE DateReconciliation Comment/ Additional Information amLODIPine 5 mg oral tablet 1 tab(s) orally once a day 08-Apr-2021 14:31 Discontinued; Discontinue from ORM amLODIPine 5 mg oral tablet is not required aspirin 81 mg oral tablet 1 tab(s) orally once a day 08-Apr-2021 14:33 aspirin 81 mg oral tablet 1 tab(s) orally once a day 08-Apr-2021 14:33 aspirin 81 mg oral tablet is continued as aspirin 81 mg oral tablet Praluent Pen 75 mg/mL subcutaneous solution 75 milligram(s) subcutaneous every 2 weeks 08-Apr-2021 14:32 Praluent Pen 75 mg/mL subcutaneous solution 75 milligram(s) subcutaneous every 2 weeks 08-Apr-2021 14:32 Praluent Pen 75 mg/mL subcutaneous solution is continued as Praluent Pen 75 mg/mL subcutaneous solution testosterone cypionate 200 mg/mL intramuscular solution 200 milligram(s) intramuscular every 2 weeks 08-Apr-2021 14:33 testosterone cypionate 200 mg/mL intramuscular solution 200 milligram(s) intramuscular every 2 weeks 08-Apr-2021 14:33 testosterone cypionate 200 mg/mL intramuscular solution is continued as testosterone cypionate 200 mg/mL intramuscular solution valsartan-hydrochlorothia zide 320mg-25mg oral tablet 1 tab(s) orally once a day 08-Apr-2021 14:31 valsartan-hydrochlorothia zide 320mg-25mg oral tablet 1 tab(s) orally once a day 08-Apr-2021 14:31 valsartan-hydrochlorothia zide 320mg-25mg oral tablet is continued as valsartan-hydrochlorothia zide 320mg-25mg oral tablet Current OrdersDateHOME MEDICATIONS AT DISCHARGE DateReconciliation Comment/ Additional Information Acetaminophen Tablet (TYLENOL)DOSE = 650 mg Oral Every 4 Hours, PRN Pain - Mild (1-3) 08-Apr-2021 15:16 Acetaminophen is not required Acetaminophen Tablet (TYLENOL)DOSE = 650 mg Oral Every 4 Hours, PRN Temp Greater Than or Equal to 38.0 C 08-Apr-2021 15:16 Acetaminophen is not required amLODIPine (NORVASC) TabletDOSE = 10 mg Oral Daily 08-Apr-2021 16:36 amLODIPine 10 mg oral tablet 1 tab(s) orally once a day 09-Apr-2021 13:41 Prescription is created for amLODIPine 10 mg oral tablet Aspirin Enteric Coated Enteric Coated Tablet (ECOTRIN)DOSE = 81 mg Oral Daily 08-Apr-2021 16:36 Aspirin Enteric Coated is not required Carvedilol Tablet (COREG)DOSE = 6.25 mg Oral 2 Times a Day 08-Apr-2021 16:37 carvedilol 6.25 mg oral tablet 1 tab(s) orally 2 times a day 09-Apr-2021 13:41 Prescription is created for carvedilol 6.25 mg oral tablet hydrALAZINE (APRESOLINE) Injectable DOSE = 10 mg IntraVenous Push Every 4 Hours, PRN SBP >180 or DBP >95 08-Apr-2021 16:37 hydrALAZINE (APRESOLINE) Injectable is not required hydroCHLOROthiazide Tablet (ESIDRIX)DOSE = 25 mg Oral DailyNotes from Pharmacy: Substitution for Hydrochlorothiazide Component of DIOVAN HCT 320 - 25 Tab Once Daily 08-Apr-2021 16:36 hydroCHLOROthiazide is not required Nitroglycerin SubLingual Powder (GONITRO)DOSE = 0.4 mg SubLingual Every 5 Minutes, PRN Angina 08-Apr-2021 22:55 Nitroglycerin SubLingual is not required Ondansetron Injectable (ZOFRAN)DOSE = 4 mg IntraVenous Push Every 4 Hours, PRN Nausea and/or Vomiting 08-Apr-2021 15:16 Ondansetron Injectable is not required Pantoprazole Enteric Coated Tablet (PROTONIX)DOSE = 40 mg Oral Daily 08-Apr-2021 16:43 Pantoprazole is not required Perflutren Lipid Microsphere (Activated) 1.3 mL / NaCL 0.9% T.V. 10 mL Injectable DOSE = 0.5 mL IntraVenous Push OnceClinician Notes: 1. Dilute 1.3 mL of activated DEFINITY with 8.7 mL of normal saline in a 10 mL syringe.2. Inject 0.5 mL of diluted 08-Apr-2021 15:16 Perflutren Lipid Microsphere (Activated) 1.3 mL / NaCL 0.9% T.V. 10 mL Injectable is not required Sodium Chloride 0.9% Infusion IV Bag Volume = 1,000 mL Run at: 150 mL/hr IntraVenous Stop After 3 Hours 09-Apr-2021 09:01 Sodium Chloride 0.9% Infusion is not required Valsartan Tablet (DIOVAN)DOSE = 320 mg Oral DailyNotes from Pharmacy: Substitution for Valsartan Component of DIOVAN HCT 320 - 25 Tab Once Daily 08-Apr-2021 16:36 Valsartan is not required All Active Home Medications at time of Discharge Reconciliation: 09-Apr-2021 13:41 amLODIPine 10 mg oral tablet 1 tab(s) orally once a day aspirin 81 mg oral tablet 1 tab(s) orally once a day carvedilol 6.25 mg oral tablet 1 tab(s) orally 2 times a day Praluent Pen 75 mg/mL subcutaneous solution 75 milligram(s) subcutaneous every 2 weeks testosterone cypionate 200 mg/mL intramuscular solution 200 milligram(s) intramuscular every 2 weeks valsartan-hydrochlorothia zide 320mg-25mg oral tablet 1 tab(s) orally once a day Normal [facility] [place] Risk Screen - Adul ton 04-08-2021 Admission Risk Screen - Adult Allergies: Allergies: No Known Allergies: Patient Verification: New W ID Band Applied in my Departmentyes Patient Identity Verified Bypatient ID Band FULL Name, include Middle, spelling matches patient's ID used for verificationyes ID Band Matches Patient ID used for Verficationyes ID Band MRN Matches EMR MRNyes Visitor Restriction: Coronavirus Visitor Restriction: Reasonable restrictions to in-person visitors will be observed due to current coronavirus pandemic. Travel History: COVID-19 Screening Completedno exposure or symptoms(1) Travel or Exposure Past 30 DaysNO travel to International locations in the past 30 days Ebola AlertFor Ebola-like Symptoms: Isolate Patient and Notify Provider/Weigher Alloy For Contact: Notify Provider/Weigher Alloy Advance Directive: Advance Directive/DNRyes Advance Directive typeLiving Will Living Will AvailabilityLiving Will not available now Living Will [id number] Advanced Directive CommentSharita Thurman () Hartmann Fall Screen: History of falling (immediate or previous)no (0) Secondary Diagnosisyes (15) Intravenous Therapy/ Heparin/Saline Lockyes (20) Gait/Transferringnormal/b edrest/wheelchair (0) Ambulatory Aidsnone/bedrest/nurse assist (0) Mental Statusoriented to own ability (0) Score: Low risk (<25). Moderate risk (25-44). High risk (>44).35 Hartmann InterventionsMODERATE INTERVENTIONS: *Low Interventions Plus: * falls risk band/sticker applied to patient, *yellow non-skid footwear, *instruct to call for assistance before getting out of bed, *bed/chair/bedside commode/toilet alarms, *sensory devices/ambulatory aides available and in reach, *medications reviewed for potential side effects and care planning. Family Violence Screen: Are you or have you been threatened or abused physically, emotionally, or sexually by anyoneno Do you feel UNSAFE going back to the place where you are livingno Clinical assessment: Are there any apparent signs of injuries/behaviors that could be related to abuse/neglectno Social Service Consult for abuse/neglect needed this visitno Functional Screen: Functional Screen: In the recent/past 2-4 weeks, patient or family have noticedno issues that require a speech/language consult at this time AM-PAC- Basic Mobility/Daily Activity: Patient baseline bedboundno Turning from your back to your side while in a flat bed without using bedrailsnone Moving from lying on your back to sitting on the side of a flat bed without using bedrailsnone Moving to and from bed to chair (including a wheelchair)none Standing up from a chair using your arms (e.g. wheelchair or bedside chair) none To walk in hospital roomnone Climbing 3-5 steps with railingnone Basic Mobility - Total Score24 Putting on and taking off regular lower body clothingnone Bathing (including washing, rinsing, drying)none Putting on and taking off regular upper body clothingnone Toileting, which includes using toilet, bedpan or urinalnone Taking care of personal grooming such as brushing teethnone Eating Mealsnone Daily Activity - Total Score24 Learning Assessment (Patient): Patient is Able to be Assessed for Learningyes Factors Influencing Readiness to Learnacuteness of illness; anxiety Factors that Impact Ability to Learnnone Devices/Methods Used to Communicatenone Learning Preferencesverbal instruction Cultural Considerationsnone Developmental Considerationsnone Islam Considerationsnone Learning Assessment (Other Learner): Other learner availableno Depression Screen: During the past month, have you often been bothered by feeling down, depressed or hopelessno During the past month, have you often had little interest or pleasure in doing thingsno Have you had any thoughts of harming anyone elseno (1) [place] Suicide: Risk Screen Not Applicable/Able to Answerable to be screened In the Past Month: Have you wished you were or could go to sleep and not wake upno(1) In the Past Month: Have you had any actual thoughts of killing yourself no(1) Lifetime: Have you ever done, started to do, or prepared to do anything to end your lifeno [place] Suicide Risknegative Adult Nutrition Screen: Have you recently lost weight without tryingno Have you been eating poorly because of a decreased appetiteno Malnutrition Screening Tool Score0 Malnutrition Screening Tool RiskMST = 0 or 1 Not at risk. Eating well with little or no weight loss Nutrition Consult needed this visitno Can Patient Participate in Room Serviceyes Patient requires Paper Dishes/Plastic Utensilsno Pain Screen: Pain Scalenumerical 0-10 Pain Scale Educationteaching provided Current Pain Level0 = None Acceptable Pain Level0 = None Expression of Pain (nonverbal)none Chronic Painno Spiritual Screen: Are there any cultural, spiritual, voodoo practic (more content not included)... Normal [facility] CBC AND DIFFERENTIALon 04-08 % AUTOMATED IMMATURE GRAN 0.3 % Normal 0.0 - 0.9 [facility] Comment on above: Result Comment: Nataliia ture Granulocyte Count (IG) includes promyelocytes, myelocytes and metamyelocytes but does not include bands. Percent differential counts (%) should be interpreted in the context of the absolute cell counts (cells/L). Performed By: #### C BCDF #### [address] [address] Basophils (Bld) [#/Vol] 0.06 10*3/uL Normal 0.00 - 0.10 [facility] Comment on above: Performed By: #### C BCDF #### [address] [address] Basophils/100 WBC (Bld) 0.9 % Normal 0.0 - 2.0 [facility] Comment on above: Performed By: #### C BCDF #### [address] [address] Eosinophils (Bld) [#/Vol] 0.19 10*3/uL Normal 0.00 - 0.70 [facility] Comment on above: Performed By: #### C BCDF #### [address] [address] Eosinophils/100 WBC (Bld) 2.7 % Normal 0.0 - 6.0 [facility] Comment on above: Performed By: #### C BCDF #### [address] [address] Erythrocyte distribution width (RBC) [Ratio] 12.8 % Normal 11.5 - 14.5 [facility] Comment on above: Performed By: #### C BCDF #### [address] [address] Hematocrit (Bld) [Volume fraction] 55.2 % High 41.0 - 52.0 [facility] Comment on above: Performed By: #### C BCDF #### [address] [address] Hemoglobin (Bld) [Mass/Vol] 18.9 g/dL High 13.5 - 17.5 [facility] Comment on above: Performed By: #### C BCDF #### [address] [address] Lymphocytes (Bld) [#/Vol] 2.57 10*3/uL Normal 1.20 - 4.80 [facility] Comment on above: Performed By: #### C BCDF #### [address] [address] Lymphocytes/100 WBC (Bld) 37.1 % Normal 13.0 - 44.0 [facility] Comment on above: Performed By: #### C BCDF #### [address] [address] MCHC (RBC) [Mass/Vol] 34.2 g/dL Normal 32.0 - 36.0 [facility] Comment on above: Performed By: #### C BCDF #### [address] [address] MCV (RBC) [Entitic vol] 94 fL Normal 80 - 100 [facility] Comment on above: Performed By: #### C BCDF #### [address] [address] Monocytes (Bld) [#/Vol] 0.85 10*3/uL Normal 0.10 - 1.00 [facility] Comment on above: Performed By: #### C BCDF #### [address] [address] Monocytes/100 WBC (Bld) 12.3 % Normal 2.0 - 10.0 [facility] Comment on above: Performed By: #### C BCDF #### [address] [address] Neutrophils (Bld) [#/Vol] 3.24 10*3/uL Normal 1.20 - 7.70 [facility] Comment on above: Performed By: #### C BCDF #### [address] [address] Neutrophils/100 WBC (Bld) 46.7 % Normal 40.0 - 80.0 [facility] Comment on above: Performed By: #### C BCDF #### [address] [address] NUCLEATED RBC 0.0 /100 WBC Normal 0.0 - 0.0 [facility] Comment on above: Performed By: #### C BCDF #### [address] [address] Platelets (Bld) [#/Vol] 210 10*3/uL Normal 150 - 450 [facility] Comment on above: Performed By: #### C BCDF #### [address] [address] RBC 5.88 x10E12/L Normal 4.50 - 5.90 [facility] Comment on above: Performed By: #### C BCDF #### [address] [address] WBC (Bld) [#/Vol] 6.9 10*3/uL Normal 4.4 - 11.3 [facility] Comment on above: Performed By: #### C BCDF #### [address] [address] CHEST 1 VIEWon 04-08-2021 CHEST 1 VIEW STUDY: Chest Radiograph; 04/08/2021 11:56AM INDICATION: Chest pain. COMPARISON: None available. ACCESSION NUMBER(S): [id number] ORDERING CLINICIAN: ANIBAL GILL DO TECHNIQUE: Frontal chest was obtained at 1253 hours. FINDINGS: CARDIOMEDIASTINAL SILHOUETTE: Cardiomediastinal silhouette is normal in size and configuration. LUNGS: Lungs are clear. ABDOMEN: No remarkable upper abdominal findings. BONES: No acute osseous changes. IMPRESSION: 1. No acute pulmonary infiltrate. Signed by Judie Harrison Electronically signed by: JUDIE HARRISON MD Normal [facility] COMPREHENSIVE PANELon 2020 Albumin [Mass/Vol] 4.8 g/dL Normal 3.4 - 5.0 [facility] Comment on above: Performed By: #### C MP #### [address] [address] ALP [Catalytic activity/Vol] 40 U/L Normal 33 - 120 [facility] Comment on above: Performed By: #### C MP #### [address] [address] ALT [Catalytic activity/Vol] 44 U/L Normal 10 - 52 [facility] Comment on above: Result Comment: Carole ents treated with Sulfasalazine may generate falsely decreased results for ALT. Performed By: #### C MP #### [address] [address] Anion gap [Moles/Vol] 13 mmol/L Normal 10 - 20 [facility] Comment on above: Performed By: #### C MP #### [address] [address] AST [Catalytic activity/Vol] 35 U/L Normal 9 - 39 [facility] Comment on above: Performed By: #### C MP #### [address] [address] Bilirubin [Mass/Vol] 1.3 mg/dL High 0.0 - 1.2 [facility] Comment on above: Performed By: #### C MP #### [address] [address] Calcium [Mass/Vol] 9.5 mg/dL Normal 8.6 - 10.3 [facility] Comment on above: Performed By: #### C MP #### [address] [address] Chloride [Moles/Vol] 101 mmol/L Normal 98 - 107 [facility] Comment on above: Performed By: #### C MP #### [address] [address] Creatinine [Mass/Vol] 1.12 mg/dL Normal 0.50 - 1.30 [facility] Comment on above: Performed By: #### C MP #### [address] [address] GFR- AM. >60 Normal >60 [facility] Comment on above: Result Comment: CALC ULATIONS OF ESTIMATED GFR ARE PERFORMED USING THE MDRD STUDY EQUATION FOR THE IDMS-TRACEABLE CREATININE METHODS. CLIN CHEM 2007;53:766-72 Performed By: #### C MP #### [address] [address] GFR-NON AM. >60 Normal >60 [facility] Comment on above: Performed By: #### C MP #### [address] [address] Glucose [Mass/Vol] 114 mg/dL High 74 - 99 [facility] Comment on above: Performed By: #### C MP #### [address] [address] HCO3 (Bld) [Moles/Vol] 23 mmol/L Normal 21 - 32 [facility] Comment on above: Performed By: #### C MP #### [address] [address] Potassium [Moles/Vol] 3.9 mmol/L Normal 3.5 - 5.3 [facility] Comment on above: Performed By: #### C MP #### [address] [address] Protein [Mass/Vol] 7.6 g/dL Normal 6.4 - 8.2 [facility] [place] Comment on above: Performed By: #### C MP #### [place] [address] Sodium [Moles/Vol] 133 mmol/L Low 136 - 145 [facility] [place] Comment on above: Performed By: #### C MP #### [place] [address] Urea nitrogen [Mass/Vol] 14 mg/dL Normal 6 - 23 [facility] Comment on above: Performed By: #### C MP #### [place] [id number] CORONAVIRUS 2019, SCREEN ASY MPTOMATICon 04-08-2021 SARS-CoV-2 (COVID-19) RNA ROSSI+probe Ql (Unsp spec) Not detected Normal Not Detected [facility] Comment on above: Result Comment: . This test has received FDA Emergency Use Authorization (EUA) and has been verified by [facility]. This test is only authorized for the duration of time that circumstances exist to justify the authorization of the emergency use of in vitro diagnostic tests for the detection of SARS-CoV-2 virus and/or diagnosis of COVID-19 infection under section 564(b)(1) of the Act, 21 U.S.C. 360bbb-3(b)(1), unless the authorization is terminated or revoked sooner. [facility] is certified under CLIA-88 as qualified to perform high complexity testing. Testing is performed in the [facility] laboratory located at [address] [place] [address]. SARS-CoV-2/Flu/RSV Multiplex Test: Fact sheet for providers: https://www.fda.gov/media/849674/download Fact sheet for patients: https://www.fda.gov/media/296560/download Performed By: #### C OVSC #### [place] [id number] Lab Specimen Source Nasal, Nasopharyngeal Normal [facility] Comment on above: Performed By: #### C OVSC #### [place] [id number] Clinical Intervention - Phar reagan 04-08-2021 Clinical Intervention - Pharmacy Pharmacist's Clinical Intervention: Is this intervention medication reconciliation related: Yes, History Electronic Signatures: Peter Bee ([place]) (Signed 08-Apr-2021 14:34) Authored: Pharmacist's Clinical Intervention Last Updated: 08-Apr-2021 14:34 by Peter Bee ([place]) [facility] Covid 19 Resultson SARS-CoV-2 (COVID-19) RNA ROSSI+probe Ql (Unsp spec) NEGATIVE COVID-19 Test Coronaviruses are common world-wide and are the cause of many common colds. SARS-COV2 is a new coronavirus that began circulating worldwide in 2019 so we are calling it COVID-19. It has been estimated that four out of five patients with COVID-19 will recover at home without the need for medical attention. Symptoms of COVID-19 may include cough, fever, shortness of breath, loss of taste or smell and other flu-like symptoms including chills, sore muscles, sore throat, and headache. Severe illness is more common in older people and people with other health problems such as high blood pressure, obesity, and immune system problems. If the test is positive, you have COVID-19. You will be contacted by the ordering physicians office and instructed to remain on home isolation, in accordance with CDC guidelines. You may also be contacted by the [facility] to see if any of your close contacts may have been exposed to the virus and need to quarantine. If the test is negative, you likely do not have COVID-19 at this time, but you still may have a different illness that can spread to other people (like Influenza, or the Flu) and could still be at risk for getting COVID-19. We recommend that you stay away from other people to limit the spread of illness until your symptoms are improving and you are fever-free for 24 hours without the use of fever lowering medications such as acetaminophen or ibuprofen. No test is 100% accurate so if you are still concerned you may have COVID-19, talk to your doctor about the need to continue to stay away from others. Medicines Unless your provider told you not to use the following: Acetaminophen (Tylenol and others) is generally safe. Anti-inflammatory medications, such as Ibuprofen (Advil or Motrin) or Naproxen (Aleve) can also be used. Mxwq-pny-vpfukcd cough and cold medicines can be used according to the instructions on the package. Some iclf-imz-grfqsbb medicines also contain acetaminophen. Make sure you are not taking more than your recommended dose. For those not hospitalized, there is no specific treatment available for this illness. Antibiotics do not treat Coronaviruses. Follow-Up Follow up with your doctor by scheduling a virtual visit or consider follow-up at one of our urgent care fever clinics. If you are having difficulty breathing, or are very weak and having difficulty standing, this is a medical emergency. Call 911 or have someone take you to the nearest emergency room immediately. If possible, wear a facemask. Additional guidance from the CDC for patients who tested POSITIVE for COVID-19 How to isolate: Isolate yourself in a specific room at home and limit your contact with others. Use a separate bathroom from other members of the household, when possible. Leave home only to get essential medical care. Do not go to work, school or public areas. Avoid using public transportation, ride-sharing, or taxis. Restrict contact with pets and other animals. If you must care for your pet or be around animals while you are sick, wash your hands before and after your interaction and wear a facemask. Make sure that shared spaces in the home have good airflow, such as by an air conditioner or an opened window, weather permitting. Personal Hygiene Procedures: Wear a face mask when in the same room as other people or pets. If a face mask interferes with your breathing, others should wear a mask when sharing space with you. Frequent hand-washing: wash your hands with soap and water for at least 20 seconds. If soap and water are not available, use alcohol-based hand township supervisor. Avoid touching your eyes, nose, and mouth with unwashed hands. Household Hygiene Procedures: Avoid sharing personal household items such as dishes, glassware, cups, eating utensils, towels or bedding with other people or pets in your home. After use, these items should be washed with soap and hot water. Disinfect all high-touch surfaces every day with antibacterial cleaning solutions such as Lysol wipes, bleach, cleansers, etc. High-touch surfaces include tabletops, doorknobs, bathroom fixtures, toilets, phones, keyboards, tablets and bedside tables. Immediately clean any surfaces that may have blood, poop or body fluids on them, using antibacterial cleaning solutions such as Lysol wipes, bleach, cleansers, etc. If clothing or bedding come into contact with blood, poop or body fluids, they should be washed immediately. Follow the directions on the laundry detergent and clothing labels but hot water is recommended when possible. Stopping home isolation precautions: If possible, consult your doctor before stopping home isolation precautions. According to the CDC, you can discontinue home isolation precautions when you have met both of these criteria: Your fever and respiratory symptoms have been gone for 24 meño (more content not included)... Normal [facility] D-DIMER, VTE EXCLUSIONon D-DIMER, VTE EXCLUSION <215 Normal < or = 500 [facility] Comment on above: Result Comment: The VTE Exclusion D-Dimer assay is reported in ng/mL Fibrinogen Equivalent Units (FEU). Per manufacturers instructions for use, a value of less than 500 ng/mL (FEU) may help to exclude DVT or PE in outpatients when the assay is used with a clinical pretest probability assessment. (AEMR must utilize and document eCalc Wells Score Deep Vein Thrombosis Risk for DVT exclusion only; Emergency Department should utilize Guidelines for Emergency Department Use of the VTE Exclusion D-Dimer and Clinical Pretest probability assessment model for DVT or PE exclusion.) [facility]: A HEMATOCRIT VALUE GREATER THAN 55% MAY LEAD TO INACCURATE RESULTS IN COAGULATION TESTING. PATIENTS HAVING HEMATOCRIT VALUES >55% REQUIRE A SPECIAL COLLECTION TUBE FOR COAGULATION STUDIES. PLEASE CONTACT THE LABORATORY AT [phone] FOR INSTRUCTIONS. 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 Near syncopal episode, observation status. discharge needs unknown - will continue to monitor and follow plan of care. 04.09.2021 Care Transition Met with patient to confirm information. From home with spouse Juliette Thurman. PCP Dr. Nas Gomez. [facility] No issues with affording/obtaining medications. Takes as prescribed. NO devices. 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 Present with chest pain. Strong family history of early SD and father before 50. Cardiac cath today. No interventions. Discharge to home with no needs. Will make own follow up appointments. Ethel García RN Assessment: Discharge Planning Assessment [id number] Discharge Planning Assessment Completed byEthel garcía RN Primary Contact Name and NumberJuliette Thurman spouse [phone] Stated Reason for AdmissionHTN chest pain [place] (1) Readmission Within the Last 30 Daysno previous admission in last 30 days PCPDr. zuly Gomez PCP Last Date SeenNA [facility] [place] Medication Adherence/Afford/Obtainye s Insuranceanthem Lives Withspouse(1) Living Arrangementshouse(1) Recent Falls/ Injury/ Need Assist with AmbulationNo Prior Level of FunctioningIndependent works multimedia teacher Resource/Environmental Concernsnone(1) Transportation Home Who/Howprivate auto with family Anticipated Transition [place](1) Services Anticipated at Transitionnone(1) Anticipated Changes Related to Illnessnone Equipment Needed After Dischargenone Anticipated Discharge Facility/Level of Care NeedsHome Electronic Signatures: Ethel García (KRISTINA) (Signed 09-Apr-2021 20:23) Authored: Discharge Planning, Assessment Boris Stevenson) (Signed 08-Apr-2021 15:57) Authored: Discharge Planning, Assessment Last Updated: 09-Apr-2021 20:23 by Ethel García (KRISTINA) References: 1. Data Referenced From Patient Profile - Adult v2 08-Apr-2021 15:52 Normal [facility] Order Reconciliationon 04-08 Order Reconciliation Page 1 Admission Reconciliation Document Reconciliation Type: ED to Observation requested on behalf of Vida Winkler (Physician) done by Vida Winkler (DO) ED to Observation - Reconciliation: 08-Apr-2021 16:36 by: Vida Winkler () ED to Observation - AutoLinked: 08-Apr-2021 16:36 by: Vida Winkler (DO) Home MedicationsEnteredLast Dose TakenReconciled with current Order Reconciliation Comment/ Additional Information amLODIPine 5 mg oral tablet 1 tab(s) orally once a [id number] AM amLODIPine (NORVASC) TabletDOSE = 10 mg Oral DailyamLODIPine 5 mg oral tablet continued as the inpatient order amLODIPine (NORVASC) aspirin 81 mg oral tablet 1 tab(s) orally once a [id number] AM Aspirin Enteric Coated Enteric Coated Tablet (ECOTRIN)DOSE = 81 mg Oral Dailyaspirin 81 mg oral tablet continued as the inpatient order Aspirin Enteric Coated Praluent Pen 75 mg/mL subcutaneous solution 75 milligram(s) subcutaneous every [id number] Reviewed and Held testosterone cypionate 200 mg/mL intramuscular solution 200 milligram(s) intramuscular every 2 [id number] Reviewed and Held valsartan-hydrochlorothia zide 320mg-25mg oral tablet 1 tab(s) orally once a day [id number] AM Valsartan Tablet (DIOVAN)DOSE = 320 mg Oral DailyNotes from Pharmacy: Substitution for Valsartan Component of DIOVAN HCT 320 - 25 Tab Once Dailyvalsartan-hydrochlor othiazide 320mg-25mg oral tablet continued as the inpatient order Valsartan; valsartan-hydrochlorothia zide 320mg-25mg oral tablet continued as the inpatient order hydroCHLOROthiazide valsartan-hydrochlorothia zide 320mg-25mg oral tablet 1 tab(s) orally once a day [id number] AM hydroCHLOROthiazide Tablet (ESIDRIX)DOSE = 25 mg Oral DailyNotes from Pharmacy: Substitution for Hydrochlorothiazide Component of DIOVAN HCT 320 - 25 Tab Once Dailyvalsartan-hydrochlor othiazide 320mg-25mg oral tablet continued as the inpatient order Valsartan; valsartan-hydrochlorothia zide 320mg-25mg oral tablet continued as the inpatient order hydroCHLOROthiazide Additional Current Orders Acetaminophen Tablet (TYLENOL)DOSE = 650 mg Oral Every 4 Hours, PRN Pain - Mild (1-3) Acetaminophen Tablet (TYLENOL)DOSE = 650 mg Oral Every 4 Hours, PRN Temp Greater Than or Equal to 38.0 C Ondansetron Injectable (ZOFRAN)DOSE = 4 mg IntraVenous Push Every 4 Hours, PRN Nausea and/or Vomiting Perflutren Lipid Microsphere (Activated) 1.3 mL / NaCL 0.9% T.V. 10 mL Injectable DOSE = 0.5 mL IntraVenous Push OnceClinician Notes: 1. Dilute 1.3 mL of activated DEFINITY with 8.7 mL of normal saline in a 10 mL syringe.2. Inject 0.5 mL of diluted DEFINITY when notified the images/film are unclear to enhance view of Left Ventricular borders.3. Repeat 0.5 mL of DEFINITY until clear images are obtained, not to exceed 10 mLs.4. Once images are obtained or limit of medication is reached, flush line with 10 mL of Normal Saline. Normal [facility] Patient Profile - Adult v2on 04-08-2021 Patient Profile - Adult v2 Profile: Initial Info: How to be AddressedWilliam Spoken Language PreferredEnglish Stated Reason for AdmissionHTN Wants Family/Rep Notified of Admissionyes, primary contact Notify PCPnotify PCP Informed of [facility] [place] [place] Patient Belongingsnone Medications Brought to Hospitalyes Medication Dispositionhospital safe General Health: Weight in kg119.7 kilogram(s) Weight in jok870.8 pound(s) Weight Methodactual (measured) Scale Typebed Height in cm180.3 centimeter(s) Height in feet5 feet Height in inch(es) Height Methodstated BMI (kg/m2)36.821 square meter RSP Based Care: How would you like to participate in your careactively What is the number one concern for you during this hospitalizationwarm blankets What is the most important thing we can do to support you during this hospitalizationpain meds Is there anything we need to know to best care for younone Substance: Smoking Statusnever smoker Health Mgmt: Symptoms/Conditions Managed at Homenone Barriers to Managing Healthnone Relationship/Environ: Resource/Environmental Concernsnone Primary Source of Support/Comfortspouse Lives Withspouse Living Arrangementshouse Services Anticipated at Transitionnone Anticipated Transition [place] Significant IndicatorsComplete Information Review: Allergies, Home Meds and Significant Events have been Reviewed and Verified with Patient/Familyyes ALLERGY, INTOLERANCE, ADVERSE EVENT: Allergies: No Known Allergies: Active Electronic Signatures: Boris Stevenson (RN) (Signed 08-Apr-2021 15:54) Authored: Initial Info, General Health, RSP Based Care, Substance, Health Mgmt, Relationship/Environ, Additional Information Last Updated: 08-Apr-2021 15:54 by Boris Stevenson (KRISTINA) [facility] Provider Note - ED v2on 03-19 Provider Note - ED v2 Provider Note - ED v2: Chart Review: ED NOTES ED NOTES: Patient is a 50-year-old male with history of CAD, hypertension present for 2-year chief complaint of near syncope. Patient states that he had a prolonged car ride to and from [place] recently and was evaluated 2 days ago at [facility] for right upper extremity swelling. He had a venous duplex at that time that was negative. He states that this morning he woke felt feeling lightheaded. At work he was up and walking around when he had a sudden onset worsening of his lightheadedness and blurred vision as well as shortness of breath and nausea. He checked his blood pressure and found it to be high, systolic around 180. He is primarily concerned about possible blood clots as well as chest tightness, which he states is similar to when he needed a stent previously. Past medical history: CAD, hypertension, hyperlipidemia, testosterone deficiency past surgical history: PCI with stenting, back surgery, knee surgery family history: Reviewed not pertinent to today's complaint social history: Denies tobacco and recreational drug use. Admits occasional alcohol use. Lives at home with family. Review of systems CONST: No fever No chills No diaphoresis EYS/ENT: No change in vision No sore throat No nasal congestion CVS/PULM: + chest pain + shortness of breath No cough No hemoptysis GI/: No abdominal pain + nausea No vomiting No diarrhea No constipation No dysuria No hematuria MS/SKIN/LYMPH: No arm pain No leg pain No neck pain No back pain No numbness/weakness/tinglin g No Leg edema No skin rashes NEURO/PSYCH: No headache No syncope + lightheadedness No vertigo Physical exam General: Appears well Alert HEENT: Head atraumatic Eyes normal inspection PERRL Normal ENT inspection Pharynx normal No signs of dehydration NECK: Normal inspection RESPIRATORY: Normal breath sounds No chest wall tenderness No respiratory distress CVS: Heart rate and rhythm regular No Murmurs ABDOMEN/GI: Soft Non-tender No distention BACK: Normal inspection EXTREMITIES: Non-Tender Full ROM Normal appearance No Pedal edema NEURO: Alert and oriented X 3 CN's normal as tested Sensation normal Motor normal PSYCH: Mood normal Affect normal SKIN: Color normal No rash Warm Dry MDM: Patient resenting with a near syncopal episode as well as chest pain and dyspnea, though not present currently. Cardiac work-up obtained and is unremarkable. Due to the patient's CAD history and subjective history not suggestive of vasovagal syncope, he is a moderate risk. Due to this I did discuss with hospitalist, Dr. Winkler, who agreed to admit the patient for observation. This was discussed with the patient and his who are agreeable. Transfer to the floor in hemodynamically stable condition. HISTORY OF PRESENTING ILLNESS XANDER is a 50 year old Male and was seen by me at 08-Apr-2021 12:22 for a chief complaint of hypertension . Other complaints include: HTn this morning SBP 180s -- dizziness, blurred vision and mild chest tightness. Hx of HTN (1). Triage Information: Most recent Vital Sign Value Date Heart Rate (beats/min): 103 04-08-2021 12:16 Respirations (breaths/min): 20 04-08-2021 12:16 SpO2 (%): 95 04-08-2021 12:16 BP Systolic (mm Hg): 153 04-08-2021 12:16 BP Diastolic (mm Hg): 82 04-08-2021 12:16 PAST MEDICAL HISTORY ATTESTATION: I have reviewed and confirmed nurse's/medic's notes for patient's medications, allergies, and medical, surgical, family and social history ALLERGIES/INTOLERANCES: No Known Allergies HEALTH HISTORY: No documented data. OUTPATIENT MEDICATIONS: Home Medications Review Status for Reconciliation: Complete Med Status: Patient Currently Takes Medications Drug Name: amLODIPine 5 mg oral tablet Instructions: 1 tab(s) orally once a day Drug Name: valsartan-hydrochlorothia zide 320mg-25mg oral tablet Instructions: 1 tab(s) orally once a day Drug Name: Praluent Pen 75 mg/mL subcutaneous solution Instructions: 75 milligram(s) subcutaneous every 2 weeks Drug Name: testosterone cypionate 200 mg/mL intramuscular solution Instructions: 200 milligram(s) intramuscular every 2 weeks Drug Name: aspirin 81 mg oral tablet Instructions: 1 tab(s) orally once a day SIGNIFICANT EVENTS: No documented data. RESULTS/VITAL SIGNS RESULTS: Recent Lab Results: I have reviewed these laboratory results: Troponin I, Serum Trending View [id number] 15:16:00 08-Apr-2021 12:27:00 Troponin I, Serum0.02 0.03 Complete Blood Count + Differential 08-Apr-2021 12:27:00 ResultValue White Blood Cell Count 6.9 Nucleated Erythrocyte Count 0.0 Red Blood Cell Count 5.88 HGB 18.9 H HCT 55.2 H MCV 94 MCHC 34.2 PLT 210 RDW-CV 12.8 Neutrophil % 46.7 Nataliia (more content not included)... Normal [facility] TROPONIN Ion 04-08-2021 Troponin I.cardiac [Mass/Vol] 0.03 ng/mL Normal 0.00 - 0.03 [facility] Comment on above: Result Comment: LESS THAN 0.04 NG/ML: NEGATIVE REPEAT TESTING IN THREE TO SIX HOURS IF CLINICALLY INDICATED. 0.04 - 0.5 NG/ML: CONSISTENT WITH POSSIBLE CARDIAC DAMAGE AND POSSIBLE INCREASED CLINICAL RISK. SERIAL MEASUREMENTS MAY HELP ASSESS EXTENT OF MYOCARDIAL DAMAGE. >0.5 NG/ML: CONSISTENT WITH CARDIAC DAMAGE, INCREASED CLINICAL RISK AND MYOCARDIAL INFARCTION. SERIAL MEASUREMENTS MAY HELP ASSESS EXTENT OF MYOCARDIAL DAMAGE. . Note: Troponin I testing is performed using different testing methodology at [facility] than at other [facility]. Direct result comparisons should only be made within the same method. Performed By: #### B MP #### [facility] [id number] [place] [address] Troponin I.cardiac [Mass/Vol] 0.02 ng/mL Normal 0.00 - 0.03 [facility] Comment on above: Result Comment: LESS THAN 0.04 NG/ML: NEGATIVE REPEAT TESTING IN THREE TO SIX HOURS IF CLINICALLY INDICATED. 0.04 - 0.5 NG/ML: CONSISTENT WITH POSSIBLE CARDIAC DAMAGE AND POSSIBLE INCREASED CLINICAL RISK. SERIAL MEASUREMENTS MAY HELP ASSESS EXTENT OF MYOCARDIAL DAMAGE. >0.5 NG/ML: CONSISTENT WITH CARDIAC DAMAGE, INCREASED CLINICAL RISK AND MYOCARDIAL INFARCTION. SERIAL MEASUREMENTS MAY HELP ASSESS EXTENT OF MYOCARDIAL DAMAGE. . Note: Troponin I testing is performed using different testing methodology at [facility] than at [facility]. Direct result comparisons should only be made within the same method. Performed By: #### T ROP2 #### [address] [place] [address] Troponin I.cardiac [Mass/Vol] 0.03 ng/mL Normal 0.00 - 0.03 [facility] Comment on above: Result Comment: LESS THAN 0.04 NG/ML: NEGATIVE REPEAT TESTING IN THREE TO SIX HOURS IF CLINICALLY INDICATED. 0.04 - 0.5 NG/ML: CONSISTENT WITH POSSIBLE CARDIAC DAMAGE AND POSSIBLE INCREASED CLINICAL RISK. SERIAL MEASUREMENTS MAY HELP ASSESS EXTENT OF MYOCARDIAL DAMAGE. >0.5 NG/ML: CONSISTENT WITH CARDIAC DAMAGE, INCREASED CLINICAL RISK AND MYOCARDIAL INFARCTION. SERIAL MEASUREMENTS MAY HELP ASSESS EXTENT OF MYOCARDIAL DAMAGE. . Note: Troponin I testing is performed using different testing methodology at [facility] than at [facility]. Direct result comparisons should only be made within the same method. Performed By: #### T ROP2 #### [address] [place] [address] Triage - EDon 04-08-2021 Triage - ED Chart Review: ARRIVAL INFORMATION Mode of Arrival: ambulance Agency Name: [facility] CHIEF COMPLAINT XANDER THURMAN is a Male patient with a chief complaint of hypertension. Onset of the Complaint: 08-Apr-2021 06:00 Other Complaints: HTn this morning SBP 180s -- dizziness, blurred vision and mild chest tightness. Hx of HTN Triage Date/Time: 08-Apr-2021 12:16 NALINI: 3 Pain Rating (0-10): 2 = Mild Vital Signs: Temperature: F ( C) taken temporal Blood Pressure: 153/82 Mean: Heart Rate: 103 Respiratory Rate: 20 Pulse Oximetry: 95% on room air, no respiratory support. [place] Coma Scale: Best Eye Response: (E4) spontaneous Best Motor Response: (M6) obeys commands Best Verbal Response: (V5) oriented [place] Score: 15 Patient has homicidal thoughts: no Area Of Chest Pain: Entire Chest Area Risk Screens Suicide Risk Screen In the Past Month: Have you wished you were or wished you could go to sleep and not wake up no In the Past Month: Have you had any actual thoughts of killing yourself no In Your Lifetime: Have you ever done anything, started to do anything, or prepared to do anything to end your life no Hartmann Fall Scale Screening Has the patient fallen before (or is the patient in the ED as a result of a fall) has not had a fall Does the patient have an impaired gait does not have impaired gait Is the patient cognitively impaired not cognitively impaired Interventions: Hartmann Fall Interventions: LOW INTERVENTIONS: *patient oriented to surroundings and call system, * patient/family falls education completed and documented, *patients fall status communicated during bedside handoff, *whiteboard updated, *mode of toileting discussed with patient, *bed in low position with brakes locked, *call light in reach, * non-skid footwear TRAVEL HISTORY Travel History Coronavirus Screening: no exposure or symptoms Travel Exposure History: NO travel to International locations in the past 30 days PAIN Pain Scale Used: MAURICIO Pain Rating (0-10): 2 = Mild Past Medical History: Past Medical History Reviewedyes Electronic Signatures: Margot Jaimes (KRISTINA) (Signed 08-Apr-2021 12:20) Authored: Quick Triage, Risk Screens, Pain, Travel History, Chart Review, Scores, Past Medical History Last Updated: 08-Apr-2021 12:20 by Margot Jaimes (KRISTINA) Normal [facility] Coronavirus 2019on 0 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 [facility] Comment on above: Result Comment: This test was developed and its performance characteristics determined by [facility] [place]. This test has been authorized by FDA under an Emergency Use Authorization (EUA). This test has been validated in accordance with the FDA's Guidance Document Policy for Diagnostics Testing in Laboratories Certified to Perform High Complexity Testing under CLIA prior to Emergency use Authorization for Coronavirus Disease 2019 during the Public Health Emergency issued on November 16, 2019. 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 Denies SOB, myalgias, fevers, chills. Pt is a member of the [facility] Department. No known exposure to COVID-19 positive individuals. No recent sick contacts or travel. O: GENERAL: This is a well appearing male VITALS: BP 166/105 Pulse (!) 121 Temp 36.6 ?C (97.8 ?F) (Oral) Resp 20 SpO2 98% A: Awake and Alert, RRR and CTAB. Medical Screening Complete, no apparent distress. P: In my assessment, patient is stable for referral to off-site testing. Order placed for outpatient COVID-19 testing. Patient instructed to await phone call regarding scheduling this test. Patient instructed to go home and isolate until any symptoms have resolved. Patient instructed to schedule virtual visit or return to ED if he/she experiences worsening fever, shortness of breath or other concern. Given that pt is a member of the [facility] dpt, pt will be tested for COVID-19 in the ED now. Carly Parra PA-C Normal [facility] Vital Signs Date Time Vital Sign Value Performing Clinician Nickii randolph 03-24-2025 14:47-0400 Body temperature 98 [degF] No Primary Care Physician [facility] 03-24-2025 14:47-0400 Diastolic blood pressure 78 mm[Hg] No Primary Care Physician [facility] 03-24-2025 14:47-0400 Heart rate 73 /min No Primary Care Physician [facility] 03-24-2025 14:47-0400 Respiratory rate 14 /min No Primary Care Physician [facility] 03-24-2025 14:47-0400 SaO2% (BldA) [Mass fraction] 99 % No Primary Care Physician [facility] 03-24-2025 14:47-0400 Systolic blood pressure 132 mm[Hg] No Primary Care Physician [facility] 03-24-2025 10:46-0400 Body height 180.34 cm No Primary Care Physician [facility] 03-24-2025 10:46-0400 Body mass index (BMI) [Ratio] 35.8 kg/m2 No Primary Care Physician [facility] 03-24-2025 10:46-0400 Body weight 116.43 kg No Primary Care Physician [facility] Encounters Encounter Date Encounter Type Care Provider Facility Start: 07-20-2025 End: 07-20-2025 ambulatory GODWIN KENT MD Facility:[facility] Start: 07-02-2025 End: 07-02-2025 ambulatory ZULY GOMEZ MD Facility:[facility] Start: 06-06-2025 End: 06-06-2025 ambulatory ZULY GOMEZ MD Facility:[facility] Start: 05-29-2025 End: 05-29-2025 ambulatory ZULY GOMEZ MD Facility:[facility] Start: 04-28-2025 ambulatory ZULY GOMEZ MD Fa cility:[facility] Start: 04-23-2025 End: 04-23-2025 ambulatory ZULY GOMEZ MD Facility:[id number] Start: 04-10-2025 End: 04-10-2025 ambulatory No Primary Care Physician -Laboratory Specimen Start: 04-10-2025 End: 04-10-2025 Patient encounter procedure Joy Arellano DEVELOPMENTAL WRITING INSTRUCTOR-C -Laboratory Specimen Work Phone: Start: 04-10-2025 End: 04-10-2025 ambulatory Joy Reyes Facility:[facility] Start: 03-29-2025 End: 03-29-2025 ambulatory ALTAGRACIA HEWITT MD Facility:[id number] Start: 03-24-2025 End: 03-24-2025 Emergency department patient visit No Primary Care Physician -Emergency Department Work Phone: Start: 03-10-2025 ambulatory ZULY GOMEZ MD Fa cility:[facility] Start: 03-05-2025 End: 03-05-2025 ambulatory ZULY GOMEZ MD Facility:[id number] Start: 03-05-2025 End: 03-05-2025 ambulatory ZULY GOMEZ MD Facility:[facility] Start: 02-20-2025 End: 02-20-2025 ambulatory No Primary Care Physician [facility] Work Phone: Start: 02-20-2025 End: 02-20-[address] Bobo Maria MD -Laboratory Specimen Work Phone: Start: 02-20-2025 End: 02-20-2025 ambulatory No Primary Care Physician Facility:[facility] Start: 12-31-2024 End: 12-31-2024 ambulatory DEYSI BOWIE MD-MR Facility:[facility] Start: 12-11-2024 End: 12-11-2024 ambulatory ZULY GOMEZ MD Facility:[facility] Start: 12-06-2024 End: 12-06-2024 ambulatory ZULY GOMEZ MD Facility:[facility] Start: 11-13-2024 ambulatory ZULY GOMEZ MD Fa cility:[facility] Start: 10-24-2024 End: 10-24-2024 ambulatory SHARITA LO ASSOCIATE PROFESSOR OF ENGLISH Facility:[id number] Start: 10-22-2024 End: 10-22-2024 ambulatory SHARITA LO ASSOCIATE PROFESSOR OF ENGLISH Facility:[facility] Start: 10-14-2024 End: 10-14-2024 ambulatory ZULY GOMEZ MD Facility:[id number] Start: 09-20-2024 ambulatory ZULY GOMEZ MD Fa cility:[facility] Start: 06-19-2024 End: 07-20-2025 Patient encounter procedure GODWIN KENT MD Office [id number] Start: 01-29-2024 End: 06-11-2025 Patient encounter procedure ZULY GOMEZ MD Office [id number] Start: 07-05-2023 End: 07-06-2023 ambulatory ZULY GOMEZ MD Facility:[facility] Start: 06-24-2023 Letter encounter Jean Paul chaves Start: 06-09-2023 End: 06-10-2023 ambulatory ZULY GOMEZ MD Facility:[facility] Start: 06-04-2023 End: 06-04-2023 ambulatory ZULY GOMEZ MD Facility:[facility] Start: 05-25-2023 ambulatory ZULY GOMEZ MD Fa cility:[facility] Start: 04-27-2023 End: 04-28-2023 ambulatory ZULY GOMEZ MD Facility:[facility] Start: 03-31-2023 End: 03-31-2023 ambulatory ZULY GOMEZ MD Facility:[facility] Start: 02-13-2023 End: 02-13-2023 ambulatory ZULY GOMEZ MD Facility:[facility] Start: 02-10-2023 End: 02-11-2023 ambulatory ZULY GOMEZ MD Facility:[facility] Start: 01-16-2023 End: 01-16-2023 Postop follow up visit related to original px Brian Joe DPM Work Phone: Dr. Nicole SALCIDO Comment on above: Ingrowing nail (Prim danilo Dx) Start: 01-12-2023 End: 01-12-2023 Unlisted evaluation and management service Brian JEFFREYM Work Phone: Dr. Nicole SALCIDO Comment on above: Ingrowing nail (Prim danilo Dx); Pain in toe of right foot; Pain in toe of left foot; H/O ingrown nail Start: 12-23-2022 Letter encounter Jean Paul chaves Start: 11-11-2022 End: 11-12-2022 ambulatory ZULY GOMEZ MD Facility:[facility] Start: 11-09-2022 End: 11-09-2022 Postop follow up visit related to original px Brian Joe DPM Work Phone: Dr. Nicole SALCIDO Comment on above: Plantar wart (Primar y Dx) Start: 11-07-2022 End: 11-07-2022 Unlisted evaluation and management service Brian Joe DPM Work Phone: Dr. Nicole SALCIDO Comment on above: Ingrowing nail (Prim danilo Dx) Start: 09-30-2022 End: 10-01-2022 ambulatory ZULY GOMEZ MD Facility:[facility] Start: 08-03-2022 ambulatory ZULY GOMEZ MD Fa cility:[facility] Start: 12-17-2021 Letter encounter Jean Paul chaves Procedures Date Procedure Procedure Detail Performing Clinician Start: 04-10-2025 Gram stain microscopy N o Primary Care Physician Start: 04-10-2025 End: 04-10-2025 Microbial culture, routine No Primary Ca re Physician Start: 03-24-2025 CT of soft tissues o f neck with contrast No Primary Care Physician Start: 03-24-2025 Estimated creatinine clearance No Primary Care Physician Start: 02-20-2025 Gram stain microscopy N o Primary Care Physician Start: 02-20-2025 End: 02-20-2025 Microbial culture, routine No Primary Ca re Physician Start: 02-20-2024 Right Upper Parathyr oid Adenoma Removal ZULY GOMEZ MD Start: 01-02-2006 LAMINECTOMY L5-S1 ALPA GOMEZ MD Start: 09-18-1981 Left inguinal hernia repair ZULY GOMEZ MD Colonoscopy ZULY CHURCH MD Excision benign lesi on buttock ZULY GOMEZ MD LYPOMA ON LEG ZULY CASTAÑEDA MD Nasal septoplasty ZULY GALINDO MD Plan of Treatment Date Care Activity Detail Author Start: 04-09-2026 LIPID SCREEN LIPID SCREEN [facility] Start: 03-24-2025 [facility] Start: 02-20-2025 Microbial culture, routine Wound Culture [facility] Start: 02-20-2025 [facility] Start: 04-09-2024 DIABETES SCREEN DIABETES SCREEN [facility] Start: 05-19-2023 Influenza vaccination [facility] Start: 09-18-2022 DEPRESSION ASSESSMENT DEPRESSION ASS ESSMENT [facility] Start: 2021 Measurement of occul t blood in single stool specimen [facility] Start: 2021 Screening for malign ant neoplasm of colon CRC Screening [facility] Start: 2021 SHINGRIX VACCINE (1 of 2) SHINGRIX VACCINE (1 of 2) [facility] Start: 2021 Varicella-zoster vaccine (product) Shingles (RZV) Vaccine (1 of 2) [facility] Start: 12-03-2020 COVID-19 VACCINE (3 - Booster for Moderna series) COVID-19 VACCINE (3 - Booster for Moderna series) [facility] Start: 12-03-2020 COVID-19 VACCINE (3 - Moderna series) COVID-19 VACCINE (3 - Moderna series) [facility] Start: 2016 COLOGUARD (FIT-DNA) COLOGUARD (FIT-D NA) [facility] Start: 2016 Colonoscopy COLONOSCOPY [facility] Start: 2016 COLORECTAL CANCER SCREENING COLORECTAL CANCER SCREENING [facility] Start: [address] COLONOGRAPHY [facility] Start: 2016 FECAL OCCULT BLOOD FECAL OCCULT BLOO D [facility] Start: 2016 Screening for malign ant neoplasm of colon [facility] Start: 2016 SIGMOIDOSCOPY SIGMOIDOSCOPY [facility] Start: 06-12-2016 Tetanus vaccination [facility] Start: 06-12-2016 Urine microalbumin profile DTAP,TDAP,TD (2 - Td or Tdap) [facility] Start: 2006 Lipid panel [facility] Start: 1990 HEPATITIS A (1 of 2 - Risk 2-dose series) HEPATITIS A (1 of 2 - Risk 2-dose series) [facility] Start: 1989 ANNUAL PCP TEAM HOG TENDER KIERAN DISEASE VISIT ANNUAL PCP TEAM CHRONIC DISEASE VISIT [facility] Start: 1989 BP CONTROLLED (<130/80) BP CONTROLLE D (<130/80) [facility] Start: 1989 Hepatitis C screening Hepatitis C An tibody [facility] Start: 1989 HEPATITIS C SCREENING HEPATITIS C SC REENING [facility] Start: 1989 HIV SCREENING HIV SCREENING [facility] Start: 1986 HIV screening HIV Test [facility] Start: 1976 COVID-19 Vaccine (1) COVID-19 Vaccin e (1) [facility] Start: 1972 HEPATITIS A (1 of 2 - Risk 2-dose series) HEPATITIS A (1 of 2 - Risk 2-dose series) [facility] Start: 03-11-1972 COVID-19 Vaccine (#1) COVID-19 Vacci ne (#1) [facility] Start: 1971 HEPATITIS B (1 of 3 - 3-dose series) HEPATITIS B (1 of 3 - 3-dose series) [facility] Start: 1971 Screening for malign ant neoplasm of colon Colonoscopy [facility] Excision nail matrix permanent removal REMOVAL OF NAIL BED Procedures Routine Ingrowing nail Ordered: 11/07/[address] NICOLE JOE [employer] Work Phone: Comment on above: Ordered: 11/07/2022 Excision nail matrix permanent removal REMOVAL OF NAIL BED Procedures Routine Ingrowing nail Pain in toe of left foot H/O ingrown nail Ordered: 01/12/[address] NICOLE JOE [employer] Work Phone: Comment on above: Ordered: 01/12/2023 Patient Education Staph Infectio n (Non-MRSA) ED Insect Bite [facility] Work Phone: PSA screening [facility] [facility] CBCWD 04/23/[address] [facility] CT ABD PELVIS W IV CONTRAST 12/11/24 [facility] MR ABDOMEN W AND WO CONTRAST W MRCP 04/07/25 [facility] Immunizations Immunization Date Immunization Notes Care Provider Fa cility 10-08-2020 SARS-CoV-2 (COVID-19 ) mRNA-1273 vaccine ZULY GOMEZ MD Office [facility] 09-11-2020 SARS-CoV-2 (COVID-19 ) mRNA-1273 vaccine ZULY GOMEZ MD Office [facility] 06-12-2006 tetanus toxoid, reduced diphtheria toxoid, and acellular pertussis vaccine, adsorbed [facility] Payers Date Payer Category Payer Self-pay 2008 Unknown [id number] 2008 Unknown [id number] 2002 Worker's Compensation 1.2.84 [id number] 2000 Unknown [id number] 1971 Unknown [id number] 2.16.8 40.1.859132.3.579.2.159 1971 Unknown [id number] 2.16.8 40.1.006825.3.579.2.159 1971 Unknown [id number] 2.16.8 40.1.802329.3.579.2.159 1971 Unknown [id number] 2.16.8 40.1.516790.3.579.2.159 1971 Unknown [id number] 2.16.8 40.1.097801.3.579.2.159 1971 Unknown [id number] 2.16.8 40.1.508337.3.579.2.159 1971 Unknown [id number] 2.16.8 40.1.745219.3.579.2.159 1971 Unknown [id number] 2.16.8 40.1.347718.3.579.2.159 1971 Unknown [id number] 2.16.8 40.1.433578.3.579.2.159 1971 Unknown [id number] 2.16.8 40.1.741459.3.579.2.159 1971 Unknown [id number] 2.16.8 40.1.070503.3.579.2.159 1971 Unknown [id number] 2.16.8 40.1.791965.3.579.2.159 1971 Unknown [id number] 2.16.8 40.1.045566.3.579.2.159 1971 Unknown [id number] 2.16.8 40.1.964142.3.579.2.159 1971 Unknown [id number] 2.16.8 40.1.960992.3.579.2.159 1971 Unknown [id number] 2.16.8 40.1.991319.3.579.2.159 1971 Unknown [id number] 2.16.8 40.1.341111.3.579.2.159 1971 Unknown [id number] 2.16.8 40.1.566311.3.579.2.159 1971 Unknown [id number] 2.16.8 40.1.096480.3.579.2.159 1971 Unknown [id number] 2.16.8 40.1.476549.3.579.2.159 1971 Unknown [id number] 2.16.8 40.1.583569.3.579.2.159 1971 Unknown [id number] 2.16.8 40.1.081307.3.579.2.159 1971 Unknown [id number] 2.16.8 40.1.939342.3.579.2.159 1971 Unknown [id number] 2.16.8 40.1.330511.3.579.2.159 1971 Unknown [id number] 2.16.8 40.1.804875.3.579.2.159 1971 Unknown [id number] 2.16.8 40.1.942994.3.579.2.159 1971 Unknown [id number] 2.16.8 40.1.659291.3.579.2.159 1971 Unknown [id number] 2.16.8 40.1.484605.3.579.2.159 1971 Unknown [id number] 2.16.8 40.1.149410.3.579.2.159 1971 Unknown [id number] 2.16.8 40.1.089890.3.579.2.159 1971 Unknown [id number] 2.16.8 40.1.190375.3.579.2.159 1971 Unknown [id number] 2.16.8 40.1.378714.3.579.2.159 1971 Unknown [id number] 2.16.8 40.1.080081.3.579.2.159 1971 Unknown [id number] 2.16.8 40.1.155407.3.579.2.159 1971 Unknown [id number] 2.16.8 40.1.842912.3.579.2.159 1971 Unknown [id number] 2.16.8 40.1.409141.3.579.2.159 1971 Unknown [id number] 2.16.8 40.1.975593.3.579.2.159 Unknown [id number] 2.16.8 40.1.239935.3.579.2.462 Unknown [id number] 2.16.8 40.1.403300.3.579.2.462 Unknown [id number] 2.16.8 40.1.044492.3.579.2.462 Social History Date Type Detail Facility Start: 06-30-2014 End: 06-19-2024 Tobacco smoking status NHIS Ex-smoker [facility] History of tobacco use Cigarette Smoker [facility] Start: 11-01-2021 End: 05-01-2022 Alcohol intake Current drinker of alcohol (finding) [facility] Start: 1970 Sex Assigned At Not on file [facility] History of tobacco use Current smoker [facility] Start: 06-30-2014 End: 01-30-2023 Cigarettes smoked current (pack per day) - Reported 0.3 [facility] Start: 06-30-2014 Tobacco use and exposure Lloyd clarke smokeless tobacco user [facility] End: 08-18-1994 History of tobacco use Chews Tobacco [facility] Start: 04-11-2012 Alcohol Comment social [facility] Start: 05-01-2022 End: 01-30-2023 Tobacco use panel [facility] National Score (1-10 0), lower number is lower risk 23 [facility] Tobacco smoking stat NHIS Unknown if ever smoked [facility] Work Phone: Start: 1970 Sex Assigned At Male [facility] Start: 03-24-2025 [facility] Sexual Orientation Office [facility] Start: 07-27-2001 Sex Male (finding) [facility] Clinical Notes 04-08-2021 to 03-24-2025 Note Date & Type Note Facility 03-24-2025 Discharge summary [facility] 03-24-2025 Discharge summary Note Date/Time March 24, 2025 2:27pm [facility] Medical Records Department [id number] [place] [address] Emergency Department Summary 03/24/25 MR#: [id number] Acct: [id number] Name: XANDER THURAMN Rep #:[id number] : 1970 54 From: Benigno Berry DO PCP: ZULY GOMEZ Status:REG ER Location: ED HPI History of Present Illness Chief Complaint: Allergic Reaction Narrative Narrative: Patient is a 54-year-old male with past medical history hypertension who presents to the emergency department with concern for throat swelling. Patient states that he had been stung by horse flies recently states that the first timethis happened he called his doctor who gave him oral steroids and azithromycin he states that that went away states that a few days later he got stung in the left elbow was given another dose of steroids. Patient states that just recently got stung on the left cheek and felt like he had swelling of his throatconcerning him to have him brought here for further evaluation management. Patient denies any history of this happening. Patient states that he did take aBenadryl prior to arrival. He states that he is feeling better and has no othercomplaints at this point in time he states that the knot in his throat feels like it is going down. He did note that he is on doxycycline currently for a staph infection on his left leg that is healing well he states [facility] Medical History HTN (hypertension) Home Medications ?Medication ?Instructions ?Recorded ?Last Taken ?Type amlodipine 5 mg tablet 5 mg PO DAILY 03/24/25 Unkno wn History carvedilol 12.5 mg tablet 12.5 mg PO BID 03/24/25 Unkn own History doxycycline hyclate 100 mg capsule 100 mg PO BID 03/24 Unknown History ergocalciferol (vitamin D2) 1,250 1,250 mcg PO QWEEK 0 03/24/25 Unknown History mcg (50,000 unit) capsule evolocumab 140 mg/mL subcutaneous 140 mg subcut Unknown History syringe (Repatha Syringe) valsartan 320 mg tablet 320 mg PO DAILY 03/24/25 Unk nown History Allergy/AdvReac Type Severity Reaction Status Date / Time No Known Allergies Allergy Verified 03/24/25 10:50 Social History Smoking Status: Never smoker ROS ROS ED ROS Narrative Constitutional: Denies any fevers, chills, headaches Eyes, ears, nose, throat: Complains of lump in the back of his throat as noted above denies difficulty swallowing denies change in vision double vision blurry vision Cardiovascular: Denies chest pain Respiratory: Denies coughing wheezing shortness of breath Abdomen: Denies abdominal pain nausea vomiting diarrhea : Denies urinary symptoms Neurological: Denies numbness, wheeze, tingling Musculoskeletal: Denies back pain Skin: Denies any rashes or lesions EXAM Physical Exam Narrative Exam Narrative: General: Patient was lying in bed rest comfortably did not appear to be in acutedistress Head: Atraumatic, normocephalic Eyes, ears, nose, throat: No intraoral lesions noted. PERRL bilaterally, EOMI by, no conjunctival injection noted, no sublingual swelling noted Neck: Soft, supple, trachea midline, no concern for Arnulfo's angina Cardiovascular: Regular rate and rhythm Respiratory: Clear to auscultation bilaterally Abdomen: Soft, nondistended, no tenderness palpation Extremities: +5/5 strength noted in the bilateral upper and lower extremities, radial pulses +2/4 in the bilateral extremities Neurological: Patient following commands knew that he was at [facility] years 2024 Skin: Warm, dry, intact no rashes no lesions no hives noted Const Vital Signs: 03/24/25 10:46 03/24/25 11:46 03/24/25 12:08 Temperature 97.6 F L Temperature Source Oral Pulse Rate 96 87 89 Respiratory Rate 16 13 18 Blood Pressure 157/114 H 142/91 H 138/90 H Blood Pressure Mean 128 108 106 Pulse Ox 98 97 95 Oxygen Delivery Method Room Air Room Air 03/24/25 13:00 03/24/25 13:30 Temperature Temperature Source Pulse Rate 87 86 Respiratory Rate 11 L 17 Blood Pressure 148/90 H 148/90 H Blood Pressure Mean 109 105 Pulse Ox 99 95 Oxygen Delivery Method MDM MDM MDM Narrative Medical decision making narrative: Patient is a 54-year-old male who presented to the emergency department with a chief complaint of concern for swelling of his throat. On the differential diagnose includes but not limited to allergic reaction, anaphylaxis although have low suspicion for this as he was stung yesterday and not today, anxiety. Once workup is obtained reviewed he will be reevaluated. Patient BMP reviewed shows sodium 139, potassium was 4.3, creatinine normal 1. Patient glucose normal at 95. Patient's CT soft tissue neck reviewed and showedno acute abnormalities noted. Reevaluated the patient and he is feeling much improved and would like to go home. He was advised to stay on the doxycycline that he is already prescribed by his doctor for the staph infections. He was advised to return with worseningsymptoms or concerns. On repeat exam at 2:25 PM there is no sublingual swellingnoted still and no concern for Arnulfo's angina. No intraoral lesions. At this point time do have low suspicion for anaphylactic type reaction as he did not develop hives and this happened yesterday. Lab Data Labs: Laboratory Results - last 24 hr 03/24/25 11:16 Sodium 139 Potassium 4.3 Chloride 105 Carbon Dioxide 22.0 Anion Gap 12 BUN 13 Creatinine 1.00 Estim Creat Clear Calc 110.87 Est GFR (MDRD) Non-Af 90 BUN/Creatinine Ratio 12.6 Glucose 95 Calcium 8.7 Radiography Diagnostic Testing: Clinical Impression(s) from Imaging Studies Soft Tissue Neck CT 03/24/25 12:31 IMPRESSION: No acute abnormality is seen. Reading Location: [place] [address] Discharge Plan Triage Chief Complaint: Allergic Reaction ED Provider: Benigno Berry Dx/Rx/DC Orders Clinical Impression: Sensation of swollen throat, Bug bite, History of staph infection Prescriptions: No Action doxycycline hyclate 100 mg capsule 100 mg PO BID carvedilol 12.5 mg tablet 12.5 mg PO BID amlodipine 5 mg tablet 5 mg PO DAILY valsartan 320 mg tablet 320 mg PO DAILY ergocalciferol (vitamin D2) 1,250 mcg (50,000 unit) capsule 1,250 mcg PO QWEEK Repatha Syringe 140 mg/mL syringe 140 mg subcut Primary Care Provider: ZULY GOMEZ Referrals: ZULY GOMEZ [Other] Activity Restrictions/Additional Instructions: Follow-up your doctor in outpatient setting. Return with worsening symptoms or any concerns. Your CT scan of your neck did not show any acute findings. Take the antibiotics doxycycline as prescribed. Use Benadryl for the next 2 days as well. Print Language: Cuban Disposition Disposition: Home, Self Care What to do if you have Problems For any increased pain, shortness of breath, bleeding, nausea or vomiting, chest pain, or any unexpected problems, contact your Primary Care Provider. Call [facility] ([phone]) or report to the closest Emergency Room. Call 911 if necessary. 03/24/257 <Electronically signed by Benigno Berry DO> Cosigner Signature (if applicable): CC: ZULY GOMEZ ~ Signed [facility] Work Phone: [phone] 536-853607-07-2025 Radiology Diagnostic study note [facility] Imaging Services [address] [place], [place] [address] Soft Tissue Neck WITH Contrast MR#: [id number] Acct: [id number] Name: ZOEFigueroaXANDER PLASCENCIA Rep #: [id number] : 1970 M 54 From: Bk Pierre MD PCP: ZULY GOMEZ Status: REG ER Study:Soft Tissue Neck WITH Contrast Date of Exam: 03/24/25 Exam# [id number] Ordering Dr: Figueroa Berry DO PROCEDURE: SOFT TISSUE NECK WITH CONTRAST 03/24/2025 REASON FOR EXAM: SWELLING ANTERIOR NECK TECHNIQUE: SOFT TISSUE NECK WITH CONTRAST CONTRAST: Isovue 370 VOLUME: 75 mL One or more dose reduction techniques were used (e.g., Automated exposure control, adjustment of the mA and/or kV according to patient size, use of iterative reconstruction technique). RADIATION DOSE SUMMARY: CTDlvol: 19.68 mGy DLP: 693.43 mGycm COMPARISON: None FINDINGS: Airway: Midline and patent. Salivary glands: Unremarkable. Lymph nodes: No cervical lymphadenopathy. Thyroid: Unremarkable. Vasculature: Carotid arteries and internal jugular veins are unremarkable. Orbits: Unremarkable at visualized levels. Paranasal sinuses and mastoids: Grossly clear at visualized levels. Lung apices: Clear. Upper mediastinum: Visualized mediastinum is unremarkable. Bones: Multilevel degenerative changes of the spine. Other: CT/Soft Tissue Neck WITH Contrast IMPRESSION: No acute abnormality is seen. Reading Location: [place] [address] CC: Dr. Benigno Berry DO; ZULY GOMEZ ~ Escort Service Attendant: Signed [facility]07-16-2023 History of Present illness Narrative* Brian Joe DPM - 04/02/2023 10:41 PM EDT The patient presents the office with a chief complaint of my right big toe is tender and sore and there is pain on the inside of it. he has incurvation of the right hallux medial border. Diagnosis ingrown nail right hallux medial border. Treatment after anesthesia remove for nail and matrix of the right hallux medial border. Patient will be monitored for the next several days and follow-up to my office in 2 days [facility] History of Present illness Narrative* Brian Joe DPM - 01/17/2023 6:53 AM EDT The patient presents to the office with a chief complaint of the left toe is feeling better after the surgery patient had a removal ingrown nail left hallux medial border. There Was no signs or symptoms of infection or drainage in this area. Diagnosis postop removal ingrown nail left hallux medial border. Patient is improving and doing well. Treatment clean the wound apply dry sterile dressing to the left hallux and have the patient returnthe office within next 2 weeks. Was also advised to continue to place Neosporin cream and a Band-Aid over the left big toe during the daytime. [facility] History of Present illness Narrative* Brian Joe DPM - 12/17/2022 6:35 PM EDT Patient presents to the office with a chief complaint of that the ingrown nails are doing well I have no tenderness or pain in the toes. Diagnosis.ingrown nail Of the right and left hallux is showing improvement. Treatment clean the wound apply dry sterile dressing to both big toes. [facility] History of Present illness Narrative* Brian Joe DPM - 12/17/2022 3:30 PM EDT rThe patient presents to the office with a chief complaint of I have an ingrown nail on the left foot the medial border and the right foot the lateral border. States that the ingrown nail was gettingworse and days and to my toes when wearing shoes. Diagnosis ingrown nail bilateral hallux right the lateral and the left of the medial border. Treatment after 4 cc into the right and left hallux individually the left hallux medial aspect had the border removed as well as the matrix. The right hallux lateral border had the nail and matrix removed as well. Patient was giving oral written home going instructions and will be follow-up within the next several days. Prescription for Percocet 01/18/25 will be given 1 tab every 12 hours [facility] NoteHNO ID: [id number] Author: Brian Joe DPM Service: ? 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 O: HAV, left foot; metatarsal deformity, B/L ? A: HAV, left foot; metatarsal deformity, B/L ? P: Orthotics were dispensed to the patient. Patient was asked to walk around with the orthotics in order to assess their comfort level. No complaints at this time. Orthotic wearing instructions were given to the patient. RTC 2 weeks Scribed by Aissatou Joe [facility]02-23-2022 NoteHNO ID: [id number] Author: Brian Joe DPM Service: ? Author Type: Physician Type: Progress Notes Filed: 11/10/2021 12:19 PM Note Text: S: Patient presents to clinic for follow up of removable met pads and left ankle pain. O: HAV, left foot; metatarsal deformity, B/L A: HAV, left foot; metatarsal deformity, B/L P: Orthotic adjustments were made, including adding spenco to the top cover of the orthotics. Patient was asked to assess their comfort level, no concerns at this time. RTC 2 weeks Scribed by WOJCIECH [facility]13-2022 NoteHNO ID: [id number] Author: Brian Joe DPM Service: ? Author Type: Physician Type: Progress Notes Filed: 10/31/2021 2:49 PM Note Text: The patient presents to the office with a chief complaint of the left foot at the base of my fifth metatarsal is uncomfortable and sore. The patient had x-rays of the left foot and the medial aspect of the first metatarsal is drifting medially. The area at the base of the fifth metatarsal of the left foot is sore when palpated. And has some tenderness along the peroneal brevis tendons when palpated. Diagnosis tendinitis secondary to medial rotation of first and second metatarsal. Rotation is causing stress on the peroneal brevis tendon of the left foot. Valgus deformity left foot. Treatment x-rays of the left foot along with strapping of the left medial arch will be addressed of the next week. Patient was given a removable foam pad to control the medial rotation of the left foot. She will be considered for custom-made orthotics if the strapping and padding of the arch helps.[facility]07-23-2021 NoteSend Summary: Discharge Summary Providers: Provider RoleProvider Name Mason Zuniga Nadim PrimaryFetterman, Timothy James Note Recipients: Zuly Gomez MD - [id number] [Only at this location til January 2016] Discharge: Summary: Admission Date: .08-Apr-2021 11:56:00 Discharge Date: 09-Apr-2021 Attending Physician at Discharge: Mason Bain Admission Reason: chest tightness Final Discharge Diagnoses: Chest tightness Procedures: none Condition at Discharge: Fair Disposition at Discharge: .Home Vital Signs: T PRBPSpO2 Value36.46271283/7996% Date/Time04/09 11:5904/09 11: 11:5904/09 11:5904/09 11:59 Range(36C - 36.9C ) (80 - 101 ) (16 - 24 ) (132 - 180 )/ (69 - 112 ) (93% - 99% ) Highest temp of 36.9 C was recorded at 04/08 16:00 Date: Weight/Scale Type:Height: 09-Apr-2021 04:44163.8 kg / bed Physical Exam: Constitutional: Well developed, awake/alert/oriented x3, no distress, alert and cooperative Eyes: PERRL, EOMI, clear sclera ENMT: mucous membranes moist Head/Neck: Neck supple Respiratory/Thorax: CTA b/l. Cardiovascular: Regular, rate and rhythm, no murmurs Gastrointestinal: Nondistended, soft, non-tender Musculoskeletal: ROM intact Extremities: normal extremities Hospital Course: XANDER THURMAN is a 50 year old Male who presented to the emergency department for near syncope. Patient reports that he has been feeling nauseated and off for the last several days. He was seen in the [facility] emergency department for evaluation of right hand and arm swelling 2d ago. That had been going on for about 4 days and started in the antecubital fossa and progressed to hand swelling. He had been on a trip camping recently. He had a duplex ultrasound that was negative for DVT and D-dimer at that time was also negative. The hand swelling was improved from prior and he was discharged from the ED. He reports today when he woke up he was extremely nauseated and lightheaded. He checked his blood pressure which were >180s/100s. He reports he did a short shift of work today and became dizzy with blurred vision, shortness of breath and then developed chest tightness as well. He checked his blood pressure several other times and they were all just as elevated as initially . Eventually he felt like he was going to have a syncopal episode and he decided to come in for further evaluation. He reports with the recent arm swelling he was worried about a blood clot/PE. He also has a history of CAD status post stenting. He reports the chest tightness is similar to previous when he required the stent. In the ED vital signs were significant for heart rate of 103, respiratory rate of 20. 18.9, hematocrit of 55.2, D-dimer less than 215, sodium 133, T bili 1.3. CXR showed acute cardiopulmonary process. Patient was admitted for further evaluation of near syncope likely due to hypertensive urgency. 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 He did continue to have intermittent chest pain. Patient was taken for left heart cath on 04/09/[address] Saavedra, per report no blockage was found. Echo was done which showed normal EF without reported wall motion of normality. Patient cleared by cardiology for discharge and follow-up as outpatient. I have spent > 30min discharging the pt, care time spent include discharge planning, medication reconciliation and discussion of discharge instruction/follow up with the patient. Discharge Information: and Continuing Care: Lab Results - Pending: None Radiology Results - Pending: None Discharge Instructions: f/u with cardiology f/u with pcp Follow Up Appointments: Follow-Up Appointment 01: Physician/Dept/Service: Your primary care physician Reason for Referral: Hospital follow-up Call to Schedule in: 1 week Follow-Up Appointment 02: Physician/Dept/Service: Your associate chemist Reason for Referral: Chest pain Call to Schedule in: 1 week Discharge Medications: Home Medication valsartan-hydrochlorothiazide 320mg-25mg oral tablet - 1 tab(s) orally once a day Praluent Pen 75 mg/mL subcutaneous solution - 75 milligram(s) subcutaneous every 2 weeks testosterone cypionate 200 mg/mL intramuscular solution - 200 milligram(s) intramuscular every 2 weeks aspirin 81 mg oral tablet - 1 tab(s) orally once a day carvedilol 6.25 mg oral tablet - 1 tab(s) orally 2 times a day amLODIPine 10 mg oral tablet - 1 tab(s) orally once a day PRN Medication Electronic Signatures: Mason Bain) (Signed 09-Apr-2021 13:44) Authored: Send Summary, Summary Content, Ongoing Care, Note Completion (more content not included)...[facility] NoteHistory of Present Illness: HPI: XANDER THURMAN is a 50 year old Male who presented to the emergency department for near syncope. Patient reports that he has been feeling nauseated and off for the last several days. He was seen in the [facility] emergency department for evaluation of right hand and arm swelling 2d ago. That had been going on for about 4 days and started in the antecubital fossa and progressed to hand swelling. He had been on a trip camping recently. He had a duplex ultrasound that was negative for DVT and D-dimer at that time was also negative. The hand swelling was improved from prior and he was discharged from the ED. He reports today when he woke up he was extremely nauseated and lightheaded. He checked his blood pressure which were >180s/100s. He reports he did a short shift of work today and became dizzy with blurred vision, shortness of breath and then developed chest tightness as well. He checked his blood pressure several other times and they were all just as elevated as initially . Eventually he felt like he was going to have a syncopal episode and he decided to come in for further evaluation. He reports with the recent arm swelling he was worried about a blood clot/PE. He also has a history of CAD status post stenting. He reports the chest tightness is similar to previous when he required the stent. In the ED vital signs were significant for heart rate of 103, respiratory rate of 20. 18.9, hematocrit of 55.2, D-dimer less than 215, sodium 133, T bili 1.3. CXR showed acute cardiopulmonary process. Patient was admitted for further evaluation of near syncope likely due to hypertensive urgency. 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) PSH: back surgery, knee surgery, cardiac cath with stent Social: denies tobacco or drug use, reports occasional alcohol use FH: reviewed Allergies: NKDA Comorbidities: Comorbidites: Comorbid Conditionshypertension Allergies: No Known Allergies: Medications Prior to Admission: amLODIPine 5 mg oral tablet: 1 tab(s) orally once a day valsartan-hydrochlorothiazide 320mg-25mg oral tablet: 1 tab(s) orally once a day Praluent Pen 75 mg/mL subcutaneous solution: 75 milligram(s) subcutaneous every 2 weeks testosterone cypionate 200 mg/mL intramuscular solution: 200 milligram(s) intramuscular every 2 weeks aspirin 81 mg oral tablet: 1 tab(s) orally once a day. Review of Systems: Eyes: POSITIVE: Blurry Vision Respiratory: POSITIVE: Shortness of Breath Cardiac: POSITIVE: Chest Pain Neurological: POSITIVE: Dizziness; COMMENTS: near syncope All Other Systems: All other systems reviewed and are negative Objective: Objective Information: T PRBPSpO2 Value36.74202820/8896% Date/Time04/08 12:167 14: 14: 14: 14:09 Range(36.5C - 36.5C ) (93 - 103 ) (20 - 20 ) (153 - 159 )/ (82 - 88 ) (95% - 96% ) Pain reported at 04/08 14:09: 2 = Mild Physical Exam by System: Constitutional: NAD, resting comfortably, calm and cooperative Eyes: EOMI, clear sclera ENMT: mucous membranes moist Respiratory/Thorax: CTAB, no wheezes, rhonchi or rales Cardiovascular: tachycardia Gastrointestinal: Distended but soft, non-tender, no rebound tenderness or guarding, +BS Musculoskeletal: ROM intact Extremities: normal extremities, no LE edema, no RUE edema, no contusions or wounds, no clubbing Neurological: alert and oriented x3 Psychological: Appropriate mood and behavior, slightly anxious Skin: Warm and dry, tattoos Medications: Medications: Continuous Medications No continuous medications are active Scheduled Medications No scheduled medications are active PRN Medications 1. Acetaminophen: 650 mg Oral Every 4 Hours 2. Acetaminophen: 650 mg Oral Every 4 Hours 3. Ondansetron Injectable: 4 mg IntraVenous Push Every 4 Hours Conditional Medication Orders 1. Perflutren Lipid Microsphere (Activated) 1.3 mL / NaCL 0.9% T.V. 10 mL Injectable: 0.5 mL IntraVenous Push Once Recent Lab Results: Results: CBC: 04/08/2021 12:27 \ Hgb / \ 18.9 H / WBC Plt 6.9 210 / Hct \ / 55.2 H \ RBC: 5.88 MCV: 94 Neutrophil %: 46.7 CMP: 04/08/2021 12:27 NA+ Cl- BUN / 133 L 101 14 / Glucose 114 H K+ HCO3- Creat \ 3.9 23 1.12 \ \ T Bili / \ 1.3 H / AST x ---- x ALT 35 x ---- x 44 / Alk P \ / 40 \ Calcium : 9.5 Anion Gap : 13 Albumin : 4.8 T Protein : 7.6 Coagulation: null PT / / -------< INR < PTT\ \ Radiology Results: Results: Impression: 1. No acute pulmonary infiltrate. Signed by Judie García (more content not included)...[facility] Future Appointments Appointment Date:06/20/2025 09:15:00 AM Scheduled Provider:MALICK PINEDO CNP Location:[facility] Appointment Type:Established Patient Appointment Date:07/02/2025 09:40:00 AM Scheduled Provider:DEYSI PRAJAPATI Location:Endocrinology Appointment Type:Thyroid Follow Up Appointment Date:09/15/2025 09:40:00 AM Scheduled Provider:ZULY GOMEZ MD Location:[facility] Appointment Type:Office Visit Future Scheduled Tests Laboratory* Testos F and T ED-LC/MS Male 07/02/25 * TESTOS TOT 07/03/24 * IRON GROUP 07/02/25 * LH 07/02/25 * FSH 07/02/25 * CBCWD 04/23/25 * TSH with FT4 Reflex 07/02/25 * Sex Hormone Binding Globulin 07/02/25 Radiology* CT ABD PELVIS W IV CONTRAST 12/11/24 * MR ABDOMEN W AND WO CONTRAST W MRCP 04/07/25 Office [facility] Evaluation note* Diagnosis Ingrowing nail- [facility]* Diagnosis Plantar wart- [facility]* Diagnosis Ingrowing nail- Primary documented in this encounter [facility] note* Diagnosis Ingrowing nail- Primary Pain in toe of right foot Pain in limb Pain in toe of left foot Pain in limb H/O ingrown nail Personal history of diseases of skin and subcutaneous tissue documented in this encounter [facility] noteNo assessment information availableWOhio State Health System Work Phone: Hospital course Narrative No data available for this section Office [facility] Hospital Discharge instructionsAdditional Instructions Follow-up your doctor in outpatient setting. Return with worsening symptoms or any concerns. Your CT scan of your neck did not show any acute findings. Take the antibiotics doxycycline as prescribed. Use Benadryl for the next 2 days as well.[facility] Work Phone: Hospital Discharge instructions No data available for this section Office [facility] Progress note No data available for this section Office [facility] Reason for referral (narrative)No reason for referral information availableWOhio State Health System Work Phone: Summary Purpose Family History No Family History Records FoundNo Family History Records FoundNo Family History Records FoundNo Family History Records FoundNo Family History Records Found No data available for this section No Family History Records Found No data available for this section Advance Directives Advance Directive Response Recorded Date/ Time Do you have a Healthcare Power of Singer Back Tender? No March 24, 2025 11:44am Chief Complaint and Reason for Visit Chief Complaint Admit Date ALLERGIC March 24, 2025 10:45 am Additional Source Comments (unrecognized sect ion and content) No Status Records FoundNo Status Records FoundNo Status Records FoundNo Status Records FoundNo Status Records FoundNo Status Records Found INFORMATION SOURCE (unrecogn ized section and content) DATE CREATED AUTHOR 12/29/2019 [facility] DATE CREATED AUTHOR AUTHOR'S ORGANIZ ATION 04/17/2021 [facility] DATE CREATED AUTHOR AUTHOR'S ORGANIZ ATION 12/06/2021 [facility] DATE CREATED AUTHOR AUTHOR'S ORGANIZ ATION 07/06/2023 [facility] DATE CREATED AUTHOR AUTHOR'S ORGANIZ ATION 04/18/2025 [facility] DATE CREATED AUTHOR AUTHOR'S ORGANIZ ATION 07/21/2025 [facility] Source Comments (unrecognize d section and content) In the event this informatio n is protected by the Federal Confidentiality of Alcohol and Drug Abuse Patient Records regulations: The Federal rules restrict any use of the information to criminally investigate or prosecute any alcohol or drug abuse patient.[facility] the event this information is protected by the Federal Confidentiality of Alcohol and Drug Abuse Patient Records regulations: The Federal rules restrict any use of the information to criminally investigate or prosecute any alcohol or drug abuse patient.[facility] Hospital[facility] the event this information is protected by the Federal Confidentiality of Alcohol and Drug Abuse Patient Records regulations: The Federal rules restrict any use of the information to criminally investigate or prosecute any alcohol or drug abuse patient.[facility] Hospital[facility] the event this information is protected by the Federal Confidentiality of Alcohol and Drug Abuse Patient Records regulations: The Federal rules restrict any use of the information to criminally investigate or prosecute any alcohol or drug abuse patient.[facility] Care Teams (unrecognized sec tion and content) Care Team Personnel Name: ZULY GOMEZ MD Position: APPPhysician - Primary Care Member Role: Primary Care Physician Address: [id number] [id number] Telecom: Care Team Related Persons Name: JACKI THURMAN Name: ZOEJULIETTE Marti Name: GEOVANNY THURMANEN MELISSA Name: CUCAERIS Team Status: Active Member Role Status Dates No Primary Care Physician Primary Care Provider Active Team Status: Inactive Member Role Status Dates No Primary Care Physician Primary Care Provider Active Start: February 20, 2025 End: February 20, 2025 Dr. Bobo Maria MD Attending Provider Active S tart: February 20, 2025 End: February 20, 2025 Dr. Bobo Maria MD Referring Provider Active S tart: February 20, 2025 End: February 20, 2025 Team Status: Active Member Role/Relationship Status Dates ZULY GOMEZ Primary Care Provider Active Team Status: Inactive Member Role/Relationship Status Dates No Primary Care Physician Primary Care Provider Active Start: February 20, 2025 End: February 20, 2025 Dr. Bobo Maria MD Attending Provider Active S tart: February 20, 2025 End: February 20, 2025 Dr. Bboo Maria MD Referring Provider Active S tart: February 20, 2025 End: February 20, 2025 Team Status: Inactive Member Role/Relationship Status Dates Dr. Benigno Berry DO Emergency Provider Active Start: March 24, 2025 End: March 24, 2025 JASON CARUSO Primary Care Provider Active Start: March 24, 2025 End: March 24, 2025 Team Status: Inactive Member Role/Relationship Status Dates Dr. Benigno Berry DO Attending Provider Active Start: March 24, 2025 End: March 24, 2025 Dr. Benigno Berry DO Emergency Provider Active Start: March 24, 2025 End: March 24, 2025 JASON CARUSO Primary Care Provider Active Start: March 24, 2025 End: March 24, 2025 Team Status: Inactive Member Role/Relationship Status Dates JASON CARUSO Primary Care Provider Active Start: April 10, 2025 End: April 10, 2025 DUANE Fried Attending Provider Active Start: April 10, 2025 End: April 10, 2025 DUANE Fried Referring Provider Active Start: April 10, 2025 End: April 10, 2025 Goals (unrecognized section and content) Goals may be documented in a n alternate sectionGoals may be documented in an alternate sectionGoals may be documented in an alternate section No data available for this section No data available for this section FOR RECORDS PERTAINING TO PATIENTS WHO ARE OR HAVE BEEN ENROLLED IN A CHEMICAL DEPENDENCY/SUBSTANCEABUSE PROGRAM, SOME INFORMATION MAY BE OMITTED. This clinical summary was aggregated from multiple sources. Caution should be exercised in using it in the provision of clinical care. This summary normalizes information from multiple sources, and as a consequence, information in this document may materially change the coding, format and clinical context of patient data. In addition, data may be omitted in some cases. CLINICAL DECISIONS SHOULD BE BASED ON THE PRIMARY CLINICAL RECORDS. [facility] [employer] [facility]. provides no warranty or guarantee of the accuracy or completeness of information in this document.
[2025-08-23 08:11] LABS: Partial Thromboplast Time 28.4 Seconds (24.1-36.2)
[2025-08-23 08:20] LABS: D-Dimer Quantitative (DVT/PE) 0.28 FEU/ug/m (0.27-0.49)
[2025-08-23 09:44] LABS: Troponin T High Sens 2 HR 7 ng/L (<=22)
[2025-08-23 10:15] VITALS: BP 140/93; PULSE 88; RESP 16; TEMP 36.9; O2SAT 98
== END 2025-08-23 10:16 | disposition home or self-care (01) ==
PROVIDERS: Emergency Provider Emergency Medicine; Visit Provider Emergency Medicine
DX: E86.0 Dehydration (principal); R07.89 Other chest pain; R06.00 Dyspnea, unspecified; I10 Essential (primary) hypertension; I25.2 Old myocardial infarction; I25.10 Atherosclerotic heart disease of native coronary artery without angina pectoris; Z95.5 Presence of coronary angioplasty implant and graft; Z79.82 Long term (current) use of aspirin; Z79.899 Other long term (current) drug therapy; F17.290 Nicotine dependence, other tobacco product, uncomplicated
CPT/HCPCS: 71045; 80048; 83880; 84484; 85025; 85379; 85730; 93005; 96361; 96374; 99284; A4216; J2405